=== PATIENT | female | born 1945 | race Caucasian/White ===

== ENCOUNTER 2016-11-14 17:52 | Emergency (ER) | payer MEDICARE, MEDICAID ==
[~2016-11-14] VITALS: Ht 167.6 cm; Wt 61.4 kg
[~2016-11-14 17:52] MED LIST: ACET1TAB17 PO; AMLO5TAB2 PO; ASCO500T PO; B-1210009 PO; COLA100C5 PO; COUM2.5T17 PO; COUM7.5T PO; DOCU100T8 PO; ENEM1ENE4 PR; FLEEENE4 PR; FOLI1TAB4 PO; LISI10TA4 PO; MAPA325T2 PO; MILKSUS PO; MILKSUS5 PO; MIRA3350 PO; NICO14DI20 TD; NICO14PA TD; NICO7DIS4 TD; PEG1POW PO; PERC5TAB12 PO; PERCOCET PO; VANC1VLAD INJ; VITA-193 PO; VITA500T PO; ZOSY1SOL5 IV
[2016-11-14] MEDS ORDERED: NS 1,000 ML IV ONE ×2 (19:45→22:30)
[2016-11-14] MEDS ORDERED: ONDANSETRON 4MG/2ML VIAL (J2405) IV ONE (19:45)
[2016-11-14] MEDS ORDERED: MORPHINE 4 MG/ML 1ML SYRINGE IV PRN (19:45)
[2016-11-14] MEDS ORDERED: GASTROGRAFIN SOLUTION 30ML PO ONE (20:00)
[2016-11-14 20:21] LABS: ADD MANUAL DIFFER YES; MEAN CORPUSCULAR HEMOGLOBIN 33.7 pg (27.0-33.0); MEAN CORPUSCULAR HGB CONC 34.6 g/dl (32.0-36.5); MEAN CORPUSCULAR VOLUME 97.4 fl (80.0-96.0); PLATELET COUNT, AUTOMATED 171 k/mm3 (150-450); RED CELL DISTRIBUTION WIDTH 13.9 % (11.5-14.5); WHITE BLOOD COUNT 13.7 K/mm3 (4.0-10.0)
[2016-11-14] MEDS ORDERED: GASTROGRAFIN SOLUTION 30ML (Q9963) PO ONE (20:30)
[2016-11-14 20:36] LABS: BANDS 5 % (< 11); TOXIC VACUOLATION 1+
[2016-11-14 21:16] LABS: INR 1.21
[2016-11-14 21:33] LABS: ALBUMIN 3.7 GM/DL (3.2-5.2); ALBUMIN/GLOBULIN RATIO 1.19 (1.00-1.93); ALKALINE PHOSPHATASE 203 U/L (45-117); ALT/SGPT 744 U/L (12-78); ANION GAP 12 MEQ/L (8-16); AST/SGOT 906 U/L (15-37); BILIRUBIN,DIRECT 3.9 MG/DL (0.0-0.2); BILIRUBIN,TOTAL 5.2 MG/DL (0.2-1.0); BLOOD UREA NITROGEN 16 MG/DL (7-18); CALCIUM LEVEL 8.5 MG/DL (8.8-10.2); CARBON DIOXIDE LEVEL 22 MEQ/L (21-32); CHLORIDE LEVEL 102 MEQ/L (98-107); CREATININE FOR GFR 0.92 MG/DL (0.55-1.02); GLOMERULAR FILTRATION RATE > 60.0 (>45); GLUCOSE, FASTING 185 MG/DL (80-110); POTASSIUM SERUM 3.4 MEQ/L (3.5-5.1); SODIUM LEVEL 136 MEQ/L (136-145); TOTAL PROTEIN 6.8 GM/DL (6.4-8.2)
[2016-11-14] MEDS ORDERED: ISOVUE-370 76% 100ML VIAL (Q9967) As Ordered ONE (21:38)
--- NOTE | 2016-11-14 22:20 | REPUSA ---
CT of the abdomen and pelvis with contrast Clinical statement: Pain. Technique: Multiple axial CT images were obtained from the base of the lungs through the floor of the pelvis utilizing 5 mm axial slices after administration of nonionic intravenous contrast. Coronal an d sagittal reconstructions were also obtained. No comparison is available. Findings: Chest: The visualized lung bases demonstrated minimal bilateral atelectasis. Abdomen: The liver, spleen, pancreas, kidneys, and adrenal glands are unremarkable. There is a 2.2 x 1.2 cm gallstone in the distal common bile duct, causing moderately severe extrahepatic biliary ducta l dilatation measuring 12 mm. The gallbladder significantly distended, with significant pericholecyst ic free fluid. The gallbladder wall is thickened measuring up to 13 mm. There is a 1.9 cm gallstone i n the neck of the gallbladder is well. The aorta is borderline dilated in the proximal aspect, measur ing 3.1 x 3.1 cm. There is no evidence of abdominal lymphadenopathy. Pelvis: The bowel is unremarkable, with no obstructive or inflammatory changes. There is diffuse left -sided diverticulosis. The urinary bladder is within normal limits. The other pelvic structures appea r grossly intact. There is no evidence of pelvic lymphadenopathy or ascites. Bones: There are no suspicious osseous abnormalities seen. Right hip arthroplasty is intact. Impression: 1. Cholelithiasis with gallbladder wall thickening. Severe extrahepatic biliary ductal dilatation cau sed by a distal obstructing stone. This conglomeration of findings suspicious for acute cholecystitis . Clinical correlation is recommended. 2. Diffuse left-sided diverticulosis without evidence of diverticulitis. 3. 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 4. Minimal atelectasis in the lung bases bilaterally.
[2016-11-14] MEDS ORDERED: PIPERACILLIN/TAZOBACTAM SOD 3.375 GM in D5W MINI-BAG PLUS 50 ML IV ONE (22:45)
[2016-11-15 01:44] VITALS: BP 156/70
--- NOTE | 2016-11-15 07:29 | ECGEPIP ---
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
== END 2016-11-15 01:46 | disposition short-term general hospital (02) ==
LOC: M ED 21:06
DX: K80.70 Calculus of gallbladder and bile duct without cholecystitis without obstruction (principal); R11.2 Nausea with vomiting, unspecified; F17.210 Nicotine dependence, cigarettes, uncomplicated; Z72.89 Other problems related to lifestyle; Z88.5 Allergy status to narcotic agent
CPT/HCPCS: 36415; 74177; 80048; 80076; 82550; 82553; 83605; 83690; 84484; 85025; 85610; 85730; 86850; 86900; 86901; 93005; 93041; 96361; 96374; 96375; 99285; G0480; J2405; J2543; Q9963; Q9967

== ENCOUNTER 2019-02-09 14:40 | Inpatient (IN) | payer MEDICARE, MEDICAID ==
[~2019-02-09] VITALS: Ht 170.2 cm; Wt 54.2 kg
[~2019-02-09 14:40] MED LIST changes: -ACET1TAB17 PO; +ACET1TAB55 PO; -AMLO5TAB2 PO; +AMLO5TAB6 PO; +CYAN500T9 PO; +FOLI1TAB11 PO; -FOLI1TAB4 PO; +MILK120011 PO; -MILKSUS PO; -VITA-193 PO
[2019-02-09] MEDS ORDERED: NORCO, ANEXSIA 5/325MG TABLET (HYDROcodone/ACETAMINOPHEN) PO ONE (15:45)
--- NOTE | 2019-02-09 16:31 | REP ---
CT of the brain without IV contrast: There are no comparisons. There is no subdural or epidural hematoma. There is no intraparenchymal or subarachnoid hemorrhage. There is no edema, mass effect or midline shift. The cortical stripe is unremarkable. There is diffuse cerebral atrophy. Impression: No subdural or epidural hematoma or other acute intracranial hemorrhage. No mass effect, edema or midline shift. Diffuse cerebral atrophy. Electronically Signed by Tin Calzada MD 02/09/2019 04:22 P
[2019-02-09] MEDS ORDERED: LIDOCAINE 2% 5ML JELLY UROJET TOP ONE (16:45)
--- NOTE | 2019-02-09 16:51 | REP ---
AP pelvis: There is a fracture of the left femoral neck. There is no dislocation. Additionally, there is a right hip hemiarthroplasty. Just superior to the arthroplasty. There is a bony fragment within the soft tissues lateral to the right acetabular roof of uncertain significance. This was not present on the postoperative study of the right hip dated 09/15/2015. Left hip two views: There is a fracture of the left femoral neck. There is slight cephalic migration of the distal fracture fragment. There is no dislocation. Electronically Signed by Tin Calzada MD 02/09/2019 04:41 P
[2019-02-09 17:23] LABS: HEMATOCRIT 40.2 % (36.0-47.0); HEMOGLOBIN 13.8 g/dl (12.0-15.5); MEAN CORPUSCULAR HEMOGLOBIN 32.3 pg (27.0-33.0); MEAN CORPUSCULAR HGB CONC 34.3 g/dl (32.0-36.5); MEAN CORPUSCULAR VOLUME 94.1 fl (80.0-96.0); PLATELET COUNT, AUTOMATED 186 10^3/uL (150-450); RED BLOOD COUNT 4.27 10^6/uL (4.00-5.40); WHITE BLOOD COUNT 10.9 10^3/uL (4.0-10.0)
[2019-02-09 17:30] LABS: INR 1.01
--- NOTE | 2019-02-09 17:44 | REP ---
CHEST, PORTABLE: AP supine portable view of the chest was performed and compared to prior study of 09/19/2015. I see no evidence of acute infiltrate. Prominent vasculature and heart shadow is likely caused by AP supine technique. There is mild calcification of the thoracic aorta. The mediastinal silhouette is unremarkable. IMPRESSION: No acute infiltrate. Electronically Signed by Tin Mcgarry MD 02/09/2019 05:59 P
[2019-02-09 17:55] LABS: ALT/SGPT 23 U/L (12-78); BILIRUBIN,DIRECT 0.2 MG/DL (0.0-0.2); BILIRUBIN,TOTAL 0.5 MG/DL (0.2-1.0); BLOOD UREA NITROGEN 17 MG/DL (7-18); CALCIUM LEVEL 9.1 MG/DL (8.8-10.2); CARBON DIOXIDE LEVEL 25 MEQ/L (21-32); CHLORIDE LEVEL 105 MEQ/L (98-107); CREATININE FOR GFR 0.74 MG/DL (0.55-1.30); GLOMERULAR FILTRATION RATE > 60.0 (>39); GLUCOSE, FASTING 106 MG/DL (70-100); POTASSIUM SERUM 3.7 MEQ/L (3.5-5.1); SODIUM LEVEL 138 MEQ/L (136-145); TOTAL PROTEIN 6.7 GM/DL (6.4-8.2)
[2019-02-09] MEDS ORDERED: ACETAMINOPHEN TAB 650MG DOSE (2X325MG) PO PRN (18:30)
[2019-02-09 20:36] VITALS: BP 209/110
[2019-02-09 20:45] VITALS: BP 210/100
[2019-02-09] MEDS ORDERED: MORPHINE 4 MG/ML 1ML VIAL/SYRINGE (J2270) IV PRN (21:00)
[2019-02-09] MEDS ORDERED: HEPARIN SOD (PORCINE) 5000 UNITS/ML VIAL SC SCH (21:00)
[2019-02-09] MEDS ORDERED: hydrALAZINE INJ 20 MG/ML VIAL IV ONE (21:00)
[2019-02-09] MEDS ORDERED: **hydrALAZINE** 50 MG TAB PO ONE (21:30)
--- NOTE | 2019-02-09 21:41 | HPEPDOC ---
[facility] Medical History & Physical Date of Admission Feb 09, 2019 Date of Service: Feb 09, 2019 History and Physical CHIEF COMPLAINT: [hip fracture ] HISTORY OF PRESENT ILLNESS: This is a 73 yo F with pmhx of no pmhx who presented to the ed today for hip pain after a fall. Patient said she tripped today and fell and was not able to get up, so 911 was called. Patient said she was in a good state of health today prior to the fall. She denied fever, chills, chest pain, palpitation, nausea , vomiting , recent illness or poor po intake . PAST MEDICAL HISTORY: 1. Questionable chronic hypertension. 2. Chronic tobacco use. 3. Evidence COPD. PAST SURGICAL HISTORY: 1. Appendectomy 2. left hip surgery ALLERGIES: oxycodone FAMILY HISTORY: The patient reports her mother at the age of 70 from lung cancer. She states her father is alive at the age of 95, he suffers from dementia. SOCIAL HISTORY: The patient reports a history of smoking approximately half a pack a day for the last 33 years. She reports regular alcohol use, citing a couple glasses of wine per day. She denies any illicit drug use, past or present. HOME MEDICATIONS: Please see below. LABORATORY DATA: See below. ROS - all 10 point review of system is negative except for whats listed in HPI Physical exam Gen: NAD, healthy appearing , HEENT: normocephalic, atraumatic, no discharge from ears or nose, no oropharyngeal erythema or exudate, neck is supple, no lymphadenopathy, trachea midline CVS: RRR, normal S1n S2, no murmur, rubs, or gallops, no edema, no jvd Resp: LCTAB, no rhonchi, wheezes or crackles Abd : soft nontender, normal bowel sounds, no rebound tenderness or guarding MSK: decreased in left hip, leg externally rotated and shorter than right, no swelling, Neuro: AOAx3, no confusion, Psych: normal mood and affect, good judgment IMAGING: [There is a fracture of the left femoral neck. There is slight cephalic migration of the distal fracture fragment. There is no dislocation.] MICROBIOLOGY: Please see below. ASSESSMENT and Plan Left Hip Fracture prn pain plan for surgery tomorrow npo after midnight hold AM dose of heparin HTN urgency hydralazine 10mg iv hydralazine 50mg po TID add meds according to improve bp dvt ppx full code, from home , no svc Vital Signs Vital Signs Date Time Temp Pulse Resp B/P (MAP) Pulse Ox O2 Delivery O2 Flow Rate FiO2 02/09/19 19:38 158/98 (118) 02/09/19 19:25 97.4 86 18 99 Room Air Laboratory Data Labs 24H Laboratory Tests 2 02/09/19 17:06: Nucleated Red Blood Cells % (auto) 0.0, Prothrombin Time 13.0, Prothromb Time International Ratio 1.01, Urine Color STRAW, Urine Appearance CLEAR, Urine pH 7.0, Urine Specific [place] 1.008, Urine Protein NEGATIVE, Urine Glucose (UA) NEGATIVE, Urine Ketones NEGATIVE, Urine Blood NEGATIVE, Urine Nitrite NEGATIVE, Urine Bilirubin NEGATIVE, Urine Urobilinogen 0.2, Urine Leukocyte Esterase NEGATIVE, Urine WBC (Auto) 0, Urine RBC (Auto) 0, Urine Hyaline Casts (Auto) 0, Urine Bacteria (Auto) NEGATIVE, Urine Squamous Epithelial Cells 0, Urine Sperm (Auto) , Anion Gap 8, Glomerular Filtration Rate > 60.0, Calcium Level 9.1, Aspartate Amino Transf (AST/SGOT) 21, Alanine Aminotransferase (ALT/SGPT) 23, Alkaline Phosphatase 72, Total Bilirubin 0.5, Direct Bilirubin 0.2, Total Protein 6.7, Albumin 4.0, Albumin/Globulin Ratio 1.48 CBC/BMP Laboratory Tests 02/09/19 17:06 Red Blood Count 4.27, Mean Corpuscular Volume 94.1, Mean Corpuscular Hemoglobin 32.3, Mean Corpuscular Hemoglobin Concent 34.3, Red Cell Distribution Width 13.6 Home Medications No Active Prescriptions or Reported Meds Allergies Coded Allergies: oxycodone (Verified Adverse Reaction, Mild, confusion, 02/09/19) confusion A-FIB/CHADSVASC A-FIB History Current/History of A-Fib/PAF?: No Current PO Anticoag Therapy: No Age/Risk Factor Scoring CHADSVASC: CHADSVASC Response (Comments) Value Age Risk Factor Age 65-74 years old 1 Gender Risk Factor Female 1 Hx of CHF No 0 Hx of HTN No 0 Hx of Stroke/TIA/or VTE No 0 Hx of Diabetes No 0 Hx of Vascular Disease No 0 Total 2 Treatment Treatment ordered: NONE Reason Anticoagulant not given: Not indicated/[id number] DEVI CASEY MD Feb 09, 2019 21:41
--- NOTE | 2019-02-09 21:44 | ECGEPIP ---
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
[2019-02-09 22:15] VITALS: BP 200/120
[2019-02-09] MEDS: NS 1,000 ML IV SCH (22:18)
[2019-02-09] MEDS: DOCUSATE SODIUM 100 MG CAP PO SCH (22:19)
[2019-02-10 02:22] VITALS: BP 178/94
[2019-02-10] MEDS ORDERED: ceFAZolin SOD 2 GM in IV 1 EA IV ONE (06:00)
[2019-02-10 06:18] VITALS: BP 157/81
[2019-02-10 06:19] VITALS: BP 157/81
[2019-02-10] MEDS: **hydrALAZINE** 50 MG TAB PO SCH ×3 (06:23→21:49)
[2019-02-10 06:56] LABS: HEMATOCRIT 40.2 % (36.0-47.0); HEMOGLOBIN 13.8 g/dl (12.0-15.5); MEAN CORPUSCULAR HEMOGLOBIN 32.6 pg (27.0-33.0); MEAN CORPUSCULAR HGB CONC 34.3 g/dl (32.0-36.5); PLATELET COUNT, AUTOMATED 163 10^3/uL (150-450); RED BLOOD COUNT 4.23 10^6/uL (4.00-5.40); WHITE BLOOD COUNT 10.2 10^3/uL (4.0-10.0)
[2019-02-10 07:21] LABS: BLOOD UREA NITROGEN 15 MG/DL (7-18); CALCIUM LEVEL 8.9 MG/DL (8.8-10.2); CARBON DIOXIDE LEVEL 26 MEQ/L (21-32); CHLORIDE LEVEL 104 MEQ/L (98-107); CREATININE FOR GFR 0.71 MG/DL (0.55-1.30); GLOMERULAR FILTRATION RATE > 60.0 (>39); GLUCOSE, FASTING 107 MG/DL (70-100); MAGNESIUM LEVEL 1.9 MG/DL (1.8-2.4); POTASSIUM SERUM 3.9 MEQ/L (3.5-5.1); SODIUM LEVEL 138 MEQ/L (136-145)
--- NOTE | 2019-02-10 08:03 | IPNPDOC ---
Subjective Date Seen The patient was seen on 02/10/19. Subjective Chief Complaint/HPI Denies any recent hx of CP, SOB or orthopnea. No previous hx of CAD,DVT nor complications with anesthesia. Objective Physical Examination General Exam: Positive: Cooperative, No Acute Distress Eye Exam: Positive: PERRLA, Conjunctiva & lids normal, EOMI ENT Exam: Positive: Atraumatic, Mucous membr. moist/pink, Pharynx Normal, Tongue Midline Neck Exam: Positive: Supple; Negative: JVD, thyromegaly Chest Exam: Positive: Clear to auscultation, Normal air movement Heart Exam: Positive: Rate Normal, Regular Rhythm, Normal S1, Normal S2; Negative: Murmurs, Rubs Abdomen Exam: Positive: Normal bowel sounds, Soft; Negative: Tenderness, Hepatospenomegaly Extremity Exam: Positive: Normal pulses, Other (left hip palpable tenderness); Negative: Clubbing, Cyanosis, Edema Skin Exam: Positive: Nl turgor and temperature; Negative: Rash, Breakdown Neuro Exam: Positive: Normal Speech, Cranial Nerves 3-12 NL Psych Exam: Positive: Mental status NL, Mood NL, Oriented x 3 Assessment /Plan Assessment # s/p traumatic fall with Left femoral neck fracture - patient is medially stable to undergo non-elective orthopedic surgery, may proceed to surgery. - SCDs - DVT prophylaxis per orthopedic service # Transient HTN - likely due to pain - started on norvasc + hydralazine upon admit to hospital - monitor # Tobacco use - patient counseled on smoking cessation by me for 5 minutes - nicotine patch # DVT prophylaxis - SCDs - chemical prophylaxis post-operatively per ortho service recommendations Plan/VTE VTE Prophylaxis Ordered?: Yes VTE Exclusion Mechanical Proph: N/A:VTE Prophy Ordered VTE Exclusion Pharmacological: Other (OR this am) VS, I&O, 24H, Fishbone Vital Signs/I&O Vital Signs Date Time Temp Pulse Resp B/P (MAP) Pulse Ox O2 Delivery O2 Flow Rate FiO2 02/10/19 06:23 157/81 02/10/19 06:18 98.6 90 16 97 02/09/19 19:25 Room Air I&O- Last 24 Hours up to 6 AM 02/10/19 06:00 Intake Total 300 ml Output Total 725 ml Balance -425 ml Laboratory Data 24H LABS Laboratory Tests 2 02/09/19 17:06: Nucleated Red Blood Cells % (auto) 0.0, Prothrombin Time 13.0, Prothromb Time International Ratio 1.01, Urine Color STRAW, Urine Appearance CLEAR, Urine pH 7.0, Urine Specific [place] 1.008, Urine Protein NEGATIVE, Urine Glucose (UA) NEGATIVE, Urine Ketones NEGATIVE, Urine Blood NEGATIVE, Urine Nitrite NEGATIVE, Urine Bilirubin NEGATIVE, Urine Urobilinogen 0.2, Urine Leukocyte Esterase NEGATIVE, Urine WBC (Auto) 0, Urine RBC (Auto) 0, Urine Hyaline Casts (Auto) 0, Urine Bacteria (Auto) NEGATIVE, Urine Squamous Epithelial Cells 0, Urine Sperm (Auto) , Anion Gap 8, Glomerular Filtration Rate > 60.0, Calcium Level 9.1, Aspartate Amino Transf (AST/SGOT) 21, Alanine Aminotransferase (ALT/SGPT) 23, Alkaline Phosphatase 72, Total Bilirubin 0.5, Direct Bilirubin 0.2, Total Protein 6.7, Albumin 4.0, Albumin/Globulin Ratio 1.48 02/10/19 06:32: Nucleated Red Blood Cells % (auto) 0.0, Anion Gap 8, Glomerular Filtration Rate > 60.0, Calcium Level 8.9, Blood Urea Nitrogen 15, Creatinine 0.71, Sodium Level 138, Potassium Level 3.9, Chloride Level 104, Carbon Dioxide Level 26, Magnesium Level 1.9 CBC/BMP Laboratory Tests 02/09/19 17:06 Red Blood Count 4.27, Mean Corpuscular Volume 94.1, Mean Corpuscular Hemoglobin 32.3, Mean Corpuscular Hemoglobin Concent 34.3, Red Cell Distribution Width 13.6 02/10/19 06:32 Red Blood Count 4.23, Mean Corpuscular Volume 95.0, Mean Corpuscular Hemoglobin 32.6, Mean Corpuscular Hemoglobin Concent 34.3, Red Cell Distribution Width 13.6, Calcium Level 8.9 JUAN NEIL MD Feb 10, 2019 08:03
[2019-02-10] MEDS: NICOTINE 14 MG/24 HR TRANSDERMAL TD SCH (09:00)
[2019-02-10] MEDS ORDERED: amLODIPine 5 MG TAB PO SCH (09:00)
[2019-02-10] MEDS: PERCOCET 5MG/325MG TAB PO PRN ×3 (09:35→21:50)
[2019-02-10] MEDS: DOCUSATE SODIUM 100 MG CAP PO SCH ×2 (09:49→21:50)
--- NOTE | 2019-02-10 09:59 | REP ---
CT LEFT HIP: Axial CT left hip performed in sagittal and coronal reconstruction images. There is an oblique slightly comminuted fracture of the left femoral neck which extends into the lateral aspect of the femoral head. The fracture appears impacted with the femoral shaft somewhat superiorly displaced. The femoral shaft also appears somewhat rotated with respect to the femoral head in a clockwise direction. There is no dislocation of the femoral head. There is underlying arthritic change at the hip joint with mild joint space narrowing and subchondral sclerosis and spurring. Electronically Signed by Tin Mcgarry MD 02/10/2019 06:28 P
[2019-02-10] MEDS ORDERED: ONDANSETRON 4MG/2ML VIAL (J2405) As Ordered ONE (11:02)
[2019-02-10] MEDS ORDERED: LIDOCAINE 2% INJ 100 MG/5 ML SDV (FOR ANES.) As Ordered ONE (11:02)
[2019-02-10] MEDS ORDERED: dexameTHASONE 4 MG/ML 1ML VIAL (J1100) As Ordered ONE (11:02)
[2019-02-10] MEDS ORDERED: propofoL 200 MG/20 ML VIAL As Ordered ONE (11:02)
[2019-02-10 14:38] VITALS: BP 170/97
[2019-02-10] MEDS: NS 1,000 ML IV SCH (17:00)
[2019-02-10 22:00] VITALS: BP 160/90
[2019-02-11] VITALS (8 sets, daily range): BP systolic 143–160; BP diastolic 77–88
[2019-02-11] MEDS: PERCOCET 5MG/325MG TAB PO PRN ×2 (05:07→21:42)
[2019-02-11] MEDS: **hydrALAZINE** 50 MG TAB PO SCH ×3 (05:08→21:42)
[2019-02-11 06:54] LABS: HEMATOCRIT 36.8 % (36.0-47.0); HEMOGLOBIN 12.7 g/dl (12.0-15.5); MEAN CORPUSCULAR HEMOGLOBIN 32.1 pg (27.0-33.0); MEAN CORPUSCULAR HGB CONC 34.5 g/dl (32.0-36.5); MEAN CORPUSCULAR VOLUME 92.9 fl (80.0-96.0); PLATELET COUNT, AUTOMATED 155 10^3/uL (150-450); RED BLOOD COUNT 3.96 10^6/uL (4.00-5.40); WHITE BLOOD COUNT 9.6 10^3/uL (4.0-10.0)
[2019-02-11 07:19] LABS: BLOOD UREA NITROGEN 17 MG/DL (7-18); CALCIUM LEVEL 8.4 MG/DL (8.8-10.2); CARBON DIOXIDE LEVEL 23 MEQ/L (21-32); CHLORIDE LEVEL 109 MEQ/L (98-107); GLOMERULAR FILTRATION RATE > 60.0 (>39); GLUCOSE, FASTING 98 MG/DL (70-100); POTASSIUM SERUM 3.8 MEQ/L (3.5-5.1); SODIUM LEVEL 141 MEQ/L (136-145)
[2019-02-11] MEDS ORDERED: dexameTHASONE 4 MG/ML 1ML VIAL (J1100) As Ordered ONE (08:10)
[2019-02-11] MEDS ORDERED: LIDOCAINE 2% INJ 100 MG/5 ML SDV (FOR ANES.) As Ordered ONE (08:10)
[2019-02-11] MEDS ORDERED: ONDANSETRON 4MG/2ML VIAL (J2405) As Ordered ONE (08:10)
[2019-02-11] MEDS ORDERED: propofoL 500 MG/50 ML VIAL As Ordered ONE (08:11)
[2019-02-11] MEDS: DOCUSATE SODIUM 100 MG CAP PO SCH ×2 (09:00→21:41)
[2019-02-11] MEDS: NICOTINE 14 MG/24 HR TRANSDERMAL TD SCH (09:00)
[2019-02-11] MEDS ORDERED: ceFAZolin 1GM INJ (J0690 PER 500MG) As Ordered ONE (09:58)
[2019-02-11] MEDS ORDERED: ceFAZolin SOD 2 GM in IV 1 EA IV ONE (10:00)
[2019-02-11] MEDS ORDERED: fentaNYL 250 MCG/5 ML INJECTION (J3010) As Ordered ONE (10:05)
[2019-02-11] MEDS ORDERED: MIDAZOLAM INJ 2 MG/2 ML VIAL (J2250) As Ordered ONE (10:06)
[2019-02-11] MEDS ORDERED: PHENYLephrine HCL 500 MCG/5 ML (100MCG/ML) SYRINGE (J2370) As Ordered ONE (10:23)
[2019-02-11] MEDS ORDERED: ACETAMINOPHEN 1000MG 100ML IV BTL (OFIRMEV) (J0131 PER 10MG) As Ordered ONE (10:35)
[2019-02-11] MEDS ORDERED: EPINEPHrine INJ 1 MG/ML 1ML VIAL As Ordered ONE (10:48)
[2019-02-11] MEDS ORDERED: TRANEXAMIC ACID 100 MG/ML 10ML VIAL As Ordered ONE (10:51)
[2019-02-11] MEDS ORDERED: SUGAMMADEX SODIUM 500 MG/5 ML VIAL (BRIDION) As Ordered ONE (11:11)
[2019-02-11] MEDS ORDERED: ePHEDrine SULFATE 25 MG/5 ML(5MG/ML) SYRINGE As Ordered ONE (11:25)
[2019-02-11] MEDS ORDERED: fentaNYL 100 MCG/2 ML INJECTION (J3010) IV PRN (12:30)
[2019-02-11] MEDS ORDERED: ONDANSETRON 4MG/2ML VIAL (J2405) IV PRN (12:30)
[2019-02-11] MEDS ORDERED: LR 1,000 ML IV SCH ×2 (12:30)
[2019-02-11] MEDS ORDERED: NORCO, ANEXSIA 5/325MG TABLET (HYDROcodone/ACETAMINOPHEN) PO PRN (12:30)
--- NOTE | 2019-02-11 13:03 | REP ---
Left hip two views postoperative study: Comparison is 02/09/2019. There has been interval placement of 80. Left hemiarthroplasty. The component is tightly applied and in satisfactory position alignment. Electronically Signed by Tin Calzada MD 02/11/2019 12:54 P
[2019-02-11] MEDS: amLODIPine 10 MG TAB PO SCH (14:53)
--- NOTE | 2019-02-11 16:19 | IPNPDOC ---
Subjective Date Seen The patient was seen on 02/11/19. Subjective Chief Complaint/HPI do fine postoperatively, no c/o CP nor SOB. Resting in bed watching TV. No post-op nausea/vomiting. Objective Physical Examination General Exam: Positive: Alert, Cooperative, No Acute Distress Eye Exam: Positive: PERRLA, EOMI ENT Exam: Positive: Atraumatic, Mucous membr. moist/pink, Pharynx Normal Neck Exam: Positive: Supple; Negative: JVD, thyromegaly Chest Exam: Positive: Clear to auscultation, Normal air movement Heart Exam: Positive: Rate Normal, Regular Rhythm, Normal S1, Normal S2; Negative: Murmurs, Rubs Abdomen Exam: Positive: Normal bowel sounds, Soft; Negative: Tenderness, Hepatospenomegaly Extremity Exam: Positive: Normal pulses, Other (left hip palpable tenderness); Negative: Clubbing, Cyanosis, Edema Skin Exam: Positive: Nl turgor and temperature; Negative: Rash, Breakdown Neuro Exam: Positive: Normal Speech Psych Exam: Positive: Mental status NL, Mood NL, Oriented x 3 Assessment /Plan Assessment # POD # 0 s/p traumatic fall with Left femoral neck fracture - PT/OT for disposition - am labs - pain control # HTN - started on norvasc + hydralazine upon admit to hospital - increase norvasc 10 mg daily this morning # Tobacco use - patient counseled on smoking cessation - nicotine patch # DVT prophylaxis - SCDs - Xarelto 10 mg daily Plan/VTE VTE Prophylaxis Ordered?: Yes VTE Exclusion Mechanical Proph: N/A:VTE Prophy Ordered VTE Exclusion Pharmacological: Other (OR this am) VS, I&O, 24H, Fishbone Vital Signs/I&O Vital Signs Date Time Temp Pulse Resp B/P (MAP) Pulse Ox O2 Delivery O2 Flow Rate FiO2 02/11/19 15:52 97.9 108 16 143/85 (104) 98 02/11/19 12:30 2 02/09/19 19:25 Room Air I&O- Last 24 Hours up to 6 AM 02/11/19 06:00 Intake Total 0 ml Output Total 0 ml Balance 0 ml Laboratory Data 24H LABS Laboratory Tests 2 02/11/19 06:38: Nucleated Red Blood Cells % (auto) 0.0, Anion Gap 9, Glomerular Filtration Rate > 60.0, Blood Urea Nitrogen 17, Creatinine 0.60, Sodium Level 141, Potassium Level 3.8, Chloride Level 109H, Carbon Dioxide Level 23, Calcium Level 8.4L CBC/BMP Laboratory Tests 02/11/19 06:38 Red Blood Count 3.96 L, Mean Corpuscular Volume 92.9, Mean Corpuscular Hemoglobin 32.1, Mean Corpuscular Hemoglobin Concent 34.5, Red Cell Distribution Width 13.8, Calcium Level 8.4 L JUAN NEIL MD Feb 11, 2019 16:19
[2019-02-12 02:00] VITALS: BP 148/74
[2019-02-12] MEDS: **hydrALAZINE** 50 MG TAB PO SCH ×3 (05:02→21:23)
[2019-02-12] MEDS: PERCOCET 5MG/325MG TAB PO PRN ×3 (05:03→20:00)
[2019-02-12 06:00] VITALS: BP 159/91
[2019-02-12] MEDS ORDERED: PERCOCET 5MG/325MG TAB PO PRN (06:30)
--- NOTE | 2019-02-12 06:44 | RO ---
DATE OF PROCEDURE: 02/11/2019 PREOPERATIVE DIAGNOSIS: Left femoral neck fracture. POSTOPERATIVE DIAGNOSIS: Left femoral neck fracture. PLANNED PROCEDURE: Left hip hemiarthroplasty. PROCEDURE PERFORMED: Left hip hemiarthroplasty. SURGEON: Dr. Sears KITCHEN PORTER: Dr. Waggoner TYPE OF ANESTHETIC: General anesthetic. OPERATIVE PREAMBLE: This is a 73-year-old female who had a mechanical fall. She sustained a displaced left femoral neck fracture. e talked about the pros and cons, the risks and benefits of going ahead with a left hip hemiarthroplasty. She already had a cemented hemiarthroplasty on the right side, so I consented her for the same operation on the left. I marked the left side and we proceeded to surgery. OPERATIVE REPORT: The patient was brought to operating theater. There administered general anesthetic. Two grams IV Ancef and 2 grams of IV tranexamic acid were administered. The patient was prepped and positioned in left lateral decubitus with the aid of the [place] hip positioner. All bony prominences were appropriately padded. The left lower extremity was prepped with alcohol based prep solution and allowed thoroughly dry at least 3 minutes. Limb was draped in the usual sterile fashion. Ioban dressings were used to drape out the groin. Preoperative time-out was performed to confirm the patient, site and the type of operation. I began by making an anterolateral incision centered over the lateral aspect of the proximal femur curving this proximally posteriorly and distally in line with the lateral border of the femur. I dissected down through skin and subcutaneous tissue to meticulous hemostasis. I incised the tensor fascia jono in line with the skin incision. I removed away any bursal tissue. I identified the abductor musculature and sharply elevated this using electrocautery. I developed a plane between the abductors and the capsule. I made a T-shaped capsulotomy and placed #1 Vicryl stay sutures in the capsule. The leg was externally rotated. Using the guide to lon the angle of the cut as well as marking one fingerbreadth above the level of the lesser trochanter I made my femoral neck cut. I then inserted the T- shaped corkscrew instrument in the femoral head and delivered that out of the incision. This measured a size 47 mm head. I began by using the canal finder and lateralizing instruments to broach the femoral canal. I used the box osteotome as well to proper lateralize. I sequentially broached from a #1 up to a size 5. However, the 5 was too big and proud, so I downsized size to 4, which was appropriate. I trialed with a 47 size head and -3 mm neck offset. This reduced quite nicely. Shuck test was normal. No evidence of instability with flexion internal rotation and adduction as well as extension external rotation. No signs of instability or impingement. Components appear to be fitting well and so those were the final sizes. The hip was redislocated and trial components removed. Femoral canal was then thoroughly prepped with pulse lavage irrigation 3 liters normal saline, followed by epinephrine soaked gauze. I sized the distal cement restrictor to be a size 4. I placed a sponge in the acetabulum that was taken out prior to reducing the hip in order to prevent any cement extravasation to the acetabulum. Cement was mixed, allowed to get tacky and sponge removed from the femoral canal and cement inserted into the femoral canal and pressurized using third generation cementing techniques. Component at the distal centralizer placed on it and was inserted ensuring proper version. Once the cement had fully set and cured at least 14 minutes. Trunnion was cleaned and the head with neck. [place] taper was then assembled and tapped into place. It was solid fit. Hip was reduced. Again, stability was checked in all directions found to be stable. No evidence of instability or impingement. Shuck test was normal. Wound was thoroughly irrigated. T-shaped capsulotomy was closed with #2 FiberWire sutures as well as the previous stay sutures. Abductors were repaired as well with #2 FiberWire through bone tunnels to the greater trochanter. Tensor fascia jono was closed in a running fashion with #1 Vicryl suture. Subcutaneous tissues closed in interrupted as well as running #2-0 Vicryl. Skin was cleaned with dry dressing, followed by staple closure. Adaptic 4 x 8 gauze, ABD dressing and cloth tape was then applied. Vitaly head positioner was removed. The patient was transferred to her back and slid over with a pill between her legs to the recovery room bed and taken postanesthetic care unit in stable condition. All sponge, needle, instrument counts were correct. No complications. Estimated blood loss 100 mL. Plan for the patient is to be weightbearing as tolerated. Admitted to the hospital and physical therapy (PT) and occupational therapy (OT) to ensure safety for mobilization for discharge home. Venous thromboembolism (VTE) prophylaxis with Xarelto 10 mg by mouth once daily for approximately 30 days. Discontinue scott at 2 weeks followup in the office as well. X-rays AP of the hip in recovery to ensure proper component positioning. MTDD
[2019-02-12 07:05] LABS: HEMATOCRIT 33.9 % (36.0-47.0); HEMOGLOBIN 11.4 g/dl (12.0-15.5); MEAN CORPUSCULAR HEMOGLOBIN 31.9 pg (27.0-33.0); MEAN CORPUSCULAR HGB CONC 33.6 g/dl (32.0-36.5); PLATELET COUNT, AUTOMATED 141 10^3/uL (150-450); RED BLOOD COUNT 3.57 10^6/uL (4.00-5.40); WHITE BLOOD COUNT 9.6 10^3/uL (4.0-10.0)
[2019-02-12 07:18] LABS: BLOOD UREA NITROGEN 18 MG/DL (7-18); CALCIUM LEVEL 8.5 MG/DL (8.8-10.2); CARBON DIOXIDE LEVEL 23 MEQ/L (21-32); CHLORIDE LEVEL 107 MEQ/L (98-107); CREATININE FOR GFR 0.68 MG/DL (0.55-1.30); GLOMERULAR FILTRATION RATE > 60.0 (>39); GLUCOSE, FASTING 109 MG/DL (70-100); POTASSIUM SERUM 3.7 MEQ/L (3.5-5.1); SODIUM LEVEL 139 MEQ/L (136-145)
[2019-02-12] MEDS: ceFAZolin SOD 2 GM in IV 1 EA IV SCH ×2 (07:42→16:52)
[2019-02-12] MEDS: MIRALAX *UNIT DOSE* 17GM PACKET PO SCH (07:43)
[2019-02-12] MEDS: NICOTINE 14 MG/24 HR TRANSDERMAL TD SCH ×2 (07:44→08:53)
[2019-02-12] MEDS: SENOKOT S TAB PO SCH ×2 (07:44→20:00)
[2019-02-12] MEDS: amLODIPine 10 MG TAB PO SCH (07:44)
[2019-02-12] MEDS: DOCUSATE SODIUM 100 MG CAP PO SCH ×2 (07:45→20:00)
[2019-02-12] MEDS: MOM 30ML SUSPENSION UDC PO SCH (07:45)
[2019-02-12 10:00] VITALS: BP 122/65
--- NOTE | 2019-02-12 10:57 | IPN ---
DATE: 02/12/2019 CHIEF COMPLAINT: Postoperative day 1 left hip cemented hemiarthroplasty. HISTORY OF PRESENT ILLNESS: This 73-year-old female sustained a left displaced femoral neck fracture. She underwent left hip cemented hemiarthroplasty yesterday. She is doing well. Pain is settling down. No concerns from her or the nursing staff. PHYSICAL EXAMINATION: Vital signs: Temperature 98.8, blood pressure 102/62. Pulse rate 108. Resp rate 18, 95% on room air. She is sitting up in bed resting comfortably. Bulky dressing in situ. No strike through on the dressing. Thigh compartment soft. Normal sensation throughout the foot, warm and well perfused. She is able to wiggle her toes, dorsiflex, and plantar flex foot. Radiograph was reviewed from postanesthetic care unit AP and frog leg lateral. Bones appear well positioned and hip joint is well reduced and free of complication. Laboratory examination from this morning reveals hemoglobin 11.4. ASSESSMENT/PLAN: 73-year-old female who is weightbearing as tolerated. VTE prophylaxis with Xarelto 10 mg p.o. once daily. Placement may be an issue as she lives alone. With Jennifer bauman nurse practitioner we will work on this over the weekend and likely into early next week.
--- NOTE | 2019-02-12 12:00 | IPNPDOC ---
Subjective Date Seen The patient was seen on 02/12/19. Subjective Chief Complaint/HPI Daughter at bedside. States mom is a drinker, patient denies hx of ETOH withdrawal syndrome. c/o pain this morning involving the hip no signs of acute DTs Denies any SOB/CP BP controlled this am Objective Physical Examination General Exam: Positive: Alert, Cooperative, No Acute Distress Eye Exam: Positive: PERRLA, EOMI ENT Exam: Positive: Atraumatic, Mucous membr. moist/pink, Pharynx Normal Neck Exam: Positive: Supple; Negative: JVD, thyromegaly Chest Exam: Positive: Clear to auscultation, Normal air movement Heart Exam: Positive: Rate Normal, Regular Rhythm, Normal S1, Normal S2, Other (BP controlled); Negative: Murmurs, Rubs Abdomen Exam: Positive: Normal bowel sounds, Soft; Negative: Tenderness, Hepatospenomegaly Extremity Exam: Positive: Normal pulses, Other (left hip palpable tenderness); Negative: Clubbing, Cyanosis, Edema Skin Exam: Positive: Nl turgor and temperature; Negative: Rash, Breakdown Neuro Exam: Positive: Normal Speech Psych Exam: Positive: Mental status NL, Mood NL, Oriented x 3 Assessment /Plan Assessment # POD # 1 s/p traumatic fall with Left femoral neck fracture - PT/OT for disposition - am labs stable - pain control per ortho - D/w Dr. Sears # HTN - started on norvasc + hydralazine upon admit to hospital - increase norvasc 10 mg daily this morning - BP stable this morning # Tobacco use - patient counseled on smoking cessation - nicotine patch # DVT prophylaxis - SCDs - Xarelto 10 mg daily Plan/VTE VTE Prophylaxis Ordered?: Yes VTE Exclusion Mechanical Proph: N/A:VTE Prophy Ordered VTE Exclusion Pharmacological: Other (OR this am) VS, I&O, 24H, Fishbone Vital Signs/I&O Vital Signs Date Time Temp Pulse Resp B/P (MAP) Pulse Ox O2 Delivery O2 Flow Rate FiO2 02/12/19 10:00 99.1 92 20 122/65 (84) 96 02/12/19 03:06 2.0 02/09/19 19:25 Room Air I&O- Last 24 Hours up to 6 AM 02/12/19 06:00 Intake Total 1390 ml Output Total 100 ml Balance 1290 ml Laboratory Data 24H LABS Laboratory Tests 2 02/12/19 06:40: Nucleated Red Blood Cells % (auto) 0.0, Anion Gap 9, Glomerular Filtration Rate > 60.0, Blood Urea Nitrogen 18, Creatinine 0.68, Sodium Level 139, Potassium Level 3.7, Chloride Level 107, Carbon Dioxide Level 23, Calcium Level 8.5L CBC/BMP Laboratory Tests 02/12/19 06:40 Red Blood Count 3.57 L, Mean Corpuscular Volume 95.0, Mean Corpuscular Hemoglobin 31.9, Mean Corpuscular Hemoglobin Concent 33.6, Red Cell Distribution Width 13.8, Calcium Level 8.5 L JUAN NEIL MD Feb 12, 2019 12:00
[2019-02-12 14:00] VITALS: BP 106/60
[2019-02-12] MEDS ORDERED: RIVAROXABAN 10 MG TAB (XARELTO) PO SCH (18:00)
[2019-02-12 22:00] VITALS: BP 147/77
--- NOTE | 2019-02-13 01:06 | CR ---
DATE OF CONSULTATION: 02/09/2019 CHIEF COMPLAINT: Left hip pain. HISTORY OF PRESENT ILLNESS: Jovita Flores is a 73-year-old female who had a mechanical fall from standing, which resulted in left hip pain. Patient was unable to ambulate afterwards. Denied fevers, chills, chest pain, or loss of consciousness. PAST MEDICAL HISTORY: 1. Possible chronic hypertension. 2. Chronic tobacco use. 3. Chronic obstructive pulmonary disease (COPD). PAST SURGICAL HISTORY: 1. Appendectomy. 2. Right hip hemiarthroplasty. ALLERGIES: OXYCODONE. SOCIAL HISTORY: Patient smokes one-half pack a day for the past 33 years. She drinks a couple glasses of wine per day. PHYSICAL EXAMINATION: General: Well appearing, alert and oriented, no acute distress. Cardiovascular: Regular rate and rhythm. Abdomen: Soft, nontender. Extremities: Left lower extremity skin is intact. Leg is shortened and externally rotated. Intact tibialis anterior (TA), gastrocnemius-soleus (GS), extensor hallucis longus (EHL), flexor hallucis longus (FHL). Normal sensation to light touch of the superficial peroneal, deep peroneal, tibial distribution. Palpable dorsalis pedis (DP) pulse. LABS: Patient's hematocrit is 40.2 and potassium is 3.7. White count is 10.9. HOME MEDICATIONS: None. IMAGING: X-rays of the left hip show a displaced femoral neck fracture. These radiographs are quite rotated. There is also evidence of a right hip hemiarthroplasty. IMPRESSION: Left displaced femoral neck fracture. PLAN: Patient will be admitted to the medical service. She will be taken to the operating room (OR) by orthopedics once cleared for surgery. She should be on bed rest with pain control until then. ALEXANDER
[2019-02-13] MEDS: **hydrALAZINE** 50 MG TAB PO SCH ×2 (05:15→13:38)
[2019-02-13 06:00] VITALS: BP 147/78
[2019-02-13] MEDS ORDERED: AMLO10TA5 PO (06:12)
[2019-02-13] MEDS ORDERED: HYDR50TA PO (06:12)
[2019-02-13] MEDS ORDERED: SENN-52 PO (06:12)
[2019-02-13] MEDS ORDERED: NICO14PA TD (06:12)
[2019-02-13] MEDS ORDERED: XARE10TA PO (06:12)
[2019-02-13] MEDS ORDERED: PERC5TAB12 PO (06:12)
[2019-02-13] MEDS ORDERED: COLA100C5 PO (06:12)
[2019-02-13] MEDS ORDERED: ACET1TAB55 PO (06:12)
[2019-02-13 07:24] LABS: HEMATOCRIT 34.1 % (36.0-47.0); HEMOGLOBIN 11.5 g/dl (12.0-15.5); MEAN CORPUSCULAR HEMOGLOBIN 32.2 pg (27.0-33.0); MEAN CORPUSCULAR HGB CONC 33.7 g/dl (32.0-36.5); MEAN CORPUSCULAR VOLUME 95.5 fl (80.0-96.0); PLATELET COUNT, AUTOMATED 150 10^3/uL (150-450); RED BLOOD COUNT 3.57 10^6/uL (4.00-5.40); WHITE BLOOD COUNT 8.7 10^3/uL (4.0-10.0)
--- NOTE | 2019-02-13 08:06 | IPN ---
DATE: 02/13/2019 CHIEF COMPLAINT: Postoperative day 2 left hip cemented hemiarthroplasty. HISTORY OF PRESENT ILLNESS: This 73-year-old female seen in the kan on [place] at [facility], postoperative day 2 following left hip fracture surgery. She is doing well. Complains of a little bit of pain from yesterday, but overall seems well controlled and comfortable today. She had surgery on the contralateral side so she knows how things usually go. PHYSICAL EXAMINATION: Vital signs: Temperature 97.9, blood pressure 147/78. Pulse rate 98. Respiratory rate 18, 95% on room air. She is alert and oriented times three. Mood and affect pleasant and positive. Station normal. Bulky dressing has been changed to the left hip to a small Optifoam. No strike through. No bleeding or swelling of the left hip. Normal sensation throughout the foot. Foot is warm and well perfused. Good pedal pulses. She is able to wiggle her toes, dorsiflex, and plantar flex foot. Laboratory examination reveals a hemoglobin today of 11.5, stable. ASSESSMENT/PLAN: 73-year-old female is mobilizing, weightbearing as tolerated on the left lower extremity. She will see the physical therapist again today to ensure that she si safe from her mobility standpoint. She may be a bit of a disposition issue as she lives along, but with the help of Jennifer, our nurse practitioner, we are working on that side of things as well.
[2019-02-13] MEDS: DOCUSATE SODIUM 100 MG CAP PO SCH (08:11)
[2019-02-13] MEDS: MIRALAX *UNIT DOSE* 17GM PACKET PO SCH (08:11)
[2019-02-13] MEDS: SENOKOT S TAB PO SCH (08:11)
[2019-02-13] MEDS: MOM 30ML SUSPENSION UDC PO SCH (08:11)
[2019-02-13] MEDS: amLODIPine 10 MG TAB PO SCH (08:14)
[2019-02-13] MEDS: NICOTINE 14 MG/24 HR TRANSDERMAL TD SCH (08:14)
[2019-02-13 13:38] VITALS: BP 158/83
[2019-02-13] MEDS: PERCOCET 5MG/325MG TAB PO PRN (13:38)
--- NOTE | 2019-02-13 13:52 | IPNPDOC ---
Subjective Date Seen The patient was seen on 02/13/19. Subjective Chief Complaint/HPI doing fine, pain better controlled this morning. afebrile, no CP/SOB Objective Physical Examination General Exam: Positive: Alert, No Acute Distress Eye Exam: Positive: PERRLA ENT Exam: Positive: Atraumatic, Mucous membr. moist/pink, Pharynx Normal Neck Exam: Positive: Supple; Negative: JVD, thyromegaly Chest Exam: Positive: Clear to auscultation, Normal air movement Heart Exam: Positive: Rate Normal, Regular Rhythm, Normal S1, Normal S2, Other (BP controlled); Negative: Murmurs, Rubs Abdomen Exam: Positive: Normal bowel sounds, Soft; Negative: Tenderness, Hepatospenomegaly Extremity Exam: Positive: Normal pulses, Other (left hip palpable tenderness); Negative: Clubbing, Cyanosis, Edema Skin Exam: Positive: Nl turgor and temperature; Negative: Rash, Breakdown Neuro Exam: Positive: Normal Speech, Cranial Nerves 3-12 NL Psych Exam: Positive: Mental status NL, Oriented x 3 Assessment /Plan Assessment # POD # 2 s/p traumatic fall with Left femoral neck fracture - discharge to ARU today # HTN - started on norvasc + hydralazine upon admit to hospital - increase norvasc 10 mg daily this morning - BP stable this morning, but will need ongoing titration to reach goal # Tobacco use - patient counseled on smoking cessation - nicotine patch # DVT prophylaxis - SCDs - Xarelto 10 mg daily Plan/VTE VTE Prophylaxis Ordered?: Yes VTE Exclusion Mechanical Proph: N/A:VTE Prophy Ordered VTE Exclusion Pharmacological: Other (OR this am) VS, I&O, 24H, [facility] Vital Signs/I&O Vital Signs Date Time Temp Pulse Resp B/P (MAP) Pulse Ox O2 Delivery O2 Flow Rate FiO2 02/13/19 13:38 18 02/13/19 13:38 158/83 02/13/19 06:00 97.9 98 95 02/12/19 03:06 2.0 02/09/19 19:25 Room Air I&O- Last 24 Hours up to 6 AM 02/13/19 06:00 Intake Total 1520 ml Balance 1520 ml Laboratory Data 24H LABS Laboratory Tests 2 02/13/19 07:15: Nucleated Red Blood Cells % (auto) 0.0 CBC/BMP Laboratory Tests 02/13/19 07:15 Red Blood Count 3.57 L, Mean Corpuscular Volume 95.5, Mean Corpuscular Hemoglobin 32.2, Mean Corpuscular Hemoglobin Concent 33.7, Red Cell Distribution Width 13.8 JUAN NEIL MD Feb 13, 2019 13:52
[2019-02-13 14:00] VITALS: BP 127/78
--- NOTE | 2019-02-14 17:52 | DSES ---
DATE OF ADMISSION: 02/09/2019 DATE OF DISCHARGE: 02/13/2019 DISCHARGE DIAGNOSES: 1. Status post ground level fall with left femoral neck fracture. 2. Hypertension. 3. Tobacco abuse. PROCEDURES PERFORMED DURING THIS HOSPITALIZATION: Left hip hemiarthroplasty. CONSULTANTS ON THE CASE: Dr. Sears of orthopedic service. DISPOSITION: The patient is discharged to the acute rehabilitation unit. DISCHARGE INSTRUCTIONS: The patient is instructed to followup with her primary care provider (PCP) upon discharge from the acute rehabilitation unit for monitoring of her blood pressure. The patient is to followup with the orthopedic service as specified in the discharge instructions in approximately the next several weeks. CONDITION ON DISCHARGE: Stable. Relevant imaging studies obtained during the patient's hospital stay were an x-ray of the left hip, two views, which showed fracture of the left femoral neck with slight cephalic migration of the distal fracture fragment. There was no dislocation. CT of the head without contrast showed no acute intracranial event. Chest x-ray, one view, which showed no acute infiltrates. Relevant laboratories obtained during the patient's hospital stay are the following: Hemoglobin was 13.8 and decreased to 11.5 on the day of discharge, hematocrit 40.2 and decreased to 34.1, white count was 8.7, platelet count was 150,000. Sodium is 138, potassium 3.7, chloride 105, bicarbonate 25, anion gap is 8, blood urea nitrogen (BUN) is 17, creatinine 0.74, calcium is 9.1, total bilirubin is 0.5, aspartate aminotransferase (AST) is 21, alanine aminotransferase (ALT) is 23, alkaline phosphatase is 72, total protein 7, albumin 4. Urinalysis was negative and not indicative of any acute infection. Prothrombin time (PT) was 13, international normalized ratio (INR) was 1. DISCHARGE MEDICATIONS: - acetaminophen 650 every four hours as needed for pain or fever for the next 14 days - Norvasc 10 mg by mouth daily - Colace 100 mg twice a day - hydralazine 50 mg every eight hours - nicotine patch 14 mg daily - Percocet 5/325 one tablet every four hours as needed for pain for the next 6-10 days, dispense #30 - Xarelto 10 mg by mouth daily for the next 32 days for deep vein thrombosis (DVT) prophylaxis following her hip surgery - Senna Plus tablet one tablet twice a day for the next 30 days HOSPITAL COURSE: Ms. Flores is a very pleasant 73-year-old woman who apparently has no significant medical history other than tobacco abuse who presented to the hospital following a ground level fall with complaints of left hip pain. On arrival to the emergency department (ED), the patient underwent trauma films which indicated that she had a left femoral fracture. She was admitted to the hospitalist service and orthopedic service was consulted. The patient was cleared for surgery by the medical service and underwent left hemiarthroplasty under the care of Dr. Sears. Her postoperative course was uncomplicated. The patient lives alone and was thought to be at high risk for adverse effect if she went home. Therefore, she was seen by physical therapy (PT)/occupational therapy (OT) and recommended for placement to the acute rehabilitation unit. From a medical standpoint, the patient had some hypertension on admission. She was started on hydralazine as well as Norvasc. These medications were titrated to relatively stable blood pressure control. She does need ongoing followup with her primary care provider (PCP) for further modifications to her blood pressure medications. At the time of discharge, the patient's temperature is 97.9, pulse is 98 and regular, respirations 18, blood pressure is 150/83, oxygen saturation is 95% on room air. In general, the patient is alert and oriented times three. She appears to be in no acute distress. She is an elderly, female who appears her stated age. Her skin is without pallor, clamminess, or jaundice. Her head is atraumatic. Pupils are symmetric and react to light. Oropharynx is clear. Neck is supple. No thyromegaly. Lung sounds appreciated without rales or rhonchi. Heart is S1, S2 with no murmur, rubs or gallops. Abdomen is soft, nontender, nondistended. Extremities are without significant cyanosis, clubbing, or edema. A total of 30 minutes was spent completing all discharging work.
== END 2019-02-13 16:47 | DRG 470 ==
LOC: EDBD 14:40 → M ED 14:40 → M ED INP 18:27 → M MS5PR 20:20
PROVIDERS: ADMIT Internal Medicine; ATTEND Internal Medicine
PROC: 0SRS0J9 Replacement of Left Hip Joint, Femoral Surface with Synthetic Substitute, Cemented, Open Approach (ICD-10-PCS; principal; 2019-02-11 10:00)
DX: S72.062A Displaced articular fracture of head of left femur, initial encounter for closed fracture (principal); W18.09XA Striking against other object with subsequent fall, initial encounter; Y92.9 Unspecified place or not applicable; I16.0 Hypertensive urgency; I10 Essential (primary) hypertension; F17.200 Nicotine dependence, unspecified, uncomplicated; J44.9 Chronic obstructive pulmonary disease, unspecified; Z88.5 Allergy status to narcotic agent; Z96.641 Presence of right artificial hip joint

== ENCOUNTER 2019-02-13 14:37 | Inpatient (IN) | payer MEDICARE, MEDICAID ==
[~2019-02-13] VITALS: Ht 167.6 cm; Wt 56.7 kg
[~2019-02-13 14:37] MED LIST changes: +AMLO10TA5 PO; +HYDR50TA PO; +SENN-52 PO; +XARE10TA PO
[2019-02-13] MEDS ORDERED: MOM 30ML SUSPENSION UDC PO PRN (17:00)
[2019-02-13] MEDS ORDERED: BISACODYL 5 MG TAB PO PRN (17:00)
[2019-02-13 17:15] VITALS: BP 159/70
[2019-02-13] MEDS: PANTOPRAZOLE 40MG TAB (PROTONIX) PO SCH (18:49)
[2019-02-13] MEDS: RIVAROXABAN 10 MG TAB (XARELTO) PO SCH (18:49)
[2019-02-13] MEDS: oxyCODONE 5MG TAB PO PRN (18:51)
[2019-02-13 20:00] VITALS: BP 141/74
[2019-02-13] MEDS: SENOKOT S TAB PO SCH (21:28)
[2019-02-13] MEDS: BACLOFEN 5MG PER 1/2 TABLET PO PRN (21:28)
[2019-02-13] MEDS: **hydrALAZINE** 50 MG TAB PO SCH (21:29)
[2019-02-13] MEDS: ACETAMINOPHEN 500 MG TAB PO SCH (21:29)
[2019-02-14 06:00] VITALS: BP 161/76
[2019-02-14] MEDS: **hydrALAZINE** 50 MG TAB PO SCH ×3 (06:05→21:19)
[2019-02-14] MEDS: NICOTINE 14 MG/24 HR TRANSDERMAL TD SCH (09:00)
[2019-02-14] MEDS: PANTOPRAZOLE 40MG TAB (PROTONIX) PO SCH (09:31)
[2019-02-14] MEDS: amLODIPine 10 MG TAB PO SCH (09:32)
[2019-02-14] MEDS: oxyCODONE 5MG TAB PO PRN (09:32)
[2019-02-14] MEDS: SENOKOT S TAB PO SCH ×2 (09:32→21:20)
[2019-02-14] MEDS: ACETAMINOPHEN 500 MG TAB PO SCH ×3 (09:33→21:20)
[2019-02-14 11:02] LABS: BASO % 0.1 % (0.0-1.0); EOS # 0.1 10^3/uL (0.0-0.5); EOS % 1.1 % (0.0-3.0); HEMATOCRIT 34.1 % (36.0-47.0); HEMOGLOBIN 11.3 g/dl (12.0-15.5); LYMPH # 0.6 10^3/uL (1.5-5.0); LYMPH % 7.1 % (24.0-44.0); MEAN CORPUSCULAR HEMOGLOBIN 31.9 pg (27.0-33.0); MEAN CORPUSCULAR HGB CONC 33.1 g/dl (32.0-36.5); MEAN CORPUSCULAR VOLUME 96.3 fl (80.0-96.0); MONO # 0.4 10^3/uL (0.0-0.8); MONO % 4.1 % (0.0-5.0); NEUTROPHILS # 7.4 10^3/uL (1.5-8.5); NEUTROPHILS % 87.2 % (36.0-66.0); PLATELET COUNT, AUTOMATED 183 10^3/uL (150-450); RED BLOOD COUNT 3.54 10^6/uL (4.00-5.40); WHITE BLOOD COUNT 8.4 10^3/uL (4.0-10.0)
[2019-02-14 11:17] LABS: ALBUMIN 2.5 GM/DL (3.2-5.2); ALT/SGPT 18 U/L (12-78); BILIRUBIN,TOTAL 0.4 MG/DL (0.2-1.0); BLOOD UREA NITROGEN 25 MG/DL (7-18); CALCIUM LEVEL 8.2 MG/DL (8.8-10.2); CARBON DIOXIDE LEVEL 23 MEQ/L (21-32); CHLORIDE LEVEL 106 MEQ/L (98-107); CREATININE FOR GFR 0.72 MG/DL (0.55-1.30); GLOMERULAR FILTRATION RATE > 60.0 (>39); GLUCOSE, FASTING 200 MG/DL (70-100); POTASSIUM SERUM 4.1 MEQ/L (3.5-5.1); SODIUM LEVEL 139 MEQ/L (136-145); TOTAL PROTEIN 5.4 GM/DL (6.4-8.2)
[2019-02-14 14:00] VITALS: BP 125/61
--- NOTE | 2019-02-14 15:53 | HPEPDOC ---
Therapeutic Consultant Note DATE OF ADMISSION: 02/13/19 SOURCE OF ADMISSION INFORMATION: [facility] records and patient CHIEF COMPLAINT: left hip fracture HISTORY OF PRESENT ILLNESS: 73F pmh HTN, tobacco use, COPD, ETOH use who had a mechanical fall at home and presented to [facility] ED on 02/09/19 complaining of left leg pain and an inability to walk. She was found to be in hypertensive urgency and started on IV hydralazine. Hip X-ray revealed, There is a fracture of the left femoral neck. There is slight cephalic migration of the distal fracture fragment. There is no dislocation. CT left hip was also ordered showing, There is an oblique slightly comminuted fracture of the left femoral neck which extends into the lateral aspect of the femoral head. The fracture appears impacted with the femoral shaft somewhat superiorly displaced. The femoral shaft also appears somewhat rotated with respect to the femoral head in a clockwise direction. There is no dislocation of the femoral head. She was seen by orthopedics, was cleared by medicine and underwent a left hip lilibeth-arthroplasty on 02/11/19. She was placed on Xarelto for DVT prophylaxis and evaluated by therapy who found her to have impairments in ADLs and mobility below her prior level of function and deemed medically appropriate for discharge to ARU on 02/13/19. REVIEW OF SYSTEMS: The following is a completed review of systems and has been reviewed. Review of systems otherwise unremarkable. PAIN: Patient self reports left hip pain EYES: No recent vision changes EARS, NOSE, & THROAT: No throat pain, or dysphagia, or rhinorrhea CARDIOVASCULAR: Denies chest pain or palpitations PULMONARY: Denies shortness of breath GASTROINTESTINAL: Denies constipation/diarrhea GENITOURINARY: denies dysuria MUSCULOSKELETAL: left hip hemiarthroplasty NEUROLOGICAL:no tremor or seizure activity HEMATOLOGICAL: no easy bruising SKIN: elbow abrasions, hip incision PSYCHIATRIC: +confused All other review of systems found to be negative. PAST MEDICAL HISTORY: as per HPI PAST SURGICAL HISTORY: Appendectomy, Left hip surgery ALLERGIES: Please see below. MEDICATIONS: Please see below. FAMILY HISTORY: Lung cancer, dementia SOCIAL HISTORY: daily ETOH, +smoker DIET: low sodium PHYSICAL EXAMINATION: VITAL SIGNS: Please see below. GENERAL: Pleasant and cooperative. No acute distress. HEENT: PERRL. Extraocular movements intact. Clear conjunctiva. CARDIOVASCULAR: Regular rate and rhythm. No murmurs, rubs, or gallops LUNGS: Clear to auscultation bilaterally. No wheezes. No rhonchi. ABDOMEN: Soft, nontender, nondistended. Positive bowel sounds. Normal active bowel sounds NEUROLOGICAL: Alert and oriented times to person and place, not time. Cranial nerves II through XII grossly intact. Sensation grossly intact including 1st web space on the left EXTREMITIES: 5/5 strength bilateral upper extremities. 5\5 strength right lower extremity. left ankle DF and EHL 5/5 otherwise limited exam due to surgery. SKIN: left hip incision with sanguinous drainage, bilateral elbow abrasions LABORATORY DATA: Please see below. IMAGING:Imaging documentation personally reviewed by record FUNCTIONAL STATUS: Premorbid: Independent with all activities of daily life as well as mobility household distances On Admission: Min Assist for functional transfers, Mod assist for toilet tr ansfers and ambulation, total assist lower body dressing GOALS: Modified independent household distances, stairs, functional transfers, dressing, toileting, medical optimization, caregiver training, assess for DME needs ASSESSMENT:73-year-old F with past medical history of HTN who presents status post fall with left hip fracture PLAN: 1. Rehab: PT- strengthen, stretch, and maintain ROM bilat LE while maintaining hip precautions OT- strengthen, stretch, and maintain ROM bilat LE, teach adaptive techniques for ADL management with hip precautions 2. Ortho: s/p left hip lilibeth-arthroplasty, ortho consulted 3. Neuro: confusion, will monitor, do infectious work-up and start daily thiamine for ETOH use 3. Cardiac: HTN continue Amlodipine and hydralazine, medicine consulted to assist in management 4. Resp: COPD, incentive spirometer, duonebs prn, monitor for infection 5. Endo: elevated glucose will check A1C 6. DVT ppx: Xarelto, teds 7. : monitor PVRs 8. GI ppx: Protonix 9. Pain: tylneol, oxycodone and baclofen prn 10. Dispo: TBD POST ADMISSION PHYSICIAN EVALUATION: Medical and functional status: Description of medical status, medical assessment: As above. Rehabilitation diagnosis and current and prior cold morbid medical conditions as above. Risk of complications and plans to mitigate them as above. Description of functional status current status is as above. Prior status as above. Status compared to preadmission: There are no clinically significant differences between the patient's current status and the information described on the preadmission screening document. Treatment plan anticipated: Treatment plan is as described above. Required disciplines including physical therapy, occupational therapy, others as noted above. Intensity of services: 3 hours a day, 6 days a week. Special considerations: There are no specific special or safety considerations that would likely preclude immediate implementation of an intensive rehabilitation program or subsequently influence the plan of care. ATTESTATION: Considering all the information above, it is my best judgment that this patient requires intensive rehabilitation therapy as described above and an inpatient hospital environment due to the complexity of nursing, medical, and rehabilitation needs required by the patient. Furthermore, this patient can reasonably be expected to participate in an benefit from an inpatient rehabilitation stay with an interdisciplinary team approach to the delivery of rehabilitation care under the direction and supervision of rehabilitation physician. PROGNOSIS: Excellent. ESTIMATED LENGTH OF STAY:18-21 days. PROJECTED DISCHARGE DESTINATION: Home with family support and any durable medical equipment required to increase functional safety and mobility TIME SPENT COUNSELING AND COORDINATING INITIAL CARE: Greater than 70 minutes. Vital Signs Vital Sign - Last 24 Hours 02/13/19 02/13/19 02/13/19 02/13/19 17:15 18:51 20:00 21:29 Temp 97.6 99.5 Pulse 89 65 Resp 18 20 18 B/P (MAP) 159/70 (99) 141/74 (96) 141/74 Pulse Ox 94 95 02/14/19 02/14/19 02/14/19 02/14/19 06:00 06:05 09:32 09:32 Temp 98.6 Pulse 86 86 Resp 16 20 B/P (MAP) 161/76 (104) 161/76 161/76 Pulse Ox 97 02/14/19 02/14/19 10:10 14:00 Temp 97.3 Pulse 100 Resp 20 17 B/P (MAP) 125/61 (82) Pulse Ox 95 Laboratory Data CBC/BMP Laboratory Tests 02/14/19 10:21 Red Blood Count 3.54 L, Mean Corpuscular Volume 96.3 H, Mean Corpuscular Hemoglobin 31.9, Mean Corpuscular Hemoglobin Concent 33.1, Red Cell Distribution Width 13.9, Neutrophils (%) (Auto) 87.2 H, Lymphocytes (%) (Auto) 7.1 L, Monocytes (%) (Auto) 4.1, Eosinophils (%) (Auto) 1.1, Basophils (%) (Auto) 0.1, Neutrophils # (Auto) 7.4, Lymphocytes # (Auto) 0.6 L, Monocytes # (Auto) 0.4, Eosinophils # (Auto) 0.1, Basophils # (Auto) 0.0, Calcium Level 8.2 L, Aspartate Amino Transf (AST/SGOT) 25, Alanine Aminotransferase (ALT/SGPT) 18, Alkaline Phosphatase 59, Total Bilirubin 0.4, Total Protein 5.4 L, Albumin 2.5 L Labs 24H Laboratory Tests 2 02/14/19 10:21: Immature Granulocyte % (Auto) 0.4, White Blood Count 8.4, Red Blood Count 3.54L, Hemoglobin 11.3L, Hematocrit 34.1L, Mean Corpuscular Volume 96.3H, Mean Corpuscular Hemoglobin 31.9, Mean Corpuscular Hemoglobin Concent 33.1, Red Cell Distribution Width 13.9, Platelet Count 183, Neutrophils (%) (Auto) 87.2H, Lymphocytes (%) (Auto) 7.1L, Monocytes (%) (Auto) 4.1, Eosinophils (%) (Auto) 1.1, Basophils (%) (Auto) 0.1, Neutrophils # (Auto) 7.4, Lymphocytes # (Auto) 0.6L, Monocytes # (Auto) 0.4, Eosinophils # (Auto) 0.1, Basophils # (Auto) 0.0, Nucleated Red Blood Cells % (auto) 0.0, Anion Gap 10, Glomerular Filtration Rate > 60.0, Blood Urea Nitrogen 25H, Creatinine 0.72, Sodium Level 139, Potassium Level 4.1, Chloride Level 106, Carbon Dioxide Level 23, Calcium Level 8.2L, Aspartate Amino Transf (AST/SGOT) 25, Alanine Aminotransferase (ALT/SGPT) 18, Alkaline Phosphatase 59, Total Bilirubin 0.4, Total Protein 5.4L, Albumin 2.5L, Albumin/Globulin Ratio 0.86L Home Medications Scheduled Amlodipine Besylate (Amlodipine Besylate) 10 Mg Tablet, 10 MG PO DAILY Docusate Sodium (Colace) 100 Mg Capsule, 100 MG PO BID Hydralazine HCl (Hydralazine HCl) 50 Mg Tablet, 50 MG PO Q8H Nicotine (Nicotine Patch) 14 Mg Patch.td24, 1 PATCH TD DAILY Rivaroxaban (Xarelto) 10 Mg Tablet, 10 MG PO DAILY Sennosides/Docusate Sodium (Senna Plus Tablet) 1 Each Tablet, 1 TAB PO BID Scheduled PRN Acetaminophen (Acetaminophen) 325 Mg Tablet, 650 MG PO Q4H PRN for PAIN OR FEVER Oxycodone HCl/Acetaminophen (Percocet 5-325 mg Tablet) 1 Each Tablet, 1 TAB PO Q4H PRN for PAIN Allergies Coded Allergies: oxycodone (Verified Adverse Reaction, Mild, confusion, 02/09/19) confusion A-FIB/CHADSVASC A-FIB History Current/History of A-Fib/PAF?: No EDUARDO SANABRIA MD Feb 14, 2019 15:53
[2019-02-14] MEDS: RIVAROXABAN 10 MG TAB (XARELTO) PO SCH (17:54)
[2019-02-14 20:00] VITALS: BP 157/79
[2019-02-15] MEDS: oxyCODONE 5MG TAB PO PRN (04:17)
[2019-02-15 06:00] VITALS: BP 135/78
[2019-02-15] MEDS: **hydrALAZINE** 50 MG TAB PO SCH ×3 (06:00→21:20)
[2019-02-15 06:39] LABS: EOS # 0.2 10^3/uL (0.0-0.5); EOS % 2.1 % (0.0-3.0); HEMATOCRIT 31.8 % (36.0-47.0); HEMOGLOBIN 10.6 g/dl (12.0-15.5); LYMPH # 0.8 10^3/uL (1.5-5.0); LYMPH % 10.9 % (24.0-44.0); MEAN CORPUSCULAR HEMOGLOBIN 30.8 pg (27.0-33.0); MEAN CORPUSCULAR HGB CONC 33.3 g/dl (32.0-36.5); MEAN CORPUSCULAR VOLUME 92.4 fl (80.0-96.0); MONO # 0.4 10^3/uL (0.0-0.8); MONO % 5.3 % (0.0-5.0); NEUTROPHILS # 5.8 10^3/uL (1.5-8.5); NEUTROPHILS % 81.1 % (36.0-66.0); PLATELET COUNT, AUTOMATED 171 10^3/uL (150-450); RED BLOOD COUNT 3.44 10^6/uL (4.00-5.40); WHITE BLOOD COUNT 7.2 10^3/uL (4.0-10.0)
[2019-02-15 07:01] LABS: BLOOD UREA NITROGEN 18 MG/DL (7-18); CALCIUM LEVEL 8.3 MG/DL (8.8-10.2); CARBON DIOXIDE LEVEL 26 MEQ/L (21-32); CHLORIDE LEVEL 107 MEQ/L (98-107); CREATININE FOR GFR 0.52 MG/DL (0.55-1.30); GLOMERULAR FILTRATION RATE > 60.0 (>39); GLUCOSE, FASTING 103 MG/DL (70-100); POTASSIUM SERUM 3.8 MEQ/L (3.5-5.1); SODIUM LEVEL 141 MEQ/L (136-145)
[2019-02-15 07:15] LABS: HEMOGLOBIN A1c 4.8 %
[2019-02-15] MEDS: NICOTINE 14 MG/24 HR TRANSDERMAL TD SCH (09:00)
[2019-02-15] MEDS: SENOKOT S TAB PO SCH ×2 (09:06→21:19)
[2019-02-15] MEDS: DONEPEZIL 5 MG TAB PO SCH (09:06)
[2019-02-15] MEDS: PANTOPRAZOLE 40MG TAB (PROTONIX) PO SCH (09:06)
[2019-02-15] MEDS: THIAMINE HCL 200 MG/2 ML VIAL (J3411) IM SCH (09:07)
[2019-02-15] MEDS: ACETAMINOPHEN 500 MG TAB PO SCH ×3 (09:07→21:20)
[2019-02-15] MEDS: amLODIPine 10 MG TAB PO SCH (09:07)
[2019-02-15 14:00] VITALS: BP 145/82
[2019-02-15] MEDS: RIVAROXABAN 10 MG TAB (XARELTO) PO SCH (17:33)
--- NOTE | 2019-02-15 18:55 | IPNPDOC ---
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 REVIEW OF SYSTEMS: The following is a completed review of systems and has been reviewed. Review of systems otherwise unremarkable. PAIN: Patient self reports left hip pain EYES: No recent vision changes EARS, NOSE, & THROAT: No throat pain, or dysphagia, or rhinorrhea CARDIOVASCULAR: Denies chest pain or palpitations PULMONARY: Denies shortness of breath GASTROINTESTINAL: Denies constipation/diarrhea GENITOURINARY: denies dysuria MUSCULOSKELETAL: left hip hemiarthroplasty NEUROLOGICAL:no tremor or seizure activity HEMATOLOGICAL: no easy bruising SKIN: elbow abrasions, hip incision PSYCHIATRIC: +confused All other review of systems found to be negative. PHYSICAL EXAMINATION: VITAL SIGNS: Please see below. GENERAL: Pleasant and cooperative. No acute distress. HEENT: PERRL. Extraocular movements intact. Clear conjunctiva. CARDIOVASCULAR: Regular rate and rhythm. No murmurs, rubs, or gallops LUNGS: Clear to auscultation bilaterally. No wheezes. No rhonchi. ABDOMEN: Soft, nontender, nondistended. Positive bowel sounds. Normal active bowel sounds NEUROLOGICAL: Alert and oriented times to person and place, not time. Cranial nerves II through XII grossly intact. Sensation grossly intact including 1st web space on the left EXTREMITIES: 5/5 strength bilateral upper extremities. 5\5 strength right lower extremity. left ankle DF and EHL 5/5 otherwise limited exam due to surgery. SKIN: left hip incision with sanguinous drainage, bilateral elbow abrasions ASSESSMENT:73-year-old F with past medical history of HTN who presents status post fall with left hip fracture PLAN: 1. Rehab: PT- strengthen, stretch, and maintain ROM bilat LE while maintaining hip precautions, walking with RW OT- strengthen, stretch, and maintain ROM bilat LE, teach adaptive techniques f or ADL management with hip precautions 2. Ortho: s/p left hip lilibeth-arthroplasty, ortho consulted 3. Neuro: confusion, will monitor, do infectious work-up and start daily thiamine for ETOH use 3. Cardiac: HTN continue Amlodipine and hydralazine, medicine consulted to assist in management 4. Resp: COPD, incentive spirometer, duonebs prn, monitor for infection 5. Endo: elevated glucose will check A1C 6. DVT ppx: Xarelto, teds 7. : monitor PVRs 8. GI ppx: Protonix 9. Pain: tylneol, oxycodone and baclofen prn 10. Dispo: 02/28/19 to home vs 14/12 care, unclear at this time Allergies Coded Allergies: oxycodone (Verified Adverse Reaction, Mild, confusion, 02/09/19) confusion Vital Signs Vital Signs Date Time Temp Pulse Resp B/P (MAP) Pulse Ox O2 Delivery O2 Flow Rate FiO2 02/15/19 14:08 145/82 02/15/19 14:00 98.3 80 17 94 Laboratory Data CBC/BMP Laboratory Tests 02/15/19 06:27 Red Blood Count 3.44 L, Mean Corpuscular Volume 92.4, Mean Corpuscular Hemo globin 30.8, Mean Corpuscular Hemoglobin Concent 33.3, Red Cell Distribution Width 13.7, Neutrophils (%) (Auto) 81.1 H, Lymphocytes (%) (Auto) 10.9 L, Monocytes (%) (Auto) 5.3 H, Eosinophils (%) (Auto) 2.1, Basophils (%) (Auto) 0.0, Neutrophils # (Auto) 5.8, Lymphocytes # (Auto) 0.8 L, Monocytes # (Auto) 0.4, Eosinophils # (Auto) 0.2, Basophils # (Auto) 0.0, Calcium Level 8.3 L Labs 24H Laboratory Tests 2 02/15/19 06:27: Immature Granulocyte % (Auto) 0.6, White Blood Count 7.2, Red Blood Count 3.44L, Hemoglobin 10.6L, Hematocrit 31.8L, Mean Corpuscular Volume 92.4, Mean Corpuscular Hemoglobin 30.8, Mean Corpuscular Hemoglobin Concent 33.3, Red Cell Distribution Width 13.7, Platelet Count 171, Neutrophils (%) (Auto) 81.1H, Lymphocytes (%) (Auto) 10.9L, Monocytes (%) (Auto) 5.3H, Eosinophils (%) (Auto) 2.1, Basophils (%) (Auto) 0.0, Neutrophils # (Auto) 5.8, Lymphocytes # (Auto) 0.8L, Monocytes # (Auto) 0.4, Eosinophils # (Auto) 0.2, Basophils # (Auto) 0.0, Nucleated Red Blood Cells % (auto) 0.0, Anion Gap 8, Glomerular Filtration Rate > 60.0, Estimated Mean Plasma Glucose 91, Hemoglobin A1c 4.8, Blood Urea Nitrogen 18, Creatinine 0.52L, Sodium Level 141, Potassium Level 3.8, Chloride Level 107, Carbon Dioxide Level 26, Calcium Level 8.3L Current Medications Current Medications Current Medications Medications (Trade) Dose Ordered Sig/Milady Route PRN Reason Start Time Stop Time Status Last Admin Dose Admin Acetaminophen (Tylenol Tab) 1,000 mg TID PO 02/13/19 21:00 02/15/19 17:33 Amlodipine Besylate (Norvasc) 10 mg DAILY PO 02/14/19 09:00 02/15/19 09:07 Baclofen (Lioresal) 5 mg TID PRN PO SPASMS 02/13/19 17:00 02/13/19 21:28 Bisacodyl (Dulcolax Tab) 5 mg DAILYPRN PRN PO CONSTIPATION 02/13/19 17:00 Donepezil HCl (AriCEPT) 5 mg DAILY PO 02/15/19 09:00 02/15/19 09:06 Home Med (Med Rec Complete!) ASDIRECTED XX 02/13/19 17:45 02/13/19 17:45 DC Hydralazine HCl (Apresoline) 50 mg Q8H PO 02/13/19 22:00 02/15/19 14:08 Magnesium Hydroxide (Milk Of Magnesia) 30 ml DAILYPRN PRN PO CONSTIPATION 02/13/19 17:00 Nicotine (Nicoderm Cq 14mg) 1 patch DAILY TD 02/14/19 09:00 Oxycodone HCl (Roxicodone, Oxyir) 5 mg Q4HP PRN PO PAIN 02/13/19 17:00 02/15/19 04:17 Pantoprazole Sodium (Protonix) 40 mg DAILY PO 02/13/19 09:00 02/15/19 09:06 Rivaroxaban (Xarelto) 10 mg DAILY@1800 PO 02/13/19 18:00 02/15/19 17:33 Senna/Docusate Sodium (Senokot S) 1 tab BID PO 02/13/19 21:00 02/15/19 09:06 Thiamine HCl (VITAMIN B1 INJection) 100 mg DAILY IM 02/15/19 09:00 02/15/19 09:07 EDUARDO SANABRIA MD Feb 15, 2019 18:55
[2019-02-15 20:00] VITALS: BP 126/67
[2019-02-16 04:00] VITALS: BP 154/72
[2019-02-16 06:00] VITALS: BP 141/75
[2019-02-16] MEDS: **hydrALAZINE** 50 MG TAB PO SCH ×3 (06:24→21:13)
[2019-02-16] MEDS: NICOTINE 14 MG/24 HR TRANSDERMAL TD SCH (09:00)
[2019-02-16] MEDS: SENOKOT S TAB PO SCH ×2 (09:00→21:12)
[2019-02-16] MEDS: THIAMINE HCL 200 MG/2 ML VIAL (J3411) IM SCH (09:09)
[2019-02-16] MEDS: DONEPEZIL 5 MG TAB PO SCH (09:09)
[2019-02-16] MEDS: amLODIPine 10 MG TAB PO SCH (09:09)
[2019-02-16] MEDS: PANTOPRAZOLE 40MG TAB (PROTONIX) PO SCH (09:09)
[2019-02-16] MEDS: ACETAMINOPHEN 500 MG TAB PO SCH ×3 (09:09→21:12)
[2019-02-16 14:00] VITALS: BP 136/78
[2019-02-16] MEDS: RIVAROXABAN 10 MG TAB (XARELTO) PO SCH (18:03)
[2019-02-16 20:00] VITALS: BP 132/73
[2019-02-16] MEDS: BACLOFEN 5MG PER 1/2 TABLET PO PRN (21:12)
[2019-02-17] MEDS: BACLOFEN 5MG PER 1/2 TABLET PO PRN ×2 (02:17→18:13)
[2019-02-17 06:00] VITALS: BP 140/74
[2019-02-17] MEDS: oxyCODONE 5MG TAB PO PRN (06:28)
[2019-02-17] MEDS: **hydrALAZINE** 50 MG TAB PO SCH ×3 (06:33→22:00)
[2019-02-17] MEDS: NICOTINE 14 MG/24 HR TRANSDERMAL TD SCH (09:00)
[2019-02-17] MEDS: SENOKOT S TAB PO SCH ×2 (09:00→21:14)
[2019-02-17] MEDS: amLODIPine 10 MG TAB PO SCH (10:02)
[2019-02-17] MEDS: PANTOPRAZOLE 40MG TAB (PROTONIX) PO SCH (10:02)
[2019-02-17] MEDS: ACETAMINOPHEN 500 MG TAB PO SCH ×3 (10:02→21:14)
[2019-02-17] MEDS: DONEPEZIL 5 MG TAB PO SCH (10:02)
[2019-02-17] MEDS: THIAMINE HCL 200 MG/2 ML VIAL (J3411) IM SCH (10:02)
--- NOTE | 2019-02-17 13:56 | IPNPDOC ---
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 REVIEW OF SYSTEMS: The following is a completed review of systems and has been reviewed. Review of systems otherwise unremarkable. PAIN: Patient self reports left hip pain EYES: No recent vision changes EARS, NOSE, & THROAT: No throat pain, or dysphagia, or rhinorrhea CARDIOVASCULAR: Denies chest pain or palpitations PULMONARY: Denies shortness of breath GASTROINTESTINAL: Denies constipation/diarrhea GENITOURINARY: denies dysuria MUSCULOSKELETAL: left hip hemiarthroplasty NEUROLOGICAL:no tremor or seizure activity HEMATOLOGICAL: no easy bruising SKIN: elbow abrasions, hip incision PSYCHIATRIC: +confused All other review of systems found to be negative. PHYSICAL EXAMINATION: VITAL SIGNS: Please see below. GENERAL: Pleasant and cooperative. No acute distress. HEENT: PERRL. Extraocular movements intact. Clear conjunctiva. CARDIOVASCULAR: Regular rate and rhythm. No murmurs, rubs, or gallops LUNGS: Clear to auscultation bilaterally. No wheezes. No rhonchi. ABDOMEN: Soft, nontender, nondistended. Positive bowel sounds. Normal active bowel sounds NEUROLOGICAL: Alert and oriented times to person and place, not time. Cranial nerves II through XII grossly intact. Sensation grossly intact including 1st web space on the left EXTREMITIES: 5/5 strength bilateral upper extremities. 5\5 strength right lower extremity. left ankle DF and EHL 5/5 otherwise limited exam due to surgery. SKIN: left hip incision with sanguinous drainage, bilateral elbow abrasions ASSESSMENT:73-year-old F with past medical history of HTN who presents status post fall with left hip fracture PLAN: 1. Rehab: PT- strengthen, stretch, and maintain ROM bilat LE while maintaining hip precautions, walking with RW OT- strengthen, stretch, and maintain ROM bilat LE, teach adaptive techniques for ADL management with hip precautions 2. Ortho: s/p left hip lilibeth-arthroplasty, ortho consulted 3. Neuro: confusion, will monitor, do infectious work-up and start daily thiamine for ETOH use 3. Cardiac: HTN continue Amlodipine and hydralazine, medicine consulted to assist in management 4. Resp: COPD, incentive spirometer, duonebs prn, monitor for infection 5. Endo: elevated glucose will check A1C 6. DVT ppx: Xarelto, teds 7. : monitor PVRs 8. GI ppx: Protonix 9. Pain: tylneol, oxycodone and baclofen prn 10. Dispo: 02/28/19 to home vs 14/12 care, unclear at this time Allergies Coded Allergies: oxycodone (Verified Adverse Reaction, Mild, confusion, 02/09/19) confusion Vital Signs Vital Signs Date Time Temp Pulse Resp B/P (MAP) Pulse Ox O2 Delivery O2 Flow Rate FiO2 02/17/19 10:02 90 140/74 02/17/19 06:00 97.0 16 100 Current Medications Current Medications Current Medications Medications (Trade) Dose Ordered Sig/Milady Route PRN Reason Start Time Stop Time Status Last Admin Dose Admin Acetaminophen (Tylenol Tab) 1,000 mg TID PO 02/13/19 21:00 02/17/19 10:02 Amlodipine Besylate (Norvasc) 10 mg DAILY PO 02/14/19 09:00 02/17/19 10:02 Baclofen (Lioresal) 5 mg TID PRN PO SPASMS 02/13/19 17:00 02/17/19 02:17 Bisacodyl (Dulcolax Tab) 5 mg DAILYPRN PRN PO CONSTIPATION 02/13/19 17:00 Donepezil HCl (AriCEPT) 5 mg DAILY PO 02/15/19 09:00 02/17/19 10:02 Home Med (Med Rec Complete!) ASDIRECTED XX 02/13/19 17:45 02/13/19 17:45 DC Hydralazine HCl (Apresoline) 50 mg Q8H PO 02/13/19 22:00 02/17/19 06:33 Magnesium Hydroxide (Milk Of Magnesia) 30 ml DAILYPRN PRN PO CONSTIPATION 02/13/19 17:00 Nicotine (Nicoderm Cq 14mg) 1 patch DAILY TD 02/14/19 09:00 Oxycodone HCl (Roxicodone, Oxyir) 5 mg Q4HP PRN PO PAIN 02/13/19 17:00 02/15/19 04:17 Pantoprazole Sodium (Protonix) 40 mg DAILY PO 02/13/19 09:00 02/17/19 10:02 Rivaroxaban (Xarelto) 10 mg DAILY@1800 PO 02/13/19 18:00 02/16/19 18:03 Senna/Docusate Sodium (Senokot S) 1 tab BID PO 02/13/19 21:00 02/16/19 21:12 Thiamine HCl (VITAMIN B1 INJection) 100 mg DAILY IM 02/15/19 09:00 02/17/19 10:02 EDUARDO SANABRIA MD Feb 17, 2019 13:56
--- NOTE | 2019-02-17 13:58 | IPNPDOC ---
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 REVIEW OF SYSTEMS: The following is a completed review of systems and has been reviewed. Review of systems otherwise unremarkable. PAIN: Patient self reports left hip pain EYES: No recent vision changes EARS, NOSE, & THROAT: No throat pain, or dysphagia, or rhinorrhea CARDIOVASCULAR: Denies chest pain or palpitations PULMONARY: Denies shortness of breath GASTROINTESTINAL: Denies constipation/diarrhea GENITOURINARY: denies dysuria MUSCULOSKELETAL: left hip hemiarthroplasty NEUROLOGICAL:no tremor or seizure activity HEMATOLOGICAL: no easy bruising SKIN: elbow abrasions, hip incision PSYCHIATRIC: +confused All other review of systems found to be negative. PHYSICAL EXAMINATION: VITAL SIGNS: Please see below. GENERAL: Pleasant and cooperative. No acute distress. HEENT: PERRL. Extraocular movements intact. Clear conjunctiva. CARDIOVASCULAR: Regular rate and rhythm. No murmurs, rubs, or gallops LUNGS: Clear to auscultation bilaterally. No wheezes. No rhonchi. ABDOMEN: Soft, nontender, nondistended. Positive bowel sounds. Normal active bowel sounds NEUROLOGICAL: Alert and oriented times to person and place, not time. Cranial nerves II through XII grossly intact. Sensation grossly intact including 1st web space on the left EXTREMITIES: 5/5 strength bilateral upper extremities. 5\5 strength right lower extremity. left ankle DF and EHL 5/5 otherwise limited exam due to surgery. SKIN: left hip incision with sanguinous drainage, bilateral elbow abrasions ASSESSMENT:73-year-old F with past medical history of HTN who presents status post fall with left hip fracture PLAN: 1. Rehab: PT- strengthen, stretch, and maintain ROM bilat LE while maintaining hip precautions, walking with RW OT- strengthen, stretch, and maintain ROM bilat LE, teach adaptive techniques for ADL management with hip precautions 2. Ortho: s/p left hip lilibeth-arthroplasty, ortho consulted 3. Neuro: confusion, will monitor, no UTI, c/ daily thiamine for ETOH use -will start Donepezil, will need neurology referral upon discharge 3. Cardiac: HTN continue Amlodipine and hydralazine, medicine consulted to assist in management 4. Resp: COPD, incentive spirometer, duonebs prn, monitor for infection 5. Endo: elevated glucose will check A1C 6. DVT ppx: Xarelto, teds 7. : monitor PVRs 8. GI ppx: Protonix 9. Pain: tylneol, oxycodone and baclofen prn 10. Dispo: 02/28/19 to home vs 14/12 care, unclear at this time Allergies Coded Allergies: oxycodone (Verified Adverse Reaction, Mild, confusion, 02/09/19) confusion Vital Signs Vital Signs Date Time Temp Pulse Resp B/P (MAP) Pulse Ox O2 Delivery O2 Flow Rate FiO2 02/17/19 10:02 90 140/74 02/17/19 06:00 97.0 16 100 Current Medications Current Medications Current Medications Medications (Trade) Dose Ordered Sig/Milady Route PRN Reason Start Time Stop Time Status Last Admin Dose Admin Acetaminophen (Tylenol Tab) 1,000 mg TID PO 02/13/19 21:00 02/17/19 10:02 Amlodipine Besylate (Norvasc) 10 mg DAILY PO 02/14/19 09:00 02/17/19 10:02 Baclofen (Lioresal) 5 mg TID PRN PO SPASMS 02/13/19 17:00 02/17/19 02:17 Bisacodyl (Dulcolax Tab) 5 mg DAILYPRN PRN PO CONSTIPATION 02/13/19 17:00 Donepezil HCl (AriCEPT) 5 mg DAILY PO 02/15/19 09:00 02/17/19 10:02 Home Med (Med Rec Complete!) ASDIRECTED XX 02/13/19 17:45 02/13/19 17:45 DC Hydralazine HCl (Apresoline) 50 mg Q8H PO 02/13/19 22:00 02/17/19 06:33 Magnesium Hydroxide (Milk Of Magnesia) 30 ml DAILYPRN PRN PO CONSTIPATION 02/13/19 17:00 Nicotine (Nicoderm Cq 14mg) 1 patch DAILY TD 02/14/19 09:00 Oxycodone HCl (Roxicodone, Oxyir) 5 mg Q4HP PRN PO PAIN 02/13/19 17:00 02/15/19 04:17 Pantoprazole Sodium (Protonix) 40 mg DAILY PO 02/13/19 09:00 02/17/19 10:02 Rivaroxaban (Xarelto) 10 mg DAILY@1800 PO 02/13/19 18:00 02/16/19 18:03 Senna/Docusate Sodium (Senokot S) 1 tab BID PO 02/13/19 21:00 02/16/19 21:12 Thiamine HCl (VITAMIN B1 INJection) 100 mg DAILY IM 02/15/19 09:00 02/17/19 10:02 EDUARDO SANABRIA MD Feb 17, 2019 13:58
[2019-02-17 14:00] VITALS: BP 139/68
[2019-02-17] MEDS: RIVAROXABAN 10 MG TAB (XARELTO) PO SCH (18:13)
[2019-02-17 20:00] VITALS: BP 122/70
[2019-02-18 04:00] VITALS: BP 172/82
[2019-02-18 04:30] VITALS: BP 172/82
[2019-02-18] MEDS: oxyCODONE 5MG TAB PO PRN (04:43)
[2019-02-18 06:38] VITALS: BP 140/75
[2019-02-18] MEDS: **hydrALAZINE** 50 MG TAB PO SCH ×3 (06:43→21:25)
[2019-02-18] MEDS: PANTOPRAZOLE 40MG TAB (PROTONIX) PO SCH (08:34)
[2019-02-18] MEDS: DONEPEZIL 5 MG TAB PO SCH (08:34)
[2019-02-18] MEDS: SENOKOT S TAB PO SCH ×2 (08:34→20:36)
[2019-02-18] MEDS: ACETAMINOPHEN 500 MG TAB PO SCH ×3 (08:34→20:37)
[2019-02-18] MEDS: amLODIPine 10 MG TAB PO SCH (08:34)
[2019-02-18] MEDS: THIAMINE HCL 200 MG/2 ML VIAL (J3411) IM SCH (08:35)
[2019-02-18] MEDS: NICOTINE 14 MG/24 HR TRANSDERMAL TD SCH (08:35)
[2019-02-18] MEDS ORDERED: DONEPEZIL 5 MG TAB PO SCH (09:00)
[2019-02-18 14:00] VITALS: BP 127/68
[2019-02-18] MEDS: RIVAROXABAN 10 MG TAB (XARELTO) PO SCH (17:45)
[2019-02-18 20:00] VITALS: BP 107/55
[2019-02-19] MEDS: oxyCODONE 5MG TAB PO PRN (03:50)
[2019-02-19 06:00] VITALS: BP 126/69
[2019-02-19] MEDS: **hydrALAZINE** 50 MG TAB PO SCH ×3 (06:00→21:53)
[2019-02-19] MEDS: amLODIPine 10 MG TAB PO SCH (08:13)
[2019-02-19] MEDS: THIAMINE HCL 200 MG/2 ML VIAL (J3411) IM SCH (08:13)
[2019-02-19] MEDS: DONEPEZIL 5 MG TAB PO SCH (08:13)
[2019-02-19] MEDS: PANTOPRAZOLE 40MG TAB (PROTONIX) PO SCH (08:13)
[2019-02-19] MEDS: SENOKOT S TAB PO SCH ×2 (08:13→21:52)
[2019-02-19] MEDS: NICOTINE 14 MG/24 HR TRANSDERMAL TD SCH (08:14)
[2019-02-19] MEDS: ACETAMINOPHEN 500 MG TAB PO SCH ×3 (08:14→21:52)
--- NOTE | 2019-02-19 11:04 | HPEPDOC ---
General Date of Admission Feb 13, 2019 at 17:15 Date of Service: Feb 19, 2019 Chief Complaint The patient is a 73-year-old female admitted with a reason for visit of Left Displaced Femoral Neck Fracture. Source: Patient, Old records Exam Limitations: No limitations Severity: Moderate History of Present Illness Consultation Request Consultation requested by Dr Dunne Consulted for management of medical commorbidities. HPI: 73F pmh HTN, tobacco use, COPD, ETOH use who had a mechanical fall at home and presented to [facility] ED on 02/09/19 complaining of left leg pain and an inability to walk. She was found Comminuted Left femoral neck fracture which extends into the lateral aspect of the femoral head and was hypertensive urgency. Her blood pressure was controlled and subsequently underwent a left hip lilibeth-arthroplasty on 02/11/19. She was placed on Xarelto for DVT prophylaxis and evaluated by therapy who found her to have impairments in ADLs and mobility below her prior level of function and deemed medically appropriate for discharge to ARU on 02/13/19. Hospitalist consulted for management of medical comorbidities. Today she complains of some pain at the left hip at the site of surgery about 3/10 in intensity dull aching no radiation. She is oriented to place and person but does not know the time or date. As per nurses she does get confused. Home Medications Scheduled Amlodipine Besylate (Amlodipine Besylate) 10 Mg Tablet, 10 MG PO DAILY Docusate Sodium (Colace) 100 Mg Capsule, 100 MG PO BID Hydralazine HCl (Hydralazine HCl) 50 Mg Tablet, 50 MG PO Q8H Nicotine (Nicotine Patch) 14 Mg Patch.td24, 1 PATCH TD DAILY Rivaroxaban (Xarelto) 10 Mg Tablet, 10 MG PO DAILY Sennosides/Docusate Sodium (Senna Plus Tablet) 1 Each Tablet, 1 TAB PO BID Scheduled PRN Acetaminophen (Acetaminophen) 325 Mg Tablet, 650 MG PO Q4H PRN for PAIN OR FEVER Oxycodone HCl/Acetaminophen (Percocet 5-325 mg Tablet) 1 Each Tablet, 1 TAB PO Q 4H PRN for PAIN Allergies Coded Allergies: oxycodone (Verified Adverse Reaction, Mild, confusion, 02/09/19) confusion Past Medical History Medical History hypertension. Chronic tobacco use. Chronic obstructive pulmonary disease (COPD). Surgical History Appendectomy. Right hip hemiarthroplasty. Family History The patient reports her mother at the age of 70 from lung cancer. She states her father is alive at the age of 95, he suffers from dementia. Social History * Smoker: current smoker Alcohol: heavy Drugs: denies A-FIB/CHADSVASC A-FIB History Current/History of A-Fib/PAF?: No Review of Systems Constitutional: Denies: Chills, Fever, Night Sweats Eyes: Denies: Pain, Vision change ENT: Denies: Head Aches, Ear Pain, Dysphagia Skin: Denies: Rash, Lesions, Breakdown Pulmonary: Denies: Dyspnea, Cough Cardiovascular: Denies: Chest Pain, Palpitations, Orthopnea, Paroxysmal Noc. Dyspnea, Lt Headedness Gastrointestinal: Denies: Nausea, Vomiting, Abdominal Pain, Diarrhea Genitourinary: Denies: Dysuria, Frequency, Incontinence, Retention Hematologic: Denies: Bruising, Bleeding Excessively Musculoskeletal: Reports: Joint Pain Neurological: Denies: Numbness, Change in speech, Confusion Psych: Reports: Mood Normal; Denies: Depression Physical Examination General Exam: Positive: Alert, Cooperative, No Acute Distress Eye Exam: Positive: PERRLA, Conjunctiva & lids normal, EOMI; Negative: Sclera icteric ENT Exam: Positive: Atraumatic, Mucous membr. moist/pink, Pharynx Normal Neck Exam: Positive: Supple; Negative: JVD, thyromegaly Chest Exam: Positive: Clear to auscultation, Normal air movement Heart Exam: Positive: Rate Normal, Regular Rhythm, Normal S1, Normal S2; Negative: Murmurs, Rubs Abdomen Exam: Positive: Normal bowel sounds, Soft; Negative: Tenderness, Hepatospenomegaly Extremity Exam: Negative: Clubbing, Cyanosis, Edema Skin Exam: Positive: Nl turgor and temperature; Negative: Breakdown, Lesion Neuro Exam: Positive: Normal Gait, Normal Speech, Strength at 5/5 X4 ext, Normal Tone Psych Exam: Positive: Mental status NL, Mood NL, Other (oriented x 2) Vital Signs Vital Signs Date Time Temp Pulse Resp B/P (MAP) Pulse Ox O2 Delivery O2 Flow Rate FiO2 02/19/19 08:13 107 126/69 02/19/19 06:00 97.6 17 100 Assessment/Plan 73F pmh HTN, tobacco use, COPD, ETOH use who had a mechanical fall at home and presented to [facility] ED on 02/09/19 complaining of left leg pain and an inability to walk. She was found Comminuted Left femoral neck fracture which extends into the lateral aspect of the femoral head and was hypertensive urgency. Her blood pressure was controlled and subsequently underwent a left hip lilibeth-arthroplasty on 02/11/19. She was placed on Xarelto for DVT prophylaxis and evaluated by therapy who found her to have impairments in ADLs and mobility below her prior level of function and deemed medically appropriate for discharge to ARU on 02/13/19. Hospitalist consulted for management of medical comorbidities. Left femoral neck fracture s/p left hip lilibeth arthroplasty on 02/11/19 On tylneol, oxycodone and baclofen prn Confusion CT head shows Diffuse cerebral atrophy. Has underlying dementia age related and from chronic alcohol abuse. continue daily thiamine for ETOH use started on Donepezil will need neurology referral upon discharge HTN controlled continue Amlodipine and hydralazine COPD incentive spirometer, duonebs prn, monitor for infection DVT ppx: Xarelto, josephines GI ppx: Protonix Plan / VTE VTE Prophylaxis Ordered?: Yes VENTURA SALAZAR MD Feb 19, 2019 11:04
[2019-02-19 14:00] VITALS: BP 132/67
[2019-02-19] MEDS: RIVAROXABAN 10 MG TAB (XARELTO) PO SCH (17:23)
[2019-02-19 22:00] VITALS: BP 127/63
[2019-02-20] MEDS: **hydrALAZINE** 50 MG TAB PO SCH ×3 (05:24→20:54)
[2019-02-20] MEDS: oxyCODONE 5MG TAB PO PRN ×2 (05:30→11:23)
[2019-02-20 06:00] VITALS: BP 136/76
[2019-02-20] MEDS: DONEPEZIL 5 MG TAB PO SCH (08:54)
[2019-02-20] MEDS: THIAMINE HCL 200 MG/2 ML VIAL (J3411) IM SCH (08:54)
[2019-02-20] MEDS: amLODIPine 10 MG TAB PO SCH (08:55)
[2019-02-20] MEDS: ACETAMINOPHEN 500 MG TAB PO SCH ×3 (08:56→21:02)
[2019-02-20] MEDS: SENOKOT S TAB PO SCH ×2 (08:56→21:02)
[2019-02-20] MEDS: PANTOPRAZOLE 40MG TAB (PROTONIX) PO SCH (08:56)
[2019-02-20] MEDS: NICOTINE 14 MG/24 HR TRANSDERMAL TD SCH (09:00)
[2019-02-20 09:44] LABS: BASO % 0.1 % (0.0-1.0); EOS # 0.1 10^3/uL (0.0-0.5); EOS % 1.2 % (0.0-3.0); HEMATOCRIT 32.3 % (36.0-47.0); HEMOGLOBIN 10.7 g/dl (12.0-15.5); LYMPH # 1.4 10^3/uL (1.5-5.0); LYMPH % 17.8 % (24.0-44.0); MEAN CORPUSCULAR HEMOGLOBIN 31.4 pg (27.0-33.0); MEAN CORPUSCULAR HGB CONC 33.1 g/dl (32.0-36.5); MEAN CORPUSCULAR VOLUME 94.7 fl (80.0-96.0); MONO # 0.3 10^3/uL (0.0-0.8); MONO % 3.8 % (0.0-5.0); NEUTROPHILS # 5.8 10^3/uL (1.5-8.5); NEUTROPHILS % 76.1 % (36.0-66.0); PLATELET COUNT, AUTOMATED 297 10^3/uL (150-450); RED BLOOD COUNT 3.41 10^6/uL (4.00-5.40); WHITE BLOOD COUNT 7.7 10^3/uL (4.0-10.0)
[2019-02-20 10:09] LABS: BLOOD UREA NITROGEN 20 MG/DL (7-18); CALCIUM LEVEL 8.7 MG/DL (8.8-10.2); CARBON DIOXIDE LEVEL 24 MEQ/L (21-32); CHLORIDE LEVEL 108 MEQ/L (98-107); GLOMERULAR FILTRATION RATE > 60.0 (>39); GLUCOSE, FASTING 112 MG/DL (70-100); POTASSIUM SERUM 4.2 MEQ/L (3.5-5.1); SODIUM LEVEL 138 MEQ/L (136-145)
[2019-02-20 14:00] VITALS: BP 129/67
[2019-02-20] MEDS: RIVAROXABAN 10 MG TAB (XARELTO) PO SCH (17:54)
[2019-02-20 19:53] VITALS: BP 120/65
[2019-02-21 05:30] VITALS: BP 126/65
[2019-02-21] MEDS: **hydrALAZINE** 50 MG TAB PO SCH (06:00)
[2019-02-21] MEDS: amLODIPine 10 MG TAB PO SCH (08:15)
[2019-02-21] MEDS: DONEPEZIL 5 MG TAB PO SCH (08:15)
[2019-02-21] MEDS: SENOKOT S TAB PO SCH ×2 (08:15→21:10)
[2019-02-21] MEDS: THIAMINE HCL 200 MG/2 ML VIAL (J3411) IM SCH (08:15)
[2019-02-21] MEDS: NICOTINE 14 MG/24 HR TRANSDERMAL TD SCH (08:16)
[2019-02-21] MEDS: ACETAMINOPHEN 500 MG TAB PO SCH ×3 (08:16→21:10)
[2019-02-21] MEDS: PANTOPRAZOLE 40MG TAB (PROTONIX) PO SCH (08:16)
--- NOTE | 2019-02-21 12:37 | IPNPDOC ---
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 REVIEW OF SYSTEMS: The following is a completed review of systems and has been reviewed. Review of systems otherwise unremarkable. PAIN: Patient self reports left hip pain EYES: No recent vision changes EARS, NOSE, & THROAT: No throat pain, or dysphagia, or rhinorrhea CARDIOVASCULAR: Denies chest pain or palpitations PULMONARY: Denies shortness of breath GASTROINTESTINAL: Denies constipation/diarrhea GENITOURINARY: denies dysuria MUSCULOSKELETAL: left hip hemiarthroplasty NEUROLOGICAL:no tremor or seizure activity HEMATOLOGICAL: no easy bruising SKIN: elbow abrasions, hip incision PSYCHIATRIC: +confused All other review of systems found to be negative. PHYSICAL EXAMINATION: VITAL SIGNS: Please see below. GENERAL: Pleasant and cooperative. No acute distress. HEENT: PERRL. Extraocular movements intact. Clear conjunctiva. CARDIOVASCULAR: Regular rate and rhythm. No murmurs, rubs, or gallops LUNGS: Clear to auscultation bilaterally. No wheezes. No rhonchi. ABDOMEN: Soft, nontender, nondistended. Positive bowel sounds. Normal active bowel sounds NEUROLOGICAL: Alert and oriented times to person and place, not time. Cranial nerves II through XII grossly intact. Sensation grossly intact including 1st web space on the left EXTREMITIES: 5/5 strength bilateral upper extremities. 5\5 strength right lower extremity. left ankle DF and EHL 5/5 otherwise limited exam due to surgery. SKIN: left hip incision with sanguinous drainage, bilateral elbow abrasions ASSESSMENT:73-year-old F with past medical history of HTN who presents status post fall with left hip fracture PLAN: 1. Rehab: PT- strengthen, stretch, and maintain ROM bilat LE while maintaining hip precautions, walking with further with RW OT- strengthen, stretch, and maintain ROM bilat LE, teach adaptive techniques for ADL management with hip precautions 2. Ortho: s/p left hip lilibeth-arthroplasty, ortho consulted 3. Neuro: confusion, will monitor, no UTI, c/ daily thiamine for ETOH use -will start Donepezil, will need neurology referral upon discharge 3. Cardiac: HTN continue Amlodipine and hydralazine, medicine consulted to assist in management 4. Resp: COPD, incentive spirometer, duonebs prn, monitor for infection 5. Endo: elevated glucose will check A1C 6. DVT ppx: Xarelto, teds 7. : monitor PVRs 8. GI ppx: Protonix 9. Pain: tylneol, oxycodone and baclofen prn 10. Dispo: 02/28/19 to home vs 14/12 care, unclear at this time Allergies Coded Allergies: oxycodone (Verified Adverse Reaction, Mild, confusion, 02/09/19) confusion Vital Signs Vital Signs Date Time Temp Pulse Resp B/P (MAP) Pulse Ox O2 Delivery O2 Flow Rate FiO2 02/21/19 08:15 70 126/65 02/21/19 05:30 97.8 18 98 Current Medications Current Medications Current Medications Medications (Trade) Dose Ordered Sig/Milady Route PRN Reason Start Time Stop Time Status Last Admin Dose Admin Acetaminophen (Tylenol Tab) 1,000 mg TID PO 02/13/19 21:00 02/21/19 08:16 Amlodipine Besylate (Norvasc) 10 mg DAILY PO 02/14/19 09:00 02/21/19 08:15 Baclofen (Lioresal) 5 mg TID PRN PO SPASMS 02/13/19 17:00 02/17/19 18:13 Bisacodyl (Dulcolax Tab) 5 mg DAILYPRN PRN PO CONSTIPATION 02/13/19 17:00 Donepezil HCl (AriCEPT) 5 mg DAILY PO 02/15/19 09:00 02/21/19 08:15 Donepezil HCl (AriCEPT) 5 mg DAILY PO 02/18/19 09:00 UNV Home Med (Med Rec Complete!) ASDIRECTED XX 02/13/19 17:45 02/13/19 17:45 DC Hydralazine HCl (Apresoline) 50 mg Q8H PO 02/13/19 22:00 02/20/19 13:36 Magnesium Hydroxide (Milk Of Magnesia) 30 ml DAILYPRN PRN PO CONSTIPATION 02/13/19 17:00 Miscellaneous (Unresolved Clarification Entry) SEE LABEL COMMENTS DAILY XX 02/19/19 09:00 02/20/19 09:59 DC Nicotine (Nicoderm Cq 14mg) 1 patch DAILY TD 02/14/19 09:00 Oxycodone HCl (Roxicodone, Oxyir) 5 mg Q4HP PRN PO PAIN 02/13/19 17:00 02/20/19 11:23 Pantoprazole Sodium (Protonix) 40 mg DAILY PO 02/13/19 09:00 02/21/19 08:16 Rivaroxaban (Xarelto) 10 mg DAILY@1800 PO 02/13/19 18:00 02/20/19 17:54 Senna/Docusate Sodium (Senokot S) 1 tab BID PO 02/13/19 21:00 02/21/19 08:15 Thiamine HCl (VITAMIN B1 INJection) 100 mg DAILY IM 02/15/19 09:00 02/21/19 08:15 EDUARDO SANABRIA MD Feb 21, 2019 12:37
--- NOTE | 2019-02-21 13:47 | IPN ---
DATE: 02/21/2019 SUBJECTIVE: The patient denies any pain at the hip, it is well controlled currently and rated as 1 out of 10 at rest. The patient is doing well. She otherwise denies any gait abnormalities and is anxious to be discharged. She otherwise denies any headaches, changes in vision, shortness of breath, chest pain, pressure or tightness, palpitations, lightheadedness, or dizziness. OBJECTIVE: PHYSICAL EXAMINATION: VITAL SIGNS: Temperature 97.8, pulse 70, respiratory rate 18, blood pressure 126/65, 98% on room air. GENERAL: The patient is awake, alert and oriented to person and place. Answering questions appropriately. No respiratory distress. No tripod positioning. LUNGS: Clear to auscultation. No wheezing, rales or rhonchi. HEART: S1, S2. Sinus rhythm. No murmurs, rubs or gallops. ABDOMEN: Soft, nontender, nondistended. Positive bowel sounds. EXTREMITIES: No cyanosis, clubbing or pitting edema. Motor function is 5/5 times four extremities. LABORATORY DATA: 02/20/2019 CBC and metabolic panel have been reviewed. ASSESSMENT AND PLAN: This is a 73-year-old female with a history of chronic obstructive pulmonary disease (COPD), hypertension, tobacco abuse, alcohol use, was found to be hypertensive after a fall at home with a left femoral fracture. Status post left hemiarthroplasty of the hip on 02/11/2019. On Xarelto for deep vein thrombosis (DVT) prophylaxis. Admitted to acute rehabilitation unit for rehabilitation. ACUTE ISSUES: 1. Left hip fracture, status post mechanical fall. Had a left hip hemiarthroplasty on 02/11/2019. Currently in acute rehabilitation. She is on Xarelto for DVT prophylaxis. OxyIR 5 mg every 4 hours as needed for pain, Baclofen 5 mg three times a day as needed and bowel regimen is on Senokot S one tablet twice a day. 2. Hypertension. Currently controlled at 120 to 126 systolic. On hydralazine 40 mg every 8 hours, Norvasc 10 mg daily. 3. Active tobacco use. Has nicotine patch. 4. Dementia. On Aricept. Most likely secondary to chronic alcohol use. On daily thiamine. CT shows diffuse cerebral atrophy. Will need neurology followup as an outpatient. 5. Chronic obstructive pulmonary disease (COPD). On incentive spirometer, DuoNeb as needed. DISPOSITION: Defer to rehabilitation. MTDD
[2019-02-21] MEDS: **hydrALAZINE** 10 MG TAB PO SCH ×2 (13:58→21:10)
[2019-02-21 14:00] VITALS: BP 137/66
[2019-02-21] MEDS: RIVAROXABAN 10 MG TAB (XARELTO) PO SCH (16:43)
[2019-02-21 21:00] VITALS: BP 128/67
[2019-02-22 05:56] VITALS: BP 132/64
[2019-02-22] MEDS: **hydrALAZINE** 10 MG TAB PO SCH ×3 (05:57→22:00)
[2019-02-22] MEDS: SENOKOT S TAB PO SCH ×2 (09:00→20:58)
[2019-02-22] MEDS: NICOTINE 14 MG/24 HR TRANSDERMAL TD SCH (09:00)
[2019-02-22] MEDS: PANTOPRAZOLE 40MG TAB (PROTONIX) PO SCH (09:28)
[2019-02-22] MEDS: amLODIPine 10 MG TAB PO SCH (09:28)
[2019-02-22] MEDS: THIAMINE HCL 200 MG/2 ML VIAL (J3411) IM SCH (09:28)
[2019-02-22] MEDS: ACETAMINOPHEN 500 MG TAB PO SCH ×4 (09:29→21:30)
[2019-02-22] MEDS: DONEPEZIL 5 MG TAB PO SCH (09:29)
[2019-02-22 14:04] VITALS: BP 131/69
--- NOTE | 2019-02-22 15:10 | IPNPDOC ---
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 REVIEW OF SYSTEMS: The following is a completed review of systems and has been reviewed. Review of systems otherwise unremarkable. PAIN: Patient self reports left hip pain EYES: No recent vision changes EARS, NOSE, & THROAT: No throat pain, or dysphagia, or rhinorrhea CARDIOVASCULAR: Denies chest pain or palpitations PULMONARY: Denies shortness of breath GASTROINTESTINAL: Denies constipation/diarrhea GENITOURINARY: denies dysuria MUSCULOSKELETAL: left hip hemiarthroplasty NEUROLOGICAL:no tremor or seizure activity HEMATOLOGICAL: no easy bruising SKIN: elbow abrasions, hip incision PSYCHIATRIC: +confused All other review of systems found to be negative. PHYSICAL EXAMINATION: VITAL SIGNS: Please see below. GENERAL: Pleasant and cooperative. No acute distress. HEENT: PERRL. Extraocular movements intact. Clear conjunctiva. CARDIOVASCULAR: Regular rate and rhythm. No murmurs, rubs, or gallops LUNGS: Clear to auscultation bilaterally. No wheezes. No rhonchi. ABDOMEN: Soft, nontender, nondistended. Positive bowel sounds. Normal active bowel sounds NEUROLOGICAL: Alert and oriented times to person and place, not time. Cranial nerves II through XII grossly intact. Sensation grossly intact including 1st web space on the left EXTREMITIES: 5/5 strength bilateral upper extremities. 5\5 strength right lower extremity. left ankle DF and EHL 5/5 otherwise limited exam due to surgery. SKIN: left hip incision with sanguinous drainage, bilateral elbow abrasions ASSESSMENT:73-year-old F with past medical history of HTN who presents status post fall with left hip fracture PLAN: 1. Rehab: PT- strengthen, stretch, and maintain ROM bilat LE while maintaining hip precautions, walking with further with RW OT- strengthen, stretch, and maintain ROM bilat LE, teach adaptive techniques for ADL management with hip precautions PATIENT SERVICES ASSISTANT ordered for cognitive impairments 2. Ortho: s/p left hip lilibeth-arthroplasty, ortho consulted 3. Neuro: confusion, will monitor, no UTI, c/ daily thiamine for ETOH use -c/u Donepezil, will need neurology referral upon discharge 3. Cardiac: HTN continue Amlodipine and hydralazine, medicine consulted to assist in management 4. Resp: COPD, incentive spirometer, duonebs prn, monitor for infection 5. Endo: elevated glucose will check A1C- wnl 6. DVT ppx: Xarelto, teds 7. : monitor PVRs 8. GI ppx: Protonix 9. Pain: Tylenol, oxycodone and baclofen prn 10. Dispo: 02/28/19 to home vs 14/12 care, unclear at this time Allergies Coded Allergies: oxycodone (Verified Adverse Reaction, Mild, confusion, 02/09/19) confusion Vital Signs Vital Signs Date Time Temp Pulse Resp B/P (MAP) Pulse Ox O2 Delivery O2 Flow Rate FiO2 02/22/19 14:04 97.2 93 18 131/69 (89) 100 Current Medications Current Medications Current Medications Medications (Trade) Dose Ordered Sig/Milady Route PRN Reason Start Time Stop Time Status Last Admin Dose Admin Acetaminophen (Tylenol Tab) 1,000 mg TID PO 02/13/19 21:00 02/22/19 09:29 Amlodipine Besylate (Norvasc) 10 mg DAILY PO 02/14/19 09:00 02/22/19 09:28 Baclofen (Lioresal) 5 mg TID PRN PO SPASMS 02/13/19 17:00 02/17/19 18:13 Bisacodyl (Dulcolax Tab) 5 mg DAILYPRN PRN PO CONSTIPATION 02/13/19 17:00 Donepezil HCl (AriCEPT) 5 mg DAILY PO 02/15/19 09:00 02/22/19 09:29 Donepezil HCl (AriCEPT) 5 mg DAILY PO 02/18/19 09:00 UNV Home Med (Med Rec Complete!) ASDIRECTED XX 02/13/19 17:45 02/13/19 17:45 DC Hydralazine HCl (Apresoline) 40 mg Q8H PO 02/21/19 14:00 02/21/19 13:58 Hydralazine HCl (Apresoline) 50 mg Q8H PO 02/13/19 22:00 02/21/19 12:37 DC 02/20/19 13:36 Magnesium Hydroxide (Milk Of Magnesia) 30 ml DAILYPRN PRN PO CONSTIPATION 02/13/19 17:00 Miscellaneous (Unresolved Clarification Entry) SEE LABEL COMMENTS DAILY XX 02/19/19 09:00 02/20/19 09:59 DC Nicotine (Nicoderm Cq 14mg) 1 patch DAILY TD 02/14/19 09:00 Oxycodone HCl (Roxicodone, Oxyir) 5 mg Q4HP PRN PO PAIN 02/13/19 17:00 02/20/19 11:23 Pantoprazole Sodium (Protonix) 40 mg DAILY PO 02/13/19 09:00 02/22/19 09:28 Rivaroxaban (Xarelto) 10 mg DAILY@1800 PO 02/13/19 18:00 02/21/19 16:43 Senna/Docusate Sodium (Senokot S) 1 tab BID PO 02/13/19 21:00 02/21/19 21:10 Thiamine HCl (VITAMIN B1 INJection) 100 mg DAILY IM 02/15/19 09:00 02/22/19 09:28 EDUARDO SANABRIA MD Feb 22, 2019 15:10
[2019-02-22] MEDS: RIVAROXABAN 10 MG TAB (XARELTO) PO SCH (17:11)
[2019-02-22 20:00] VITALS: BP 126/65
[2019-02-23] MEDS: BACLOFEN 5MG PER 1/2 TABLET PO PRN (04:18)
[2019-02-23] MEDS: **hydrALAZINE** 10 MG TAB PO SCH ×3 (05:51→21:41)
[2019-02-23 06:00] VITALS: BP 177/91
[2019-02-23] MEDS: NICOTINE 14 MG/24 HR TRANSDERMAL TD SCH (09:00)
[2019-02-23] MEDS: THIAMINE HCL 200 MG/2 ML VIAL (J3411) IM SCH (09:43)
[2019-02-23] MEDS: DONEPEZIL 5 MG TAB PO SCH (09:43)
[2019-02-23] MEDS: PANTOPRAZOLE 40MG TAB (PROTONIX) PO SCH (09:43)
[2019-02-23] MEDS: ACETAMINOPHEN 500 MG TAB PO SCH ×3 (09:43→20:48)
[2019-02-23] MEDS: SENOKOT S TAB PO SCH ×2 (09:43→20:48)
[2019-02-23] MEDS: amLODIPine 10 MG TAB PO SCH (09:45)
--- NOTE | 2019-02-23 12:17 | IPN ---
DATE OF SERVICE: 02/23/2019 SUBJECTIVE: The patient denies any chest pain, pressure or tightness, shortness of breath, diaphoresis. Denies any paroxysmal nocturnal dyspnea (PND) or orthopnea. Denies dysuria, urgency, frequency. No fever or chills. Appetite is well. No constipation. No diarrhea. Working well with physical therapy. PHYSICAL EXAMINATION: Vital signs: Temperature 98.3, pulse 91, respiratory rate 16, blood pressure 131/74. Generally, the patient is answering questions appropriately in no respiratory distress, awake, alert, oriented to person, place and time. No facial symmetry. HEENT: No jugular venous distention, thyromegaly, or cervical lymphadenopathy. Lungs are clear to auscultation. No wheezing, rales or rhonchi. Heart: S1, S2. Sinus rhythm. No murmurs, rubs or gallops. Abdomen is soft, nontender, nondistended. Positive bowel sounds. No rebound or guarding. No hepatosplenomegaly. No abdominal bruits. Extremities: No cyanosis or clubbing. The patient does have 1+ edema. Motor function is 5/5 times four extremities. LABORATORY DATA: Have been reviewed. ASSESSMENT AND PLAN: This is a 73-year-old female with tobacco abuse, chronic obstructive pulmonary disease (COPD), alcohol abuse, hypertension, status post fall at home with left femoral fracture. She underwent left hemiarthroplasty on 02/11/2019. On Xarelto for deep vein thrombosis (DVT) prophylaxis. Admitted to rehab. IMPRESSION: 1. Left hip fracture status post mechanical fall. On pain medications. Doing well with acute rehab. Appears to be cooperative. Xarelto for deep venous thrombosis (DVT) prophylaxis. 2. Hypertension. On hydralazine and Norvasc. Currently controlled. 3. Active tobacco use. Nicotine patch, tobacco cessation counseling has been provided. 4. COPD. DuoNebs as needed. Currently on incentive spirometer. 5. Dementia. On Aricept. Will need neurology followup as outpatient. CT shows diffuse cerebral atrophy. DISPOSITION: Defer to rehab attending.
[2019-02-23 14:00] VITALS: BP 121/67
[2019-02-23] MEDS: RIVAROXABAN 10 MG TAB (XARELTO) PO SCH (18:15)
[2019-02-23 20:34] VITALS: BP 123/68
[2019-02-24] MEDS: **hydrALAZINE** 10 MG TAB PO SCH ×3 (06:00→21:08)
[2019-02-24 06:05] VITALS: BP 137/79
[2019-02-24] MEDS: NICOTINE 14 MG/24 HR TRANSDERMAL TD SCH (09:00)
[2019-02-24] MEDS: amLODIPine 10 MG TAB PO SCH (09:39)
[2019-02-24] MEDS: THIAMINE HCL 200 MG/2 ML VIAL (J3411) IM SCH (09:39)
[2019-02-24] MEDS: DONEPEZIL 5 MG TAB PO SCH (09:39)
[2019-02-24] MEDS: PANTOPRAZOLE 40MG TAB (PROTONIX) PO SCH (09:39)
[2019-02-24] MEDS: SENOKOT S TAB PO SCH ×2 (09:39→21:05)
[2019-02-24] MEDS: ACETAMINOPHEN 500 MG TAB PO SCH ×3 (09:40→21:05)
[2019-02-24 14:00] VITALS: BP 131/70
[2019-02-24] MEDS: RIVAROXABAN 10 MG TAB (XARELTO) PO SCH (17:45)
[2019-02-24 20:00] VITALS: BP 127/70
[2019-02-25 04:00] VITALS: BP 115/65
[2019-02-25] MEDS: BACLOFEN 5MG PER 1/2 TABLET PO PRN (04:16)
[2019-02-25] MEDS: **hydrALAZINE** 10 MG TAB PO SCH ×3 (05:41→21:14)
[2019-02-25] MEDS: NICOTINE 14 MG/24 HR TRANSDERMAL TD SCH (09:00)
[2019-02-25] MEDS: PANTOPRAZOLE 40MG TAB (PROTONIX) PO SCH (09:19)
[2019-02-25] MEDS: amLODIPine 10 MG TAB PO SCH (09:20)
[2019-02-25] MEDS: SENOKOT S TAB PO SCH ×2 (09:20→21:14)
[2019-02-25] MEDS: DONEPEZIL 5 MG TAB PO SCH (09:20)
[2019-02-25] MEDS: ACETAMINOPHEN 500 MG TAB PO SCH ×3 (09:20→21:14)
[2019-02-25] MEDS: THIAMINE HCL 200 MG/2 ML VIAL (J3411) IM SCH (09:21)
--- NOTE | 2019-02-25 12:05 | IPN ---
DATE OF SERVICE: 02/25/2019 SUBJECTIVE: Patient has no complaints. Denies any difficulty swallowing. No unusual lymph nodes. Per nursing, patient was noted to have a dark discoloration along the right lateral aspect of the tongue. Patient has not seen a dentist previously and has been a long time smoker for about 10 years about one pack a day cigarette use. She denies any weight loss. Denies any bleeding of the tongue. Denies any choking sensation or dysphagia. Denies any odynophagia as well. PHYSICAL EXAMINATION: Temperature 98.8, pulse 82, respiratory rate 17, blood pressure 148/77, 97% on room air. Generally, awake, alert, oriented. Answers questions appropriately. No respiratory distress. Lateral aspect of the right tongue has a black discoloration. She has no cervical lymphadenopathy or axillary adenopathy, supraclavicular adenopathy or thyromegaly, jugular venous distention. Lungs are clear to auscultation. No wheezing, rales or rhonchi. Air entry equal bilaterally. Heart: S1, S2, sinus rhythm. Abdomen: Soft, nontender, nondistended. Positive bowel sounds. Extremities: No cyanosis, clubbing or any pitting edema. ASSESSMENT AND PLAN: This 73-year-old female with history of tobacco abuse, chronic obstructive pulmonary disease (COPD), alcohol abuse, hypertension, had a fall at home with a left femoral fracture status post left hemiarthroplasty on 02/11 on Xarelto for prophylaxis and admitted to rehabilitation. She was noted to have a dark discoloration along the right lateral tongue. IMPRESSION: 1. Right lateral tongue discoloration in light of prior history of smoking. Patient should see a dentist or oral surgeon as outpatient for possible biopsy. She currently does not have any cervical lymphadenopathy or supraclavicular lymphadenopathy. At this time, no further workup is needed. Tobacco cessation counseling has been provided. 2. Left hip fracture status post mechanical fall. On Xarelto for deep venous thrombosis (DVT) prophylaxis. Defer to rehabilitation for discharge plan. 3. Hypertension controlled on hydralazine and Norvasc. 4. Active tobacco use on nicotine patch and cessation counseling. 5. Chronic obstructive pulmonary disease (COPD) on incentive spirometer, nebulizer as needed. 6. Dementia on Aricept. MTDD
[2019-02-25 14:05] VITALS: BP 119/60
[2019-02-25] MEDS: RIVAROXABAN 10 MG TAB (XARELTO) PO SCH (17:11)
[2019-02-25 19:30] VITALS: BP 140/70
[2019-02-26 04:35] VITALS: BP 159/82
[2019-02-26] MEDS: **hydrALAZINE** 10 MG TAB PO SCH ×3 (05:13→21:22)
[2019-02-26] MEDS: DONEPEZIL 5 MG TAB PO SCH (08:22)
[2019-02-26] MEDS: PANTOPRAZOLE 40MG TAB (PROTONIX) PO SCH (08:22)
[2019-02-26] MEDS: amLODIPine 10 MG TAB PO SCH (08:22)
[2019-02-26] MEDS: THIAMINE HCL 200 MG/2 ML VIAL (J3411) IM SCH (08:22)
[2019-02-26] MEDS: SENOKOT S TAB PO SCH ×2 (08:22→17:33)
[2019-02-26] MEDS: NICOTINE 14 MG/24 HR TRANSDERMAL TD SCH (08:23)
[2019-02-26] MEDS: ACETAMINOPHEN 500 MG TAB PO SCH ×3 (08:23→21:22)
[2019-02-26 14:00] VITALS: BP 128/60
[2019-02-26] MEDS: RIVAROXABAN 10 MG TAB (XARELTO) PO SCH (17:33)
[2019-02-26 19:54] VITALS: BP 155/86
[2019-02-27 05:31] VITALS: BP 138/76
[2019-02-27] MEDS: **hydrALAZINE** 10 MG TAB PO SCH ×3 (05:32→21:19)
[2019-02-27] MEDS: THIAMINE HCL 200 MG/2 ML VIAL (J3411) IM SCH (08:17)
[2019-02-27] MEDS: DONEPEZIL 5 MG TAB PO SCH (08:17)
[2019-02-27] MEDS: PANTOPRAZOLE 40MG TAB (PROTONIX) PO SCH (08:17)
[2019-02-27] MEDS: ACETAMINOPHEN 500 MG TAB PO SCH ×3 (08:18→21:17)
[2019-02-27] MEDS: SENOKOT S TAB PO SCH ×2 (08:18→21:17)
[2019-02-27] MEDS: amLODIPine 10 MG TAB PO SCH (08:18)
[2019-02-27] MEDS: NICOTINE 14 MG/24 HR TRANSDERMAL TD SCH (08:18)
[2019-02-27 10:37] LABS: BASO % 0.3 % (0.0-1.0); EOS # 0.1 10^3/uL (0.0-0.5); EOS % 1.2 % (0.0-3.0); HEMATOCRIT 30.4 % (36.0-47.0); HEMOGLOBIN 9.8 g/dl (12.0-15.5); LYMPH # 1.2 10^3/uL (1.5-5.0); LYMPH % 15.9 % (24.0-44.0); MEAN CORPUSCULAR HGB CONC 32.2 g/dl (32.0-36.5); MEAN CORPUSCULAR VOLUME 96.2 fl (80.0-96.0); MONO # 0.5 10^3/uL (0.0-0.8); MONO % 6.1 % (0.0-5.0); NEUTROPHILS # 5.6 10^3/uL (1.5-8.5); NEUTROPHILS % 75.8 % (36.0-66.0); PLATELET COUNT, AUTOMATED 351 10^3/uL (150-450); RED BLOOD COUNT 3.16 10^6/uL (4.00-5.40); WHITE BLOOD COUNT 7.4 10^3/uL (4.0-10.0)
[2019-02-27 11:08] LABS: BLOOD UREA NITROGEN 19 MG/DL (7-18); CALCIUM LEVEL 8.6 MG/DL (8.8-10.2); CARBON DIOXIDE LEVEL 26 MEQ/L (21-32); CHLORIDE LEVEL 107 MEQ/L (98-107); CREATININE FOR GFR 0.66 MG/DL (0.55-1.30); GLOMERULAR FILTRATION RATE > 60.0 (>39); GLUCOSE, FASTING 126 MG/DL (70-100); POTASSIUM SERUM 3.8 MEQ/L (3.5-5.1); SODIUM LEVEL 140 MEQ/L (136-145)
[2019-02-27 14:00] VITALS: BP 142/74
[2019-02-27] MEDS: RIVAROXABAN 10 MG TAB (XARELTO) PO SCH (16:49)
--- NOTE | 2019-02-27 17:45 | IPNPDOC ---
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 REVIEW OF SYSTEMS: The following is a completed review of systems and has been reviewed. Review of systems otherwise unremarkable. PAIN: Patient self reports left hip pain EYES: No recent vision changes EARS, NOSE, & THROAT: No throat pain, or dysphagia, or rhinorrhea CARDIOVASCULAR: Denies chest pain or palpitations PULMONARY: Denies shortness of breath GASTROINTESTINAL: Denies constipation/diarrhea GENITOURINARY: denies dysuria MUSCULOSKELETAL: left hip hemiarthroplasty NEUROLOGICAL:no tremor or seizure activity HEMATOLOGICAL: no easy bruising SKIN: elbow abrasions, hip incision PSYCHIATRIC: +confused All other review of systems found to be negative. PHYSICAL EXAMINATION: VITAL SIGNS: Please see below. GENERAL: Pleasant and cooperative. No acute distress. HEENT: PERRL. Extraocular movements intact. Clear conjunctiva. CARDIOVASCULAR: Regular rate and rhythm. No murmurs, rubs, or gallops LUNGS: Clear to auscultation bilaterally. No wheezes. No rhonchi. ABDOMEN: Soft, nontender, nondistended. Positive bowel sounds. Normal active bowel sounds NEUROLOGICAL: Alert and oriented times to person and place, not time. Cranial nerves II through XII grossly intact. Sensation grossly intact including 1st web space on the left EXTREMITIES: 5/5 strength bilateral upper extremities. 5\5 strength right lower extremity. left ankle DF and EHL 5/5 otherwise limited exam due to surgery. SKIN: left hip incision with sanguinous drainage, bilateral elbow abrasions ASSESSMENT:73-year-old F with past medical history of HTN who presents status post fall with left hip fracture PLAN: 1. Rehab: PT- strengthen, stretch, and maintain ROM bilat LE while maintaining hip precautions, walking with further with RW OT- strengthen, stretch, and maintain ROM bilat LE, teach adaptive techniques for ADL management with hip precautions, Mod-I with OT OIL PIPELINE DISPATCHER ordered for cognitive impairments 2. Ortho: s/p left hip lilibeth-arthroplasty, ortho consulted 3. Neuro: confusion, will monitor, no UTI, c/ daily thiamine for ETOH use -c/u Donepezil, will need neurology referral upon discharge 3. Cardiac: HTN continue Amlodipine and hydralazine, medicine consulted to assist in management 4. Resp: COPD, incentive spirometer, duonebs prn, monitor for infection 5. Endo: elevated glucose will check A1C- wnl 6. DVT ppx: Xarelto, teds 7. : monitor PVRs 8. GI ppx: Protonix 9. Pain: Tylenol, oxycodone and baclofen prn 10. Dispo: 02/28/19 to home vs 14/12 care, unclear at this time Allergies Coded Allergies: oxycodone (Verified Adverse Reaction, Mild, confusion, 02/09/19) confusion Vital Signs Vital Signs Date Time Temp Pulse Resp B/P (MAP) Pulse Ox O2 Delivery O2 Flow Rate FiO2 02/27/19 14:30 142/74 02/27/19 14:00 97.8 94 18 98 Laboratory Data CBC/BMP Laboratory Tests 02/27/19 10:21 Red Blood Count 3.16 L, Mean Corpuscular Volume 96.2 H, Mean Corpuscular Hemoglobin 31.0, Mean Corpuscular Hemoglobin Concent 32.2, Red Cell Distribution Width 14.0, Neutrophils (%) (Auto) 75.8 H, Lymphocytes (%) (Auto) 15.9 L, Monocytes (%) (Auto) 6.1 H, Eosinophils (%) (Auto) 1.2, Basophils (%) (Auto) 0.3, Neutrophils # (Auto) 5.6, Lymphocytes # (Auto) 1.2 L, Monocytes # (Auto) 0.5, Eosinophils # (Auto) 0.1, Basophils # (Auto) 0.0, Calcium Level 8.6 L Labs 24H Laboratory Tests 2 02/27/19 10:21: Immature Granulocyte % (Auto) 0.7, White Blood Count 7.4, Red Blood Count 3.16L, Hemoglobin 9.8L, Hematocrit 30.4L, Mean Corpuscular Volume 96.2H, Mean Corpuscul ar Hemoglobin 31.0, Mean Corpuscular Hemoglobin Concent 32.2, Red Cell Distribution Width 14.0, Platelet Count 351, Neutrophils (%) (Auto) 75.8H, Lymphocytes (%) (Auto) 15.9L, Monocytes (%) (Auto) 6.1H, Eosinophils (%) (Auto) 1.2, Basophils (%) (Auto) 0.3, Neutrophils # (Auto) 5.6, Lymphocytes # (Auto) 1.2L, Monocytes # (Auto) 0.5, Eosinophils # (Auto) 0.1, Basophils # (Auto) 0.0, Nucleated Red Blood Cells % (auto) 0.0, Anion Gap 7L, Glomerular Filtration Rate > 60.0, Blood Urea Nitrogen 19H, Creatinine 0.66, Sodium Level 140, Potassium Level 3.8, Chloride Level 107, Carbon Dioxide Level 26, Calcium Level 8.6L Current Medications Current Medications Current Medications Medications (Trade) Dose Ordered Sig/Milady Route PRN Reason Start Time Stop Time Status Last Admin Dose Admin Acetaminophen (Tylenol Tab) 1,000 mg TID PO 02/13/19 21:00 02/27/19 16:48 Amlodipine Besylate (Norvasc) 10 mg DAILY PO 02/14/19 09:00 02/27/19 08:18 Baclofen (Lioresal) 5 mg TID PRN PO SPASMS 02/13/19 17:00 02/25/19 04:16 Bisacodyl (Dulcolax Tab) 5 mg DAILYPRN PRN PO CONSTIPATION 02/13/19 17:00 Donepezil HCl (AriCEPT) 5 mg DAILY PO 02/15/19 09:00 02/27/19 08:17 Donepezil HCl (AriCEPT) 5 mg DAILY PO 02/18/19 09:00 UNV Home Med (Med Rec Complete!) ASDIRECTED XX 02/13/19 17:45 02/13/19 17:45 DC Hydralazine HCl (Apresoline) 40 mg Q8H PO 02/21/19 14:00 02/27/19 14:30 Hydralazine HCl (Apresoline) 50 mg Q8H PO 02/13/19 22:00 02/21/19 12:37 DC 02/20/19 13:36 Magnesium Hydroxide (Milk Of Magnesia) 30 ml DAILYPRN PRN PO CONSTIPATION 02/13/19 17:00 Miscellaneous (Unresolved Clarification Entry) SEE LABEL COMMENTS DAILY XX 02/19/19 09:00 02/20/19 09:59 DC Nicotine (Nicoderm Cq 14mg) 1 patch DAILY TD 02/14/19 09:00 Oxycodone HCl (Roxicodone, Oxyir) 5 mg Q4HP PRN PO PAIN 02/13/19 17:00 02/20/19 11:23 Pantoprazole Sodium (Protonix) 40 mg DAILY PO 02/13/19 09:00 02/27/19 08:17 Rivaroxaban (Xarelto) 10 mg DAILY@1800 PO 02/13/19 18:00 02/27/19 16:49 Senna/Docusate Sodium (Senokot S) 1 tab BID PO 02/13/19 21:00 02/26/19 08:22 Thiamine HCl (VITAMIN B1 INJection) 100 mg DAILY IM 02/15/19 09:00 02/27/19 08:17 EDUARDO SANABRIA MD Feb 27, 2019 17:45
--- NOTE | 2019-02-27 17:46 | IPNPDOC ---
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 REVIEW OF SYSTEMS: The following is a completed review of systems and has been reviewed. Review of systems otherwise unremarkable. PAIN: Patient self reports left hip pain EYES: No recent vision changes EARS, NOSE, & THROAT: No throat pain, or dysphagia, or rhinorrhea CARDIOVASCULAR: Denies chest pain or palpitations PULMONARY: Denies shortness of breath GASTROINTESTINAL: Denies constipation/diarrhea GENITOURINARY: denies dysuria MUSCULOSKELETAL: left hip hemiarthroplasty NEUROLOGICAL:no tremor or seizure activity HEMATOLOGICAL: no easy bruising SKIN: elbow abrasions, hip incision PSYCHIATRIC: +confused All other review of systems found to be negative. PHYSICAL EXAMINATION: VITAL SIGNS: Please see below. GENERAL: Pleasant and cooperative. No acute distress. HEENT: PERRL. Extraocular movements intact. Clear conjunctiva. CARDIOVASCULAR: Regular rate and rhythm. No murmurs, rubs, or gallops LUNGS: Clear to auscultation bilaterally. No wheezes. No rhonchi. ABDOMEN: Soft, nontender, nondistended. Positive bowel sounds. Normal active b owel sounds NEUROLOGICAL: Alert and oriented times to person and place, not time. Cranial nerves II through XII grossly intact. Sensation grossly intact including 1st web space on the left EXTREMITIES: 5/5 strength bilateral upper extremities. 5\5 strength right lower extremity. left ankle DF and EHL 5/5 otherwise limited exam due to surgery. SKIN: left hip incision with sanguinous drainage, bilateral elbow abrasions ASSESSMENT:73-year-old F with past medical history of HTN who presents status post fall with left hip fracture PLAN: 1. Rehab: PT- strengthen, stretch, and maintain ROM bilat LE while maintaining hip precautions, walking with further with RW- room privileges OT- strengthen, stretch, and maintain ROM bilat LE, teach adaptive techniques for ADL management with hip precautions, Mod-I with OT- room privileges ONLINE FACILITATOR ordered for cognitive impairments 2. Ortho: s/p left hip lilibeth-arthroplasty, ortho consulted 3. Neuro: confusion, will monitor, no UTI, c/ daily thiamine for ETOH use -c/u Donepezil, will need neurology referral upon discharge 3. Cardiac: HTN continue Amlodipine and hydralazine, medicine consulted to assist in management 4. Resp: COPD, incentive spirometer, duonebs prn, monitor for infection 5. Endo: elevated glucose will check A1C- wnl 6. DVT ppx: Xarelzoya, teds 7. : monitor PVRs 8. GI ppx: Protonix 9. Pain: Tylenol, oxycodone and baclofen prn 10. Dispo: 02/28/19 to home vs 14/12 care, unclear at this time, patient needs grab bars installed after which it will be safe for her to return home Allergies Coded Allergies: oxycodone (Verified Adverse Reaction, Mild, confusion, 02/09/19) confusion Vital Signs Vital Signs Date Time Temp Pulse Resp B/P (MAP) Pulse Ox O2 Delivery O2 Flow Rate FiO2 02/27/19 14:30 142/74 02/27/19 14:00 97.8 94 18 98 Laboratory Data CBC/BMP Laboratory Tests 02/27/19 10:21 Red Blood Count 3.16 L, Mean Corpuscular Volume 96.2 H, Mean Corpuscular Hemoglobin 31.0, Mean Corpuscular Hemoglobin Concent 32.2, Red Cell Distribution Width 14.0, Neutrophils (%) (Auto) 75.8 H, Lymphocytes (%) (Auto) 15.9 L, Monocytes (%) (Auto) 6.1 H, Eosinophils (%) (Auto) 1.2, Basophils (%) (Auto) 0.3 , Neutrophils # (Auto) 5.6, Lymphocytes # (Auto) 1.2 L, Monocytes # (Auto) 0.5, Eosinophils # (Auto) 0.1, Basophils # (Auto) 0.0, Calcium Level 8.6 L Labs 24H Laboratory Tests 2 02/27/19 10:21: Immature Granulocyte % (Auto) 0.7, White Blood Count 7.4, Red Blood Count 3.16L, Hemoglobin 9.8L, Hematocrit 30.4L, Mean Corpuscular Volume 96.2H, Mean Corpuscular Hemoglobin 31.0, Mean Corpuscular Hemoglobin Concent 32.2, Red Cell Distribution Width 14.0, Platelet Count 351, Neutrophils (%) (Auto) 75.8H, Lymphocytes (%) (Auto) 15.9L, Monocytes (%) (Auto) 6.1H, Eosinophils (%) (Auto) 1.2, Basophils (%) (Auto) 0.3, Neutrophils # (Auto) 5.6, Lymphocytes # (Auto) 1.2L, Monocytes # (Auto) 0.5, Eosinophils # (Auto) 0.1, Basophils # (Auto) 0.0, Nucleated Red Blood Cells % (auto) 0.0, Anion Gap 7L, Glomerular Filtration Rate > 60.0, Blood Urea Nitrogen 19H, Creatinine 0.66, Sodium Level 140, Potassium Level 3.8, Chloride Level 107, Carbon Dioxide Level 26, Calcium Level 8.6L Current Medications Current Medications Current Medications Medications (Trade) Dose Ordered Sig/Milady Route PRN Reason Start Time Stop Time Status Last Admin Dose Admin Acetaminophen (Tylenol Tab) 1,000 mg TID PO 02/13/19 21:00 02/27/19 16:48 Amlodipine Besylate (Norvasc) 10 mg DAILY PO 02/14/19 09:00 02/27/19 08:18 Baclofen (Lioresal) 5 mg TID PRN PO SPASMS 02/13/19 17:00 02/25/19 04:16 Bisacodyl (Dulcolax Tab) 5 mg DAILYPRN PRN PO CONSTIPATION 02/13/19 17:00 Donepezil HCl (AriCEPT) 5 mg DAILY PO 02/15/19 09:00 02/27/19 08:17 Donepezil HCl (AriCEPT) 5 mg DAILY PO 02/18/19 09:00 UNV Home Med (Med Rec Complete!) ASDIRECTED XX 02/13/19 17:45 02/13/19 17:45 DC Hydralazine HCl (Apresoline) 40 mg Q8H PO 02/21/19 14:00 02/27/19 14:30 Hydralazine HCl (Apresoline) 50 mg Q8H PO 02/13/19 22:00 02/21/19 12:37 DC 02/20/19 13:36 Magnesium Hydroxide (Milk Of Magnesia) 30 ml DAILYPRN PRN PO CONSTIPATION 02/13/19 17:00 Miscellaneous (Unresolved Clarification Entry) SEE LABEL COMMENTS DAILY XX 02/19/19 09:00 02/20/19 09:59 DC Nicotine (Nicoderm Cq 14mg) 1 patch DAILY TD 02/14/19 09:00 Oxycodone HCl (Roxicodone, Oxyir) 5 mg Q4HP PRN PO PAIN 02/13/19 17:00 02/20/19 11:23 Pantoprazole Sodium (Protonix) 40 mg DAILY PO 02/13/19 09:00 02/27/19 08:17 Rivaroxaban (Xarelto) 10 mg DAILY@1800 PO 02/13/19 18:00 02/27/19 16:49 Senna/Docusate Sodium (Senokot S) 1 tab BID PO 02/13/19 21:00 02/26/19 08:22 Thiamine HCl (VITAMIN B1 INJection) 100 mg DAILY IM 02/15/19 09:00 02/27/19 08:17 EDUARDO SANABRIA MD Feb 27, 2019 17:46
[2019-02-27 20:06] VITALS: BP 128/65
[2019-02-28] MEDS: **hydrALAZINE** 10 MG TAB PO SCH ×3 (06:08→21:01)
[2019-02-28 06:31] VITALS: BP 150/90
[2019-02-28] MEDS ORDERED: XARE10TA PO (07:56)
[2019-02-28] MEDS: SENOKOT S TAB PO SCH ×2 (07:57→21:00)
[2019-02-28] MEDS: amLODIPine 10 MG TAB PO SCH (07:58)
[2019-02-28] MEDS: DONEPEZIL 5 MG TAB PO SCH (07:58)
[2019-02-28] MEDS: ACETAMINOPHEN 500 MG TAB PO SCH ×3 (07:58→21:00)
[2019-02-28] MEDS: PANTOPRAZOLE 40MG TAB (PROTONIX) PO SCH (07:58)
[2019-02-28] MEDS: THIAMINE HCL 200 MG/2 ML VIAL (J3411) IM SCH (07:58)
[2019-02-28] MEDS: NICOTINE 14 MG/24 HR TRANSDERMAL TD SCH ×3 (07:59→09:00)
--- NOTE | 2019-02-28 12:28 | IPNPDOC ---
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 REVIEW OF SYSTEMS: The following is a completed review of systems and has been reviewed. Review of systems otherwise unremarkable. PAIN: Patient self reports left hip pain EYES: No recent vision changes EARS, NOSE, & THROAT: No throat pain, or dysphagia, or rhinorrhea CARDIOVASCULAR: Denies chest pain or palpitations PULMONARY: Denies shortness of breath GASTROINTESTINAL: Denies constipation/diarrhea GENITOURINARY: denies dysuria MUSCULOSKELETAL: left hip hemiarthroplasty NEUROLOGICAL:no tremor or seizure activity HEMATOLOGICAL: no easy bruising SKIN: elbow abrasions, hip incision PSYCHIATRIC: +confused All other review of systems found to be negative. PHYSICAL EXAMINATION: VITAL SIGNS: Please see below. GENERAL: Pleasant and cooperative. No acute distress. HEENT: PERRL. Extraocular movements intact. Clear conjunctiva. CARDIOVASCULAR: Regular rate and rhythm. No murmurs, rubs, or gallops LUNGS: Clear to auscultation bilaterally. No wheezes. No rhonchi. ABDOMEN: Soft, nontender, nondistended. Positive bowel sounds. Normal active bowel sounds NEUROLOGICAL: Alert and oriented times to person and place, not time. Cranial n erves II through XII grossly intact. Sensation grossly intact including 1st web space on the left EXTREMITIES: 5/5 strength bilateral upper extremities. 5\5 strength right lower extremity. left ankle DF and EHL 5/5 otherwise limited exam due to surgery. SKIN: left hip incision with sanguinous drainage, bilateral elbow abrasions ASSESSMENT:73-year-old F with past medical history of HTN who presents status post fall with left hip fracture PLAN: 1. 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 Ortho: s/p left hip lilibeth-arthroplasty, ortho consulted 3. Neuro: confusion, will monitor, no UTI, c/ daily thiamine for ETOH use -c/u Donepezil, will need neurology referral upon discharge 3. Cardiac: HTN continue Amlodipine and hydralazine, medicine consulted to assist in management 4. Resp: COPD, incentive spirometer, duonebs prn, monitor for infection 5. Endo: elevated glucose will check A1C- wnl 6. DVT ppx: Xarelto, teds 7. : monitor PVRs 8. GI ppx: Protonix 9. Pain: Tylenol, oxycodone and baclofen prn 10. Dispo: 02/28/19 to home vs 14/12 care, unclear at this time, patient needs grab bars installed after which it will be safe for her to return home Allergies Coded Allergies: oxycodone (Verified Adverse Reaction, Mild, confusion, 02/09/19) confusion Vital Signs Vital Signs Date Time Temp Pulse Resp B/P (MAP) Pulse Ox O2 Delivery O2 Flow Rate FiO2 02/28/19 07:58 91 120/63 02/28/19 06:31 97.5 18 96 Current Medications Current Medications Current Medications Medications (Trade) Dose Ordered Sig/Milady Route PRN Reason Start Time Stop Time Status Last Admin Dose Admin Acetaminophen (Tylenol Tab) 1,000 mg TID PO 02/13/19 21:00 02/28/19 07:58 Amlodipine Besylate (Norvasc) 10 mg DAILY PO 02/14/19 09:00 02/28/19 07:58 Baclofen (Lioresal) 5 mg TID PRN PO SPASMS 02/13/19 17:00 02/25/19 04:16 Bisacodyl (Dulcolax Tab) 5 mg DAILYPRN PRN PO CONSTIPATION 02/13/19 17:00 Donepezil HCl (AriCEPT) 5 mg DAILY PO 02/15/19 09:00 02/28/19 07:58 Donepezil HCl (AriCEPT) 5 mg DAILY PO 02/18/19 09:00 UNV Home Med (Med Rec Complete!) ASDIRECTED XX 02/13/19 17:45 02/13/19 17:45 DC Hydralazine HCl (Apresoline) 40 mg Q8H PO 02/21/19 14:00 02/28/19 06:08 Hydralazine HCl (Apresoline) 50 mg Q8H PO 02/13/19 22:00 02/21/19 12:37 DC 02/20/19 13:36 Magnesium Hydroxide (Milk Of Magnesia) 30 ml DAILYPRN PRN PO CONSTIPATION 02/13/19 17:00 Miscellaneous (Unresolved Clarification Entry) SEE LABEL COMMENTS DAILY XX 02/19/19 09:00 02/20/19 09:59 DC Nicotine (Nicoderm Cq 14mg) 1 patch DAILY TD 02/14/19 09:00 Oxycodone HCl (Roxicodone, Oxyir) 5 mg Q4HP PRN PO PAIN 02/13/19 17:00 02/20/19 11:23 Pantoprazole Sodium (Protonix) 40 mg DAILY PO 02/13/19 09:00 02/28/19 07:58 Rivaroxaban (Xarelto) 10 mg DAILY@1800 PO 02/13/19 18:00 02/27/19 16:49 Senna/Docusate Sodium (Senokot S) 1 tab BID PO 02/13/19 21:00 02/28/19 07:57 Thiamine HCl (VITAMIN B1 INJection) 100 mg DAILY IM 02/15/19 09:00 02/28/19 07:58 EDUARDO SANABRIA MD Feb 28, 2019 12:28
[2019-02-28 14:00] VITALS: BP 159/84
[2019-02-28] MEDS: RIVAROXABAN 10 MG TAB (XARELTO) PO SCH (16:56)
[2019-02-28 21:00] VITALS: BP 154/76
--- NOTE | 2019-02-28 21:15 | IPNPDOC ---
Subjective Date Seen The patient was seen on 02/28/19. Subjective Chief Complaint/HPI 73-year-old female with history of tobacco abuse,chronic obstructive pulmonary disease (COPD), alcohol abuse, hypertension, had a fall at home with a left femoral fracture status post left hemiarthroplasty on02/11 on Xarelto for prophylaxis and admitted to rehabilitation. She was noted to have a dark discoloration along the right lateral tongue. General: Denies: ROS Unobtainable, Chills, Night Sweats, Fatigue, Malaise, Normal Appetite, Other Symptoms Constitutional: Denies: Chills, Fever, Malaise, Night Sweats, Weakness, Fatigue, Weight Loss, Lethargy, Other Eyes: Denies: Pain, Vision change, Conjunctivae inflammation, Eyelid inflammation, Redness, Other ENT: Denies: Head Aches, Ear Pain, Dysphagia Skin: Denies: Rash, Lesions, Jaundice, Bruising, Itching, Dry, Breakdown, Nail Changes, Other Pulmonary: Reports: Cough Cardiovascular: Denies: Chest Pain, Palpitations, Orthopnea, Paroxysmal Noc. Dyspnea, Edema, Lt Headedness, Other Symptoms Gastrointestinal: Denies: Nausea, Vomiting, Abdominal Pain, Diarrhea, Constipation, Melena, Hematochezia, Other Symptoms Genitourinary: Denies: Dysuria, Frequency, Incontinence, Hematuria, Retention, Other Symptoms Hematologic: Denies: Bruising, Bleeding Excessively Endocrine: Denies: Polydipsia, Polyphagia, Polyuria, Heat Intolerance, Cold Intolerance, Other Endocrine Sx Neurological: Denies: Weakness, Numbness, Incoordination, Change in speech, Confusion, Seizures, Other Symptoms Psych: Denies: Mood Normal, Anxiety, Depression, Memory Issues, Thoughts of Self Harm, Anger, Thoughts of Harming Other, Other Psych Objective Physical Examination General Exam: Positive: Alert, Cooperative, No Acute Distress Eye Exam: Positive: PERRLA, Conjunctiva & lids normal, EOMI; Negative: Sclera icteric ENT Exam: Positive: Atraumatic, Mucous membr. moist/pink, Pharynx Normal Neck Exam: Positive: Supple; Negative: JVD, thyromegaly Chest Exam: Positive: Clear to auscultation, Normal air movement Heart Exam: Positive: Rate Normal, Regular Rhythm, Normal S1, Normal S2; Negative: Murmurs, Rubs Abdomen Exam: Positive: Normal bowel sounds, Soft; Negative: Tenderness, Hepatospenomegaly Extremity Exam: Negative: Clubbing, Cyanosis, Edema Skin Exam: Positive: Nl turgor and temperature; Negative: Breakdown, Lesion Neuro Exam: Positive: Normal Gait, Normal Speech, Strength at 5/5 X4 ext, Normal Tone Psych Exam: Positive: Mental status NL, Mood NL, Oriented x 3, Other (oriented x 2) Assessment /Plan Assessment 73-year-old female with history of tobacco abuse,chronic obstructive pulmonary disease (COPD), alcohol abuse, hypertension, had a fall at home with a left femoral fracture status post left hemiarthroplasty on 02/11 on Xarelto for prophylaxis and admitted to rehabilitation. Plan Right lateral tongue discoloration in light of prior history of smoking. Patient should see a dentist or oral surgeon as outpatient for possible biopsy. She currently does not have any cervical lymphadenopathy or supraclavicular lymphadenopathy. At this time, no further workup is needed. Tobacco cessation counseling has been provided. Fractured Hip secondary to Fall- Acute Left hip fracture status post mechanical fall. On Xarelto for deep venous thrombosis (DVT) prophylaxis. Continue PT/OT Continue to follow rehabilitation plan. Essential Hypertension controlled-Chronic Continue taking- hydralazine , norvasc. Nicotine dependence-Chronic Encourage use of Nicotine patch and smoking cessation Chronic obstructive pulmonary disease (COPD) -Chronic Continue using - incentive spirometer, Duoneb nebulizer treatment as needed. Dementia-Chronic Continue taking Aricept. Plan/VTE VTE Prophylaxis Ordered?: Yes Plan IVF: Continue Diet: Continue Current Activity: Continue Current Therapy: PT, OT Diagnostics: Check Labs Anticipated Discharge: Sub Acute Rehab VS, I&O, 24H, Aneudy Vital Signs/I&O Vital Signs Date Time Temp Pulse Resp B/P (MAP) Pulse Ox O2 Delivery O2 Flow Rate FiO2 02/28/19 21:01 154/76 02/28/19 14:00 96.7 90 17 99 I&O- Last 24 Hours up to 6 AM 02/28/19 06:00 Intake Total 810 ml Balance 810 ml REMI JOHNSON Feb 28, 2019 21:15
[2019-03-01] MEDS: **hydrALAZINE** 10 MG TAB PO SCH ×3 (06:00→20:56)
[2019-03-01 06:43] VITALS: BP 134/66
[2019-03-01] MEDS: PANTOPRAZOLE 40MG TAB (PROTONIX) PO SCH (08:05)
[2019-03-01] MEDS: SENOKOT S TAB PO SCH ×2 (08:05→20:59)
[2019-03-01] MEDS: DONEPEZIL 5 MG TAB PO SCH (08:05)
[2019-03-01] MEDS: amLODIPine 10 MG TAB PO SCH (08:05)
[2019-03-01] MEDS: THIAMINE HCL 200 MG/2 ML VIAL (J3411) IM SCH (08:06)
[2019-03-01] MEDS: NICOTINE 14 MG/24 HR TRANSDERMAL TD SCH (08:06)
[2019-03-01] MEDS: ACETAMINOPHEN 500 MG TAB PO SCH ×3 (08:06→20:59)
[2019-03-01] MEDS: oxyCODONE 5MG TAB PO PRN (09:52)
[2019-03-01 14:00] VITALS: BP 137/76
--- NOTE | 2019-03-01 17:08 | IPNPDOC ---
PM&R Progress Note Automation Manager Progress Note DATE OF ADMISSION: Feb 13, 2019 at 17:15 INPATIENT REHABILITATION ADMISSION DAY: # SUBJECTIVE: Patient is a -year-old with . ALLERGIES: See Below MEDICATIONS: Reviewed, see below. OBJECTIVE: VITAL SIGNS: Please see below. PHYSICAL EXAMINATION: GENERAL: [Cachectic, well developed, sitting up in bed, no acute distress]. HEENT: [Normocephalic, atraumatic]. [No facial droop]. [Poor dentition, missing teeth. PERRL, EOMI]. CARDIOVASCULAR: [S1, S2, irregular rate]. [No lower limb edema or calf tenderness]. LUNGS: [Decreased breath sounds, coarse throughout]. ABDOMEN: [Soft, nontender, nondistended. Normoactive bowel sounds throughout]. MUSCULOSKELETAL: MMT: /5 strength proximally bilateral shoulder abduction, forward flexion and bilateral hip flexion. /5 strength bilateral elbow flexion, knee flexion, /5 bilateral elbow extension and knee extension. 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 NEUROLOGICAL: [Alert and oriented times three]. [Answers all question appropriately]. SKIN: . LABORATORY DATA: Reviewed. Please see below. MICROBIOLOGY: Please see below. IMAGING: ASSESSMENT AND PLAN: 1. . 2. . 3. . TIME SPENT: Chart Review, examination and documentation minutes. Allergies Coded Allergies: oxycodone (Verified Adverse Reaction, Mild, confusion, 02/09/19) confusion Vital Signs Vital Signs Date Time Temp Pulse Resp B/P (MAP) Pulse Ox O2 Delivery O2 Flow Rate FiO2 03/01/19 14:00 97.6 87 18 137/76 (96) 98 Current Medications Current Medications Current Medications Medications (Trade) Dose Ordered Sig/Milady Route PRN Reason Start Time Stop Time Status Last Admin Dose Admin Acetaminophen (Tylenol Tab) 1,000 mg TID PO 02/13/19 21:00 03/01/19 15:18 Amlodipine Besylate (Norvasc) 10 mg DAILY PO 02/14/19 09:00 03/01/19 08:05 Baclofen (Lioresal) 5 mg TID PRN PO SPASMS 02/13/19 17:00 02/25/19 04:16 Bisacodyl (Dulcolax Tab) 5 mg DAILYPRN PRN PO CONSTIPATION 02/13/19 17:00 Donepezil HCl (AriCEPT) 5 mg DAILY PO 02/15/19 09:00 03/01/19 08:05 Donepezil HCl (AriCEPT) 5 mg DAILY PO 02/18/19 09:00 UNV Home Med (Med Rec Complete!) ASDIRECTED XX 02/13/19 17:45 02/13/19 17:45 DC Hydralazine HCl (Apresoline) 40 mg Q8H PO 02/21/19 14:00 02/28/19 21:01 Hydralazine HCl (Apresoline) 50 mg Q8H PO 02/13/19 22:00 02/21/19 12:37 DC 02/20/19 13:36 Magnesium Hydroxide (Milk Of Magnesia) 30 ml DAILYPRN PRN PO CONSTIPATION 02/13/19 17:00 Miscellaneous (Unresolved Clarification Entry) SEE LABEL COMMENTS DAILY XX 02/19/19 09:00 02/20/19 09:59 DC Nicotine (Nicoderm Cq 14mg) 1 patch DAILY TD 02/14/19 09:00 Oxycodone HCl (Roxicodone, Oxyir) 5 mg Q4HP PRN PO PAIN 02/13/19 17:00 03/01/19 09:52 Pantoprazole Sodium (Protonix) 40 mg DAILY PO 02/13/19 09:00 03/01/19 08:05 Rivaroxaban (Xarelto) 10 mg DAILY@1800 PO 02/13/19 18:00 02/28/19 16:56 Senna/Docusate Sodium (Senokot S) 1 tab BID PO 02/13/19 21:00 03/01/19 08:05 Thiamine HCl (VITAMIN B1 INJection) 100 mg DAILY IM 02/15/19 09:00 03/01/19 08:06 EDUARDO SANABRIA MD Mar 01, 2019 17:08
[2019-03-01] MEDS: RIVAROXABAN 10 MG TAB (XARELTO) PO SCH (17:13)
[2019-03-01 19:35] VITALS: BP 116/64
[2019-03-02 05:50] VITALS: BP 138/62
[2019-03-02] MEDS: **hydrALAZINE** 10 MG TAB PO SCH (06:00)
[2019-03-02] MEDS: NICOTINE 14 MG/24 HR TRANSDERMAL TD SCH (08:03)
[2019-03-02 08:04] VITALS: BP 120/60
[2019-03-02] MEDS: PANTOPRAZOLE 40MG TAB (PROTONIX) PO SCH (08:04)
[2019-03-02] MEDS: SENOKOT S TAB PO SCH (08:04)
[2019-03-02] MEDS: ACETAMINOPHEN 500 MG TAB PO SCH (08:04)
[2019-03-02] MEDS: DONEPEZIL 5 MG TAB PO SCH (08:04)
[2019-03-02] MEDS: amLODIPine 10 MG TAB PO SCH (08:04)
[2019-03-02] MEDS: THIAMINE HCL 200 MG/2 ML VIAL (J3411) IM SCH (08:05)
[2019-03-02] MEDS ORDERED: PANT40TA3 PO (10:25)
[2019-03-02] MEDS ORDERED: ARIC1TAB PO (10:25)
[2019-03-02] MEDS ORDERED: HYDR10TAB PO (10:25)
[2019-03-02] MEDS ORDERED: AMLO10TA5 PO (10:25)
[2019-03-02] MEDS ORDERED: NICO14PA TD (10:25)
[2019-03-02] MEDS ORDERED: METO25TA4 PO (10:28)
== END 2019-03-02 14:30 | disposition home health service (06) | DRG 561 ==
LOC: M PM&R 17:15 → EEVIPCON 17:15 → M PM&R 02-17 16:34
PROVIDERS: ADMIT Physical Medicine & Rehabilitation; ATTEND Physical Medicine & Rehabilitation
DX: S72.06 Articular fracture of head of femur (principal); F17.210 Nicotine dependence, cigarettes, uncomplicated; W18.09XD Striking against other object with subsequent fall, subsequent encounter; Y92.019 Unspecified place in single-family (private) house as the place of occurrence of the external cause; Z96.642 Presence of left artificial hip joint; F03.90 Unspecified dementia, unspecified severity, without behavioral disturbance, psychotic disturbance, mood disturbance, and anxiety; F10.10 Alcohol abuse, uncomplicated; K14.9 Disease of tongue, unspecified; I10 Essential (primary) hypertension; R26.89 Other abnormalities of gait and mobility; J44.9 Chronic obstructive pulmonary disease, unspecified; Z88.5 Allergy status to narcotic agent; Z79.899 Other long term (current) drug therapy; Z90.49 Acquired absence of other specified parts of digestive tract; Z79.01 Long term (current) use of anticoagulants

== ENCOUNTER 2021-02-21 10:59 | Inpatient (IN) | payer MEDICARE, MEDICAID ==
[~2021-02-21] VITALS: Ht 167.6 cm; Wt 59.2 kg
[~2021-02-21 10:59] MED LIST changes: -AMLO10TA5 PO; +AMLO1TAB24 PO; +AMLO1TAB25 PO; -AMLO5TAB6 PO; +ARIC1TAB PO; -COUM7.5T PO; +COUM7.5T6 PO; -CYAN500T9 PO; +HYDR10TAB PO; +LISI10TA22 PO; -LISI10TA4 PO; -MAPA325T2 PO; +MAPA325T8 PO; +METO25TA4 PO; +NORV5TAB PO; +PANT40TA29 PO; -PEG1POW PO; +POLY17PO18 PO; +VITA-243 PO; -VITA500T PO; +VITA500T37 PO
--- NOTE | 2021-02-21 12:08 | REP ---
INDICATION: AMS. COMPARISON: Comparison brain CT studies 26 January 2020 and 09 February 2019. TECHNIQUE: Helical scanning is acquired. 5 mm axial images were reformatted. Coronal MPR images were generated. FINDINGS: Preliminary digital investor relations specialist radiograph is unremarkable. Bone window settings demonstrate some vascular calcification in the distal internal carotids. The bony calvarium is intact. The visualized paranasal sinuses are clear. No intraorbital abnormality is seen. On soft tissue window settings, there is moderate generalized volume loss again noted. There are periventricular low-density areas in the white matter of the frontal lobes consistent with small vessel atherosclerotic change. This is unchanged. There is no evidence of intracranial hemorrhage. There is a small old lacunar infarct in the right basal ganglia unchanged from the 2019 prior study. There is also a tiny old lacunar infarct in the left basal ganglia unchanged. No acute high infarction is seen. No mass, midline shift, or extra-axial fluid collection is seen. IMPRESSION: Generalized volume loss, vascular calcification, small vessel changes. Old lacunar infarcts in the basal ganglia. No acute intracranial abnormality. <Electronically signed by Fabio Costa > 02/21/21 [id number]
--- NOTE | 2021-02-21 12:13 | REP ---
INDICATION: AMS. COMPARISON: Comparison chest x-ray January 26, 2020. TECHNIQUE: Sitting portable chest x-ray. FINDINGS: EKG monitoring electrodes are seen. The lungs are symmetrically aerated and free of infiltrate. The pleural angles are sharp. The heart is mildly enlarged. Pulmonary vasculature is not felt to be increased. There is platelike atelectasis in the right base. Mild in degree. Degenerative changes are seen in the thoracic aorta and in the shoulders. IMPRESSION: Mild cardiomegaly. Platelike atelectasis right base. No acute infiltrate. <Electronically signed by Fabio Costa > 02/21/21 [id number]
[2021-02-21 12:32] LABS: BASO % 0.1 % (0.0-1.0); EOS % 0.3 % (0.0-3.0); HEMATOCRIT 37.3 % (36.0-47.0); HEMOGLOBIN 12.2 g/dl (12.0-15.5); LYMPH # 0.9 10^3/uL (1.5-5.0); LYMPH % 9.3 % (24.0-44.0); MEAN CORPUSCULAR HEMOGLOBIN 28.9 pg (27.0-33.0); MEAN CORPUSCULAR HGB CONC 32.7 g/dl (32.0-36.5); MEAN CORPUSCULAR VOLUME 88.4 fl (80.0-96.0); MONO # 0.6 10^3/uL (0.0-0.8); MONO % 5.7 % (2.0-8.0); NEUTROPHILS # 8.3 10^3/uL (1.5-8.5); NEUTROPHILS % 84.3 % (36.0-66.0); PLATELET COUNT, AUTOMATED 165 10^3/uL (150-450); RED BLOOD COUNT 4.22 10^6/uL (4.00-5.40); WHITE BLOOD COUNT 9.8 10^3/uL (4.0-10.0)
[2021-02-21 13:03] LABS: AMPHETAMINES LEVEL URINE NEGATIVE (NEGATIVE); BARBITURATES URINE NEGATIVE (NEGATIVE); BENZODIAZEPINES URINE NEGATIVE (NEGATIVE); CANNABINOIDS URINE NEGATIVE (NEGATIVE); COCAINE METABOLITE URINE NEGATIVE (NEGATIVE); METHADONE URINE NEGATIVE (NEGATIVE); OPIATES URINE NEGATIVE (NEGATIVE); PHENCYCLIDINE URINE NEGATIVE (NEGATIVE)
[2021-02-21 13:10] LABS: ACETAMINOPHEN LEVEL < 2.0 UG/ML (10.0-30.0); ALBUMIN 3.6 GM/DL (3.2-5.2); ALT/SGPT 25 U/L (12-78); BILIRUBIN,DIRECT 0.2 MG/DL (0.0-0.2); BILIRUBIN,TOTAL 0.7 MG/DL (0.2-1.0); BLOOD UREA NITROGEN 18 MG/DL (7-18); CALCIUM LEVEL 8.8 MG/DL (8.8-10.2); CARBON DIOXIDE LEVEL 25 MEQ/L (21-32); CHLORIDE LEVEL 103 MEQ/L (98-107); CK-MB VALUE MASS 14.7 NG/ML (<3.6); CPK CREATINE PHOSPHOKINASE 804 U/L (26-192); CREATININE FOR GFR 0.63 MG/DL (0.55-1.30); ETHYL ALCOHOL (ETHANOL) < 0.003 % (0.000-0.010); GLOMERULAR FILTRATION RATE > 60.0 (>39); GLUCOSE, FASTING 90 MG/DL (70-100); MB/CK RELATIVE INDEX 1.83 (< OR =4); POTASSIUM SERUM 3.9 MEQ/L (3.5-5.1); SALICYLATE LEVEL < 1.7 MG/DL (5.0-30.0); SODIUM LEVEL 137 MEQ/L (136-145); TOTAL PROTEIN 6.7 GM/DL (6.4-8.2); TROPONIN I 0.03 NG/ML (< 0.10)
[2021-02-21] MEDS ORDERED: NS 1,000 ML IV ONE (13:20)
[2021-02-21] MEDS ORDERED: ACETAMINOPHEN TAB 650MG DOSE (2X325MG) PO PRN (13:50)
[2021-02-21] MEDS ORDERED: METOPROLOL TART 25 MG TABLET PO ONE (14:05)
[2021-02-21] MEDS ORDERED: LORazepam 2 MG TAB PO PRN (14:20)
[2021-02-21] MEDS ORDERED: VITMTA PO (15:51)
[2021-02-21] MEDS ORDERED: HOME MED LIST COMPLETE! XX SCH (15:55)
[2021-02-21] MEDS ORDERED: MULTIVITAMIN -ADULT INJECTION 10 ML, THIAMINE INJection 100 MG, FOLIC ACID 1 MG in NS 1... IV ONE (16:00)
[2021-02-21 17:45] VITALS: BP 136/76
--- NOTE | 2021-02-21 19:36 | HPEPDOC ---
[facility] Medical History & Physical Date of Admission Feb 21, 2021 Date of Service: Feb 21, 2021 History and Physical CHIEF COMPLAINT: Fall HISTORY OF PRESENT ILLNESS: 75-year-old female who lives alone with history of alcohol abuse COPD hypertension mechanical fall with previous left femoral neck fracture in 2019 was found to be normal 2 days ago by her neighbors, but was found on the ground by [employer] today. Patient has many cats and dogs with urine and feces all over the house. She was brought in to the ER for further evaluation. Patient cannot provide any history due to disorientation and confusion. She cannot remember why she ended up on the ground or what she was doing 2 days ago. She otherwise denies any chest pain pressure tightness lightheadedness dizziness fever chills nausea vomiting diarrhea abdominal pain dysuria urgency frequency. She admits to generalized weakness and able to get up. She was found to have erythematous areas on her buttocks thighs and arms from lying down on the ground and skin tears over the left hip. Patient could not recall any details regarding her fall. She cannot recall if she had head trauma loss of consciousness seizure activity urine or bowel incontinence. In the emergency room she was found to be hypertensive with systolic pressure to 26/114, with focal neurologic deficits. CT head without contrast was negative negative. Chest x-ray was negative. Coronavirus was negative. EKG was sinus rhythm with and without acute ST with T wave changes. Urine teratology screen was negative. Ethyl alcohol level was negative. She was treated with int ravenous fluids with and a banana bag or mild rhabdomyolysis. She had elevated CPK of 800, but normal creatinine. Patient did not was admitted for hypertensive urgency, altered mental status, and mild rhabdomyolysis. No infectious process was found. PAST MEDICAL HISTORY: Alcohol abuse COPD hypertension mechanical fall with left comminuted femoral neck fracture PAST SURGICAL HISTORY: Appendectomy right hip hemiarthroplasty left hip hemiarthroplasty due to left femoral neck fracture SOCIAL HISTORY: Lives alone has [employer] daughter lives in [place] tobacco abuse denies recreational drug use retired alcohol abuse FAMILY HISTORY: Mother age of 70 from lung cancer. Father dementia ALLERGIES: Please see below. REVIEW OF SYSTEMS: 10 point review of systems negative aside from positive findings in HPI HOME MEDICATIONS: Please see below. PHYSICAL EXAMINATION: VITAL SIGNS: See below GENERAL APPEARANCE: Disheveled. No cyanosis no respiratory distress appears older than her stated age frail HEENT: Dry mucous membrane matted hair chapped lips no JVD thyromegaly cervical lymphadenopathy poor dentition CARDIOVASCULAR: S1-S2 regular rate rhythm no carotid bruit LUNGS: Diminished clear to auscultation no wheezing or rales ABDOMEN: Positive bowel sounds soft nontender nondistended skin tear over the left hip EXTREMITIES: No cyanosis clubbing or pitting edema SKIN: Erythematous buttocks groin bilateral hips and lateral thighs bilateral erythema all over her back Dry skin LABORATORY DATA: See below. IMAGING: See below MICROBIOLOGY: Please see below. ASSESSMENT: today. Patient has many cats and dogs with urine and feces all over the house. She was brought in to the ER for further evaluation. Patient cannot provide any history due to disorientation and confusion. She cannot remember why she ended up on the ground or what she was doing 2 days ago. She otherwise denies any chest pain pressure tightness lightheadedness dizziness fever chills nausea vomiting diarrhea abdominal pain dysuria urgency frequency. She admits to generalized weakness and able to get up. She was found to have erythematous areas on her buttocks thighs and arms from lying down on the ground and skin tears over the left hip. Patient could not recall any details regarding her fall. She cannot recall if she had head trauma loss of consciousness seizure activity urine or bowel incontinence. In the emergency room she was found to be hypertensive with systolic pressure to 26/114, with focal neurologic deficits. CT head without contrast was negative negative. Chest x-ray was negative. Coronavirus was negative. EKG was sinus rhythm with and without acute ST with T wave changes. Urine teratology screen was negative. Ethyl alcohol level was negative. She was treated with intravenous fluids with and a banana bag or mild rhabdomyolysis. She had elevated CPK of 800, but normal creatinine. Patient did not was admitted for hypertensive urgency, altered mental status, and mild rhabdomyolysis. No infectious process was found. PLAN: Hypertensive urgency -Nitroglycerin topically, metoprolol 25 mg every 6 hourly, hydralazine -Holding parameters -CT of the head with no intracranial hemorrhage Altered mental status -Sitter if needed -Possible hypertensive encephalopathy -No infectious process, normal ammonia. Mechanical fall -History of recurrent falls resulting in an hip fractures -Assisted ambulation -Fall precautions Mild rhabdomyolysis IV fluids Monitor creatinine Avoid nonsteroidal anti-inflammatories Alcohol abuse counseling [facility] protocol Delirium tremens precautions Tobacco abuse/COPD Tobacco cessation nicotine replacement Irritant dermatitis turn and reposition 2hrs air mattress keep skin dry topical nystatin to groin skin tears on right hip topicalabx turn and reposition Diet: 2 g sodium Activity: As tolerated, assistance w ambulation DVT prophylaxis: Compression stockings Vital Signs Vital Signs Date Time Temp Pulse Resp B/P (MAP) Pulse Ox O2 Delivery O2 Flow Rate FiO2 02/21/21 17:03 86 175/95 (121) 96 02/21/21 14:30 18 02/21/21 11:14 96.8 Laboratory Data Labs 24H Laboratory Tests 2 02/21/21 11:43: Immature Granulocyte % (Auto) 0.3, Neutrophils (%) (Auto) 84.3H, Lymphocytes (%) (Auto) 9.3L, Monocytes (%) (Auto) 5.7, Eosinophils (%) (Auto) 0.3, Basophils (%) (Auto) 0.1, Neutrophils # (Auto) 8.3, Lymphocytes # (Auto) 0.9L, Monocytes # (Auto) 0.6, Eosinophils # (Auto) 0.0, Basophils # (Auto) 0.0, Nucleated Red Blood Cells % (auto) 0.0, Urine Color YELLOW, Urine Appearance CLEAR, Urine pH 7.0, Urine Specific Malone 1.012, Urine Protein 1+H, Urine Glucose (UA) NEGATIVE, Urine Ketones 1+H, Urine Blood 1+H, Urine Nitrite NEGATIVE, Urine Bilirubin NEGATIVE, Urine Urobilinogen 0.2, Urine Leukocyte Esterase NEGATIVE, Urine WBC (Auto) 0, Urine RBC (Auto) 0, Urine Hyaline Casts (Auto) 3, Urine Bacteria (Auto) NEGATIVE, Urine Squamous Epithelial Cells 2, Urine Sperm (Auto) , Anion Gap 9, Glomerular Filtration Rate > 60.0, Calcium Level 8.8, Total Bilirubin 0.7, Direct Bilirubin 0.2, Aspartate Amino Transf (AST/SGOT) 42H, Alanine Aminotransferase (ALT/SGPT) 25, Alkaline Phosphatase 68, Total Creatine Kinase 804H, Creatine Kinase MB 14.7H, Creatine Kinase MB Relative Index 1.83, Troponin I 0.03, Total Protein 6.7, Albumin 3.6, Albumin/Globulin Ratio 1.2, Thyroid Stimulating Hormone (TSH) 1.710, Salicylates Level < 1.7L, Urine Opiates Screen NEGATIVE, Urine Methadone Screen NEGATIVE, Acetaminophen Level < 2.0L, Urine Barbiturates Screen NEGATIVE, Urine Phencyclidine Screen NEGATIVE, Urine Amphetamines Screen NEGATIVE, Urine Benzodiazepines Screen NEGATIVE, Urine Cocaine Metabolite Screen NEGATIVE, Urine Cannabinoids Screen NEGATIVE, Ethyl Alcohol Level < 0.003 02/21/21 14:46: Ammonia 27 CBC/BMP Laboratory Tests 02/21/21 11:43 Microbiology Microbiology 02/21/21 Respiratory Virus Panel (PCR) (DOLLY) - Final, Complete Home Medications Scheduled Multivitamins (Thera M Plus Tablet) 1 Each Tablet, 1 TAB PO DAILY Allergies Coded Allergies: oxycodone (Verified Adverse Reaction, Mild, confusion, 02/09/19) confusion A-FIB/CHADSVASC A-FIB History Current/History of A-Fib/PAF?: No Current PO Anticoag Therapy: No Age/Risk Factor Scoring CHADSVASC: CHADSVASC Response (Comments) Value Age Risk Factor Age 65-74 years old 1 Gender Risk Factor Female 1 Hx of CHF No 0 Hx of HTN Yes 1 Hx of Stroke/TIA/or VTE No 0 Hx of Diabetes No 0 Hx of Vascular Disease No 0 Total 3 Treatment Treatment ordered: NONE CASPER JORDAN MD Feb 21, 2021 19:36
[2021-02-21] MEDS ORDERED: NICOTINE POLACRILEX 2 MG GUM PO PRN (19:40)
--- NOTE | 2021-02-21 20:04 | ECGEPIP ---
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
[2021-02-21] MEDS: NYSTATIN 100,000 UNITS/GM TOPICAL PWD 15 GM TOP SCH (20:58)
[2021-02-21] MEDS: NITROGLYCERIN 2% OINT 1 GM *U/D* PKT TOP SCH (20:59)
[2021-02-21] MEDS: BACITRACIN OINTMENT 30GM TUBE TOP SCH (21:23)
[2021-02-21 22:00] VITALS: BP 133/73
[2021-02-22 00:06] VITALS: BP 132/91
[2021-02-22] MEDS ORDERED: NS 1,000 ML IV SCH (04:00)
[2021-02-22] MEDS: **hydrALAZINE** 10 MG TAB PO SCH ×5 (05:13→23:57)
[2021-02-22] MEDS: METOPROLOL TART 25 MG TABLET PO SCH ×4 (05:19→23:57)
[2021-02-22 06:00] VITALS: BP 132/86
[2021-02-22 07:34] LABS: HEMATOCRIT 31.7 % (36.0-47.0); HEMOGLOBIN 10.5 g/dl (12.0-15.5); MEAN CORPUSCULAR HEMOGLOBIN 29.4 pg (27.0-33.0); MEAN CORPUSCULAR HGB CONC 33.1 g/dl (32.0-36.5); MEAN CORPUSCULAR VOLUME 88.8 fl (80.0-96.0); PLATELET COUNT, AUTOMATED 158 10^3/uL (150-450); RED BLOOD COUNT 3.57 10^6/uL (4.00-5.40)
[2021-02-22 07:52] LABS: BLOOD UREA NITROGEN 19 MG/DL (7-18); CALCIUM LEVEL 8.3 MG/DL (8.8-10.2); CARBON DIOXIDE LEVEL 24 MEQ/L (21-32); CHLORIDE LEVEL 108 MEQ/L (98-107); CK-MB VALUE MASS 9.8 NG/ML (<3.6); CPK CREATINE PHOSPHOKINASE 633 U/L (26-192); CREATININE FOR GFR 0.63 MG/DL (0.55-1.30); GLOMERULAR FILTRATION RATE > 60.0 (>39); GLUCOSE, FASTING 81 MG/DL (70-100); MB/CK RELATIVE INDEX 1.55 (< OR =4); POTASSIUM SERUM 3.6 MEQ/L (3.5-5.1); SODIUM LEVEL 139 MEQ/L (136-145); TROPONIN I 0.03 NG/ML (< 0.10)
[2021-02-22 08:00] VITALS: BP 129/82
[2021-02-22] MEDS: NITROGLYCERIN 2% OINT 1 GM *U/D* PKT TOP SCH (08:20)
[2021-02-22] MEDS: MULTIVITAMINS/MINERALS THERAP 1 TAB PO SCH (08:21)
[2021-02-22] MEDS: FOLIC ACID 1 MG TAB PO SCH (08:21)
[2021-02-22] MEDS: THIAMINE 100 MG TAB PO SCH (08:21)
[2021-02-22] MEDS: BACITRACIN OINTMENT 30GM TUBE TOP SCH ×2 (08:25→21:06)
[2021-02-22] MEDS: NYSTATIN 100,000 UNITS/GM TOPICAL PWD 15 GM TOP SCH ×2 (08:31→21:06)
--- NOTE | 2021-02-22 11:04 | IPN ---
PROGRESS NOTE DATE: 02/22/2021 SUBJECTIVE: The patient was seen and examined at bedside. Chart has been reviewed. She is currently working with physical therapy at the bedside and currently is sitting on a chair. The patient does not recall any of the events leading her to fall at home. She has no complaints of pain today. She said she had no dyspnea, palpitations, lightheadedness when she stood up from her bed to walk this morning. She is requiring one person assistance due to mild weakness as well as gait instability. She otherwise denies any fever, chills, chest pain, pressure, tightness, shortness of breath, nausea, vomiting, diarrhea, abdominal pain, dysuria, urgency, frequency. She slept well last night and has no other complaints this morning. She denies any alcohol withdrawal symptoms such as tremors, nausea, vomiting, abdominal pain, restlessness or anxiety. OBJECTIVE: Vital signs: Temperature 98, pulse 75, respiratory rate 17, blood pressure 129/82, 97% on room air. General: The patient is disoriented to time and place and she is only oriented to herself, pleasantly confused but answering questions appropriately. HEENT: Face is symmetric. Tongue is midline. Uvula is midline, following commands. No JVD, thyromegaly. Lungs: Clear to auscultation, no wheezing, rales or rhonchi. Heart: S1, S2, sinus rhythm. Abdomen: Soft, nontender, nondistended, positive bowel sounds. She has multiple erythematous areas on her back and groin and has a skin tear over the left hip. Laboratory data, imaging studies, microbiology have been reviewed. ASSESSMENT AND PLAN: This is a 74-year-old female who lives alone with history of alcohol abuse, COPD, hypertension, mechanical fall in the past with left femoral neck fracture in 2019 was found by [id number] on the ground with the house, having urine and feces from her cats and dogs, unable to care for herself and was brought in due to disorientation and confusion. Evaluation in the ER showed rhabdomyolysis with elevated CPK, hypertensive urgency with systolic pressure of 226/[address] being negative for any intracranial hemorrhage. Urine toxicology screen was negative. Alcohol level was also negative. EKG was sinus with no acute ST-T wave changes. IMPRESSION: 1. Altered mental status. CT of the head was negative. Ammonia was normal. Urine tox screen and alcohol levels were within normal limits, may be related to hypertensive encephalopathy due to uncontrolled hypertension and mild rhabdomyolysis. The patient may not be safe to live alone. PFS has been consulted. PT, OT are currently working with her, fall precautions, assisted ambulation only. 2. Recurrent mechanical falls due to gait instability. Most likely unable to care for herself at home anymore. PFS has been consulted for possible placement. 3. Mild rhabdomyolysis, on IV fluids, slowly improving, no kidney dysfunction. Encourage continued fluid, oral intake. 4. Hypertension urgency, improved on current regimen on metoprolol q.6 hourly and hydralazine with holding parameters. 5. Alcohol abuse on multivitamin, thiamine, folate. Alcohol cessation counseling. [place] protocol. 6. Tobacco abuse, on nicotine replacement. Tobacco cessation counseling has been provided. DISPOSITION: The patient is currently unable to care for herself at home. She will require placement once medically stable.
[2021-02-22 14:00] VITALS: BP 146/84
[2021-02-22 22:00] VITALS: BP 117/60
[2021-02-22 22:21] VITALS: BP 117/60
[2021-02-23] MEDS: METOPROLOL TART 25 MG TABLET PO SCH ×4 (05:33→23:57)
[2021-02-23] MEDS: **hydrALAZINE** 10 MG TAB PO SCH ×4 (05:33→23:57)
[2021-02-23 06:00] VITALS: BP 147/83
[2021-02-23 06:21] LABS: HEMOGLOBIN 9.6 g/dl (12.0-15.5); MEAN CORPUSCULAR HEMOGLOBIN 28.9 pg (27.0-33.0); MEAN CORPUSCULAR VOLUME 90.4 fl (80.0-96.0); PLATELET COUNT, AUTOMATED 142 10^3/uL (150-450); RED BLOOD COUNT 3.32 10^6/uL (4.00-5.40); WHITE BLOOD COUNT 6.3 10^3/uL (4.0-10.0)
[2021-02-23 06:35] LABS: BLOOD UREA NITROGEN 26 MG/DL (7-18); CALCIUM LEVEL 8.2 MG/DL (8.8-10.2); CARBON DIOXIDE LEVEL 23 MEQ/L (21-32); CHLORIDE LEVEL 113 MEQ/L (98-107); CREATININE FOR GFR 0.66 MG/DL (0.55-1.30); GLOMERULAR FILTRATION RATE > 60.0 (>39); GLUCOSE, FASTING 80 MG/DL (70-100); POTASSIUM SERUM 3.9 MEQ/L (3.5-5.1); SODIUM LEVEL 145 MEQ/L (136-145)
[2021-02-23] MEDS ORDERED: NS 1,000 ML IV SCH (08:30)
[2021-02-23] MEDS: THIAMINE 100 MG TAB PO SCH (09:20)
[2021-02-23] MEDS: FOLIC ACID 1 MG TAB PO SCH (09:20)
[2021-02-23] MEDS: BACITRACIN OINTMENT 30GM TUBE TOP SCH ×2 (09:21→20:03)
[2021-02-23] MEDS: MULTIVITAMINS/MINERALS THERAP 1 TAB PO SCH (09:21)
[2021-02-23] MEDS: NYSTATIN 100,000 UNITS/GM TOPICAL PWD 15 GM TOP SCH ×2 (09:21→20:03)
--- NOTE | 2021-02-23 11:58 | IPNPDOC ---
Date Seen The patient was seen on 02/23/21. Progress Note SUBJECTIVE: admits to being unstable on her feet. still disoriented. cannot recall events at home. CT head negative. no other c/o. despite high sbp, denies h/a, changes in vision, cp, pressure,sob. OBJECTIVE: Vital signs: see below General: pleasantly confused but answering questions appropriately. HEENT: Face is symmetric. Tongue is midline. Uvula is midline, following commands. No JVD, thyromegaly. moist mucus membranes Lungs: Clear to auscultation, no wheezing, rales or rhonchi. I:E ratio 1:2 Heart: S1, S2, sinus rhythm.no carotid bruit Abdomen: Soft, nontender, nondistended, positive bowel sounds. She has multiple erythematous areas on her back and groin and has a skin tear over the left hip. Laboratory data, imaging studies, microbiology have been reviewed. ASSESSMENT AND PLAN: This is a 74-year-old female who lives alone with history of alcohol abuse, COPD, hypertension, mechanical fall in the past with left femoral neck fracture in 2019 was found by [id number] on the ground with the house, having urine and feces from her cats and dogs, unable to care for herself and was brought in due to disorientation and confusion. Evaluation in the ER showed rhabdomyolysis with elevated CPK, hypertensive urgency with systolic pressure of 226/[address] being negative for any intracranial hemorrhage. Urine toxicology screen was negative. Alcohol level was also negative. EKG was sinus with no acute ST-T wave changes. IMPRESSION: 1. Altered mental status. 2. Recurrent mechanical falls due to gait instability. 3. Mild rhabdomyolysis, 4. Hypertension urgency,resolved 5. Alcohol abuse 6. Tobacco abuse 7. Gait instability/Debility 8. Irritant dermatitis 9. Skin tears PLAN: continue ivfluids for mild rhabdomyolysis. encourage oral fluid intake avoid NSAIDs assisted ambulation only and fall precautions unable to care for herself. pfs consulted for placement options. medically stable . aru consulted. VS, I&O, 24H, Fishbone Vital Signs/I&O Vital Signs Date Time Temp Pulse Resp B/P (MAP) Pulse Ox O2 Delivery O2 Flow Rate FiO2 02/23/21 06:00 98.4 78 17 147/83 (104) 95 Room Air I&O- Last 24 Hours up to 6 AM 02/23/21 06:00 Intake Total 730 ml Output Total 0 ml Balance 730 ml Laboratory Data 24H LABS Laboratory Tests 2 02/23/21 05:51: Nucleated Red Blood Cells % (auto) 0.0, Anion Gap 9, Glomerular Filtration Rate > 60.0, Calcium Level 8.2L CBC/BMP Laboratory Tests 02/23/21 05:51 Microbiology Microbiology 02/21/21 Respiratory Virus Panel (PCR) ([facility]) - Final, Complete CASPER JORDAN MD Feb 23, 2021 11:58
[2021-02-23 14:00] VITALS: BP 174/69
[2021-02-23 22:00] VITALS: BP 135/88
[2021-02-24] MEDS: **hydrALAZINE** 10 MG TAB PO SCH ×3 (05:10→17:34)
[2021-02-24] MEDS: METOPROLOL TART 25 MG TABLET PO SCH ×3 (05:10→17:34)
[2021-02-24 06:00] VITALS: BP 141/88
[2021-02-24] MEDS: BACITRACIN OINTMENT 30GM TUBE TOP SCH ×2 (08:06→21:40)
[2021-02-24] MEDS: MULTIVITAMINS/MINERALS THERAP 1 TAB PO SCH (08:06)
[2021-02-24] MEDS: FOLIC ACID 1 MG TAB PO SCH (08:06)
[2021-02-24] MEDS: THIAMINE 100 MG TAB PO SCH (08:06)
[2021-02-24] MEDS: NYSTATIN 100,000 UNITS/GM TOPICAL PWD 15 GM TOP SCH ×2 (08:06→21:40)
[2021-02-24 09:11] LABS: HEMATOCRIT 34.3 % (36.0-47.0); HEMOGLOBIN 10.9 g/dl (12.0-15.5); MEAN CORPUSCULAR HEMOGLOBIN 28.9 pg (27.0-33.0); MEAN CORPUSCULAR HGB CONC 31.8 g/dl (32.0-36.5); PLATELET COUNT, AUTOMATED 162 10^3/uL (150-450); RED BLOOD COUNT 3.77 10^6/uL (4.00-5.40); WHITE BLOOD COUNT 8.2 10^3/uL (4.0-10.0)
[2021-02-24 09:37] LABS: BLOOD UREA NITROGEN 24 MG/DL (7-18); CALCIUM LEVEL 8.5 MG/DL (8.8-10.2); CARBON DIOXIDE LEVEL 25 MEQ/L (21-32); CHLORIDE LEVEL 113 MEQ/L (98-107); CREATININE FOR GFR 0.63 MG/DL (0.55-1.30); GLOMERULAR FILTRATION RATE > 60.0 (>39); GLUCOSE, FASTING 83 MG/DL (70-100); POTASSIUM SERUM 3.9 MEQ/L (3.5-5.1); SODIUM LEVEL 144 MEQ/L (136-145)
--- NOTE | 2021-02-24 14:19 | REP ---
INDICATION: PAIN S/P FALL. COMPARISON: None TECHNIQUE: Although the exam ordered is bilateral hip only a single AP view of the right hip has been submitted for interpretation at this time. A note in the [employer] power jacket indicates that this was the only image that could be obtained at this time. FINDINGS: There is a right hip arthroplasty which appears unchanged compared to the AP pelvis of 02/09/2019. There is no evidence of an acute fracture, dislocation, or subluxation on this limited single view exam. IMPRESSION: As above <Electronically signed by Ayo Curiel > 02/24/21 0716
[2021-02-24 22:00] VITALS: BP 165/90
[2021-02-25] MEDS: **hydrALAZINE** 10 MG TAB PO SCH ×5 (00:13→23:31)
[2021-02-25] MEDS: METOPROLOL TART 25 MG TABLET PO SCH ×5 (00:13→23:30)
[2021-02-25 06:00] VITALS: BP 161/81
[2021-02-25 06:25] LABS: HEMOGLOBIN 10.5 g/dl (12.0-15.5); MEAN CORPUSCULAR HEMOGLOBIN 29.3 pg (27.0-33.0); MEAN CORPUSCULAR HGB CONC 32.8 g/dl (32.0-36.5); MEAN CORPUSCULAR VOLUME 89.4 fl (80.0-96.0); PLATELET COUNT, AUTOMATED 167 10^3/uL (150-450); RED BLOOD COUNT 3.58 10^6/uL (4.00-5.40); WHITE BLOOD COUNT 9.9 10^3/uL (4.0-10.0)
[2021-02-25 06:54] LABS: BLOOD UREA NITROGEN 20 MG/DL (7-18); CALCIUM LEVEL 8.5 MG/DL (8.8-10.2); CARBON DIOXIDE LEVEL 24 MEQ/L (21-32); CHLORIDE LEVEL 111 MEQ/L (98-107); GLOMERULAR FILTRATION RATE > 60.0 (>39); GLUCOSE, FASTING 95 MG/DL (70-100); POTASSIUM SERUM 3.9 MEQ/L (3.5-5.1); SODIUM LEVEL 143 MEQ/L (136-145)
[2021-02-25] MEDS: FOLIC ACID 1 MG TAB PO SCH (09:43)
[2021-02-25] MEDS: BACITRACIN OINTMENT 30GM TUBE TOP SCH ×2 (09:43→21:26)
[2021-02-25] MEDS: THIAMINE 100 MG TAB PO SCH (09:43)
[2021-02-25] MEDS: MULTIVITAMINS/MINERALS THERAP 1 TAB PO SCH (09:43)
[2021-02-25] MEDS: NYSTATIN 100,000 UNITS/GM TOPICAL PWD 15 GM TOP SCH ×2 (09:43→21:26)
[2021-02-26] MEDS: **hydrALAZINE** 10 MG TAB PO SCH ×2 (05:33→12:13)
[2021-02-26] MEDS: METOPROLOL TART 25 MG TABLET PO SCH ×2 (05:34→12:14)
[2021-02-26 06:00] VITALS: BP 162/70
[2021-02-26 06:51] LABS: HEMATOCRIT 28.5 % (36.0-47.0); HEMOGLOBIN 9.5 g/dl (12.0-15.5); MEAN CORPUSCULAR HEMOGLOBIN 29.8 pg (27.0-33.0); MEAN CORPUSCULAR HGB CONC 33.3 g/dl (32.0-36.5); MEAN CORPUSCULAR VOLUME 89.3 fl (80.0-96.0); PLATELET COUNT, AUTOMATED 152 10^3/uL (150-450); RED BLOOD COUNT 3.19 10^6/uL (4.00-5.40); WHITE BLOOD COUNT 8.3 10^3/uL (4.0-10.0)
[2021-02-26 07:39] LABS: BLOOD UREA NITROGEN 21 MG/DL (7-18); CALCIUM LEVEL 8.1 MG/DL (8.8-10.2); CARBON DIOXIDE LEVEL 23 MEQ/L (21-32); CHLORIDE LEVEL 112 MEQ/L (98-107); CREATININE FOR GFR 0.55 MG/DL (0.55-1.30); GLOMERULAR FILTRATION RATE > 60.0 (>39); GLUCOSE, FASTING 89 MG/DL (70-100); POTASSIUM SERUM 3.7 MEQ/L (3.5-5.1); SODIUM LEVEL 142 MEQ/L (136-145)
[2021-02-26] MEDS: BACITRACIN OINTMENT 30GM TUBE TOP SCH (09:00)
[2021-02-26] MEDS: MULTIVITAMINS/MINERALS THERAP 1 TAB PO SCH (09:03)
[2021-02-26] MEDS: THIAMINE 100 MG TAB PO SCH (09:03)
[2021-02-26] MEDS: FOLIC ACID 1 MG TAB PO SCH (09:03)
[2021-02-26] MEDS: NYSTATIN 100,000 UNITS/GM TOPICAL PWD 15 GM TOP SCH (09:04)
--- NOTE | 2021-02-26 10:05 | DS.PDOC ---
Discharge Summary General Date of Admission Feb 21, 2021 at 13:47 Date of Discharge 02/26/21 Discharge Summary PROCEDURES PERFORMED DURING STAY: [None]. 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 h/o B12 deficiency Right hip hemiarthroplasty Appendectomy Alcohol abuse Old lacunar infarcts as per CT head COMPLICATIONS/CHIEF COMPLAINT: FALL. HOSPITAL COURSE: 75-year-old female who lives alone with history of alcohol abuse, COPD, hypertension ,mechanical fall with previous left femoral neck fracture in 2019 was found to be normal 2 days prior to her admission to the hospital. She was then found on the ground by [employer] on 02/21/2021 and was brought to the ED for evaluation. Patient's living environment was deplorable. Patient has many cats and dogs with urine and feces all over the house. Patient could not provide any history due to disorientation and confusion during admission. She could not remember how she ended up on the ground. She admitted to generalized weakness and unable to get up. She was found to have erythematous areas on her buttocks thighs and arms from lying down on the ground and skin tears over the left hip. Patient could not recall any details regarding her fall. In the emergency room she was found to be hypertensive with systolic pressure to 226/114, with no focal neurologic deficits. CT head without contrast was negative negative. Chest x-ray was negative. Coronavirus was negative. EKG was sinus rhythm with and without acute ST with T wave changes. Urine teratology screen was negative. Ethyl alcohol level was negative. She was treated with intravenous fluids with and a banana bag or mild rhabdomyolysis. She had elevated CPK of 800, but normal creatinine. Patient did not was admitted for hypertensive urgency, altered mental status, and mild rhabdomyolysis. No infectious process was found. Patient continued to have problems with gait instability and chronic cognitive impairment. Patient was evaluated by PT and OT and recommended continued rehab after discharge. Patient family services spoke with the EMS who brought the patient and Adult Protective Services. Patient's house is in deplorable condition with multiple cats, a dog and a raccoon. Patient has been unable to take care of herself and her house. Patient's daughter will be unable to provide care to the patient . Patient will be discharged to subacute rehab with likely transition to long-term care. DISCHARGE MEDICATIONS: Please see below. ALLERGIES: Please see below. PHYSICAL EXAMINATION ON DISCHARGE: VITAL SIGNS: Please see below. GENERAL: Awake laying down in bed in no distress, pleasantly confused, not oriented to place or time, oriented only to person HEENT: Normocephalic atraumatic moist mucous membranes anicteric eyes NECK: No JVD, no thyromegaly CARDIOVASCULAR EXAMINATION: Heart rate normal, regular, normal S1-S2 no rub murmur gallop RESPIRATORY EXAMINATION: Bilateral vesicular breath sounds, no added sound ABDOMINAL EXAMINATION: Soft, nontender, bowel sounds normal EXTREMITIES: No edema NEUROLOGICAL EXAMINATION: No focal neuro deficits LABORATORY DATA: Please see below. IMAGING: CT head without contrast Preliminary digital no experience radiograph is unremarkable. Bone window settings demonstrate some vascular calcification in the distal internal carotids. The bony calvarium is intact. The visualized paranasal sinuses are clear. No intraorbital abnormality is seen. On soft tissue window settings, there is moderate generalized volume loss again noted. There are periventricular low-density areas in the white matter of the frontal lobes consistent with small vessel atherosclerotic change. This is unchanged. There is no evidence of intracranial hemorrhage. There is a small old lacunar infarct in the right basal ganglia unchanged from the 2019 prior study. There is also a tiny old lacunar infarct in the left basal ganglia unchanged. No acute high infarction is seen. No mass, midline shift, or extra-axial fluid collection is seen. IMPRESSION: Generalized volume loss, vascular calcification, small vessel changes. Old lacunar infarcts in the basal ganglia. No acute intracranial abnormality. ACTIVITY: [As tolerated]. DIET: Regular DISPOSITION: [facility] DISCHARGE INSTRUCTIONS: Follow-up with MD at the nursing Needs referral to neurology for chronic cognitive impairment/dementia DISCHARGE CONDITION: [Stable]. TIME SPENT ON DISCHARGE: 35 minutes. Vital Signs/I&Os Vital Signs Date Time Temp Pulse Resp B/P (MAP) Pulse Ox O2 Delivery O2 Flow Rate FiO2 02/26/21 06:00 97.2 74 18 162/70 (100) 93 Room Air I&O- Last 24 Hours up to 6 AM 02/26/21 06:00 Intake Total 1205 ml Balance 1205 ml Laboratory Data Labs 24H Laboratory Tests 2 02/25/21 12:00: Coronavirus (COVID-19)(PCR) NEGATIVE 02/26/21 06:07: Nucleated Red Blood Cells % (auto) 0.0, Anion Gap 7L, Glomerular Filtration Rate > 60.0, Calcium Level 8.1L CBC/BMP Laboratory Tests 02/26/21 06:07 Microbiology Microbiology 02/21/21 Respiratory Virus Panel (PCR) ([facility]) - Final, Complete Discharge Medications Scheduled Multivitamins (Thera M Plus Tablet) 1 Each Tablet, 1 TAB PO DAILY, (Reported) Allergies Coded Allergies: oxycodone (Verified Adverse Reaction, Mild, confusion, 02/09/19) confusion Nabila Diaz MD Feb 26, 2021 09:24
[2021-02-26] MEDS ORDERED: METO50TA7 PO (10:10)
[2021-02-26] MEDS ORDERED: HYDR-3910 PO (10:10)
[2021-02-26] MEDS ORDERED: BACI50OI TOP (10:10)
[2021-02-26] MEDS ORDERED: FOLI1TAB11 PO (10:10)
[2021-02-26] MEDS ORDERED: NICO2GUM PO (10:10)
[2021-02-26] MEDS ORDERED: THIA100TA PO (10:10)
[2021-02-26 12:13] VITALS: BP 148/83
[2021-02-26 12:39] LABS: FERRITIN 54 NG/ML (8-252); FOLATE > 24.0 NG/ML (>5.4); IRON (FE) 16 UG/DL (50-170); PERCENT SATURATION 6.9 % (13.2-45.0); TOTAL IRON BINDING CAPACITY 232 UG/DL (250-450); VITAMIN B12 LEVEL 195 PG/ML (247-911)
== END 2021-02-26 13:29 | DRG 305 ==
LOC: M ED 10:59 → EDBD 10:59 → M ED INP 13:47 → M MSPAV 17:30
PROVIDERS: ADMIT General Practice; ATTEND Internal Medicine Nephrology
DX: I16.0 Hypertensive urgency (principal); M62.82 Rhabdomyolysis; J44.9 Chronic obstructive pulmonary disease, unspecified; F17.200 Nicotine dependence, unspecified, uncomplicated; R53.81 Other malaise; R41.82 Altered mental status, unspecified; F10.97 Alcohol use, unspecified with alcohol-induced persisting dementia; R26.89 Other abnormalities of gait and mobility; R29.6 Repeated falls; L24.89 Irritant contact dermatitis due to other agents; R53.1 Weakness; Z20.822 Contact with and (suspected) exposure to COVID-19; Z88.5 Allergy status to narcotic agent; Z87.81 Personal history of (healed) traumatic fracture; Z96.643 Presence of artificial hip joint, bilateral; Z74.1 Need for assistance with personal care; Z59.1 Inadequate housing